=== PATIENT | male | born 1960 | race Caucasian/White ===

== ENCOUNTER 2024-12-24 17:03 | Inpatient (IN) | payer OTHER, SELFPAY ==
[2024-12-24] VITALS (9 sets, daily range): BP systolic 121–158; BP diastolic 76–84; BMI 26.3
--- NOTE | 2024-12-24 13:35 | ED.GENMED ---
ED Provider Triage
<Daron Sorto PA-C - Last Filed: 12/24/24 13:36>
-
Patient seen by provider in Triage?: Seen in Triage
Attestation: A medical screening examination has been initiated by a qualified medical provider. Based on the assessment performed at this time, it has been determined that an emergent medical condition may exist and the patient has been informed
that further medical evaluation and possible additional diagnostic testing may be needed.
HPI: Patient has been experiencing increased exertional dyspnea over the last few weeks, symptoms seem to be more pronounced in the afternoon, developed some pain underneath both arms and has been somewhat pleuritic in nature. Patient recently had
an echocardiogram within the last month and had some form of calcification/abnormality but is unable to further elaborate on this. Patient without any fevers or infectious symptoms. Labs including D-dimer ordered. EKG ordered and without evidence
for STEMI. Patient otherwise stable.
GENERAL: Alert , in no apparent distress
EYE: No visual abnormalities.
NECK: Trachea midline
ENT: No visible abnormalities.
LUNGS: No acute respiratory distress
NEUROLOGICAL: Alert and oriented
SKIN: Skin intact. No visible changes.
MUSCULOSKELETAL: Moving extremities normally
PSYCH: Normal and appropriate interaction.
This is a medical evaluation conducted in person to initiate diagnostic evaluation and provide initial therapeutics. Please see further documentation by the treating clinician.
History of Present Illness
<Daron Sorto PA-C - Last Filed: 12/24/24 13:36>
General
Chief Complaint: Breathing Problem
Time Seen by Provider: 12/24/24 14:55
<Td Jeronimo DO - Last Filed: 12/25/24 19:03>
General
Source: patient
Exam Limitations: none
History of Present Illness
History of Present Illness:
See MDM
Past History
<Daron Sorto PA-C - Last Filed: 12/24/24 13:36>
Past History
ED Past Medical History: CAD, HTN, NIDDM, Renal failure and Other (Kidney transplant)
<Td Jeronimo, DO - Last Filed: 12/25/24 19:03>
Past History
ED Past Surgical History: Other (Kidney transplant)
Social History
Tobacco: Non-smoker
Alcohol: None
Phy Exam
<Td Jeronimo, DO - Last Filed: 12/25/24 19:03>
Physical Exam
Physical Exam:
See MDM
Scores
<Td Jeronimo, DO - Last Filed: 12/25/24 19:03>
Heart Failure Risk
Heart Failure Risk Score: Not Applicable
Course
<Daron Sorto PA-C - Last Filed: 12/24/24 13:36>
Orders/Labs/Results
Orders:
Orders
12/24/24 13:16
Electrocardiogram (*1) Urgent
Reason for Study: Shortness of Breath
12/24/24 13:17
EKG- Treatment ONCE
12/24/24 13:40
COVID-19 Antigen Urgent
Source: Nasal Swab
Complete Blood Count/With Diff Urgent
Comprehensive Metabolic Panel Urgent
D-Dimer Urgent
Glycohemoglobin (HgbA1c) Urgent
NT-proBNP Urgent
Troponin I Urgent
Influenza A+B Rapid Molecular Urgent
TOSHA Source: Nasal Swab
Specimen Description:
12/24/24 15:06
Aspirin Chewable [Low Strength Aspirin] 243 mg PO NOW STA
CR Chest - 2 Views Urgent
Comment:
Reason For Exam: SOB with exertion
12/24/24 15:10
Consult Cardiology [CARDIOLOGY CONSULT] Urgent
Consulting Provider: Rob Parker
Was physician already notified: Yes
12/24/24 15:15
Electrocardiogram (*1) Urgent
Reason for Study: Shortness of Breath
EKG- Treatment ONCE
12/24/24 15:26
Heparin 4,000 units IV NOW STA
Nursing to Place Non Medication Order As Directed
Physician Order: PTT 6 hours after initial start of Heparin infusion
Above order entered?: Yes
12/24/24 15:30
Heparin 11455 Units/250 ml 25,000 units in 250 ml IV PER PROTOCOL
Weight to be used for heparin protocol in kilograms (kg):: 83.007
Protocol:: Cardiac Tx/Acute Coronary
PTT Goal Range to be used:: PTT 73 to 111 seconds
Order type:: Initial
INITIAL Infusion Dose (UNITS/KG/hr) & then follow protocol:: 15 units/kg/hr
Infusion Dose in UNITS/hr & then follow protocol (UNITS/hr):: 1,250
INFUSION RATE in mL/hr & then follow protocol (mL/hr):: 12.5
PTT less than or equal to 64 seconds:: Increase rate by 200 units/hr (+ 2 mL/hr)
PTT 64.1 to 72.9 seconds:: Increase rate by 100 units/hr (+ 1 mL/hr)
PTT 73 to 111 seconds:: Target Range. No change in rate.
PTT 111.1 to 130.9 seconds:: Decrease rate by 100 units/hr (- 1 mL/hr)
PTT 131 to 199.9 seconds:: HOLD for 1 hr. Then decrease rate by 200 units/hr (- 2 mL/hr)
PTT greater than or equal to 200 seconds:: HOLD for 2 hrs & Notify Provider. Then decrease by 200 units/hr (-
2 mL/hr)
Lab follow-up:: Each change, PTT q6h until 2 consecutive are therapeutic. Then PTT
daily.
12/24/24 15:33
PTT Urgent
Comment: Obtain baseline before beginning heparin infusion if not already collected
12/24/24 16:14
Admit/Transfer Patient As Directed
Co-Sign Provider:
Level of Care: Inpatient admission
Assign to:: IVU
Physician / Group: Ceasar Corral
Diagnosis: NSTEMI, chest pain
Reason for Hospitalization: NSTEMI, chest pain
Expected length of stay greater than two midnights?: Yes
ELOS- Estimated Length of Stay in days: 3
I certify the patient meets the requirements for IP care: Yes
12/24/24 16:15
PRN Pain Medication Management As Directed
May give lesser potent ordered pain med per pt: Yes
preference::
Protocol:: Medication orders for pain may be administered in a
manner that supports deferring to patient preference
when the pt is:
- Requesting an ordered lesser potent pain medication.
Least to most potent pain medications are defined
as: acetaminophen < NSAID < tramadol < opioids
(morphine, oxycodone, hydromorphone).
- Requesting a lesser dose of the same medication IF
ORDERED.
- Requesting a less intrusive route of administration
if both routes are prescribed by the provider (PO <
IV).
12/24/24 16:17
Code Status As Directed
Resuscitation Status: Full Code
12/24/24 16:20
Fentanyl Citrate/Pf [Sublimaze] 100 mcg .ROUTE .STK-MED ONE
Heparin 10,000 units .ROUTE .STK-MED ONE
Midazolam HCl [Versed] 2 mg .ROUTE .STK-MED ONE
12/24/24 17:07
Electrocardiogram (*1) Q6H
Reason for Study: Chest Pain
Comment: at admission and Q3H for total of 3, to be done with each troponin
12/24/24 17:07
Activity As Directed
Activity Level: Out of Bed-Early Mobility
Bedside Glucose Monitoring As Directed
Frequency: AC&HS
Additional Instructions:: Change to q6h if pt on TPN, tube feeding or not eating
INT (Intravenous Needle Therapy) As Directed
Comment: maintain peripheral IV access
Intake/ Output As Directed
Frequency: Per unit guidelines
Vital Signs As Directed
Frequency: q4h
Weight As Directed
Frequency: Once
12/24/24 17:20
Dextrose 50%-Water [Dextrose 50% Syringe] 12.5 grams IV [id number] PRN
Glucagon [GlucaGen] 1 mg IM PRN PRN
Insulin Aspart Corrective Low [Novolog Flexpen-Low Resistance] See Protocol SC AC
Nitroglycerin Sublingual [Nitrostat (Sublingual)] 0.4 mg SL [id number] PRN
12/24/24 18:00
Repaglinide [Prandin] 3 mg PO MEALS
Rosuvastatin Calcium [Crestor] 40 mg PO QPM
12/24/24 20:00
Carvedilol [Coreg] 6.25 mg PO BID
Magnesium l-Lactate [Mag-Tab Sr] 84 mg PO BID
Mycophenolate [Cellcept] 500 mg PO BID
12/25/24 04:04
Cardiovascular Evaluation IN AM
Comprehensive Metabolic Panel IN AM
12/25/24 05:07
Electrocardiogram (*1) Q6H
Reason for Study: Chest Pain
Comment: at admission and Q3H for total of 3, to be done with each troponin
12/25/24 06:00
Tacrolimus Xr [Envarsus Xr] 1 mg PO DAILY@0600
12/25/24 08:00
Aspirin Low Dose EC [Aspir Low (Enteric Coated)] 81 mg PO DAILY
Dapagliflozin [Farxiga] 10 mg PO DAILY
Losartan [Cozaar] 25 mg PO DAILY
Prednisone [Deltasone] 5 mg PO DAILY
Tacrolimus Xr [Envarsus Xr] 1.5 mg PO DAILY
12/25/24 12:00
Cholecalciferol (Vitamin D3) [VITAMIN D3 (cholecalciferol)] 25 mcg PO NOON
12/26/24 06:00
Complete Blood Count/No Diff IN AM
Comprehensive Metabolic Panel IN AM
Abnormal Lab Results
12/24/24
13:40
MCHC 32.9 L g/dL
(33.0-37.0)
Absolute Neuts (auto) 7.3 H 10^3/uL
(1.4-6.5)
Absolute Lymphs (auto) 0.6 L 10^3/uL
(1.2-3.4)
Neutrophils % 84.7 H %
(42.2-75.2)
Lymphocytes % 6.3 L %
(20.5-51.1)
BUN 23 H mg/dl
(9-20)
Glucose 241 H mg/dl
(70-99)
Hemoglobin A1c 7.3 H %
(4.0-5.6)
Troponin I 0.883 H* ng/ml
12/24/24 13:40
12/24/24 13:40
Vital Signs
Initial and Last Documented VS:
Initial Vital Signs
Temp Pulse Resp BP Pulse Ox
98.3 F 92 20 142/83 100
12/24/24 13:34 12/24/24 13:34 12/24/24 13:34 12/24/24 13:34 12/24/24 13:34
Last Documented Vital Signs
Temp Pulse Resp BP Pulse Ox
98.2 F 81 18 116/64 97
12/25/24 15:14 12/25/24 15:14 12/25/24 15:14 12/25/24 15:14 12/25/24 15:14
<Td Jeronimo, DO - Last Filed: 12/25/24 19:03>
Orders/Labs/Results
Orders:
Orders
12/24/24 13:16
Electrocardiogram (*1) Urgent
Reason for Study: Shortness of Breath
12/24/24 13:17
EKG- Treatment ONCE
12/24/24 13:40
COVID-19 Antigen Urgent
Source: Nasal Swab
Complete Blood Count/With Diff Urgent
Comprehensive Metabolic Panel Urgent
D-Dimer Urgent
Glycohemoglobin (HgbA1c) Urgent
NT-proBNP Urgent
Troponin I Urgent
Influenza A+B Rapid Molecular Urgent
TOSHA Source: Nasal Swab
Specimen Description:
12/24/24 15:06
Aspirin Chewable [Low Strength Aspirin] 243 mg PO NOW STA
CR Chest - 2 Views Urgent
Comment:
Reason For Exam: SOB with exertion
12/24/24 15:10
Consult Cardiology [CARDIOLOGY CONSULT] Urgent
Consulting Provider: Rob Parker
Was physician already notified: Yes
12/24/24 15:15
Electrocardiogram (*1) Urgent
Reason for Study: Shortness of Breath
EKG- Treatment ONCE
12/24/24 15:26
Heparin 4,000 units IV NOW STA
Nursing to Place Non Medication Order As Directed
Physician Order: PTT 6 hours after initial start of Heparin infusion
Above order entered?: Yes
12/24/24 15:30
Heparin [id number] Units/250 ml 25,000 units in 250 ml IV PER PROTOCOL
Weight to be used for heparin protocol in kilograms (kg):: 83.007
Protocol:: Cardiac Tx/Acute Coronary
PTT Goal Range to be used:: PTT 73 to 111 seconds
Order type:: Initial
INITIAL Infusion Dose (UNITS/KG/hr) & then follow protocol:: 15 units/kg/hr
Infusion Dose in UNITS/hr & then follow protocol (UNITS/hr):: 1,250
INFUSION RATE in mL/hr & then follow protocol (mL/hr):: 12.5
PTT less than or equal to 64 seconds:: Increase rate by 200 units/hr (+ 2 mL/hr)
PTT 64.1 to 72.9 seconds:: Increase rate by 100 units/hr (+ 1 mL/hr)
PTT 73 to 111 seconds:: Target Range. No change in rate.
PTT 111.1 to 130.9 seconds:: Decrease rate by 100 units/hr (- 1 mL/hr)
PTT 131 to 199.9 seconds:: HOLD for 1 hr. Then decrease rate by 200 units/hr (- 2 mL/hr)
PTT greater than or equal to 200 seconds:: HOLD for 2 hrs & Notify Provider. Then decrease by 200 units/hr (-
2 mL/hr)
Lab follow-up:: Each change, PTT q6h until 2 consecutive are therapeutic. Then PTT
daily.
12/24/24 15:33
PTT Urgent
Comment: Obtain baseline before beginning heparin infusion if not already collected
12/24/24 16:14
Admit/Transfer Patient As Directed
Co-Sign Provider:
Level of Care: Inpatient admission
Assign to:: IVU
Physician / Group: Ceasar Corral
Diagnosis: NSTEMI, chest pain
Reason for Hospitalization: NSTEMI, chest pain
Expected length of stay greater than two midnights?: Yes
ELOS- Estimated Length of Stay in days: 3
I certify the patient meets the requirements for IP care: Yes
12/24/24 16:15
PRN Pain Medication Management As Directed
May give lesser potent ordered pain med per pt: Yes
preference::
Protocol:: Medication orders for pain may be administered in a
manner that supports deferring to patient preference
when the pt is:
- Requesting an ordered lesser potent pain medication.
Least to most potent pain medications are defined
as: acetaminophen < NSAID < tramadol < opioids
(morphine, oxycodone, hydromorphone).
- Requesting a lesser dose of the same medication IF
ORDERED.
- Requesting a less intrusive route of administration
if both routes are prescribed by the provider (PO <
IV).
12/24/24 16:17
Code Status As Directed
Resuscitation Status: Full Code
12/24/24 16:20
Fentanyl Citrate/Pf [Sublimaze] 100 mcg .ROUTE .STK-MED ONE
Heparin 10,000 units .ROUTE .STK-MED ONE
Midazolam HCl [Versed] 2 mg .ROUTE .STK-MED ONE
12/24/24 17:07
Electrocardiogram (*1) Q6H
Reason for Study: Chest Pain
Comment: at admission and Q3H for total of 3, to be done with each troponin
12/24/24 17:07
Activity As Directed
Activity Level: Out of Bed-Early Mobility
Bedside Glucose Monitoring As Directed
Frequency: AC&HS
Additional Instructions:: Change to q6h if pt on TPN, tube feeding or not eating
INT (Intravenous Needle Therapy) As Directed
Comment: maintain peripheral IV access
Intake/ Output As Directed
Frequency: Per unit guidelines
Vital Signs As Directed
Frequency: q4h
Weight As Directed
Frequency: Once
12/24/24 17:20
Dextrose 50%-Water [Dextrose 50% Syringe] 12.5 grams IV [id number] PRN
Glucagon [GlucaGen] 1 mg IM PRN PRN
Insulin Aspart Corrective Low [Novolog Flexpen-Low Resistance] See Protocol SC AC
Nitroglycerin Sublingual [Nitrostat (Sublingual)] 0.4 mg SL [id number] PRN
12/24/24 18:00
Repaglinide [Prandin] 3 mg PO MEALS
Rosuvastatin Calcium [Crestor] 40 mg PO QPM
12/24/24 20:00
Carvedilol [Coreg] 6.25 mg PO BID
Magnesium l-Lactate [Mag-Tab Sr] 84 mg PO BID
Mycophenolate [Cellcept] 500 mg PO BID
12/25/24 04:04
Cardiovascular Evaluation IN AM
Comprehensive Metabolic Panel IN AM
12/25/24 05:07
Electrocardiogram (*1) Q6H
Reason for Study: Chest Pain
Comment: at admission and Q3H for total of 3, to be done with each troponin
12/25/24 06:00
Tacrolimus Xr [Envarsus Xr] 1 mg PO DAILY@0600
12/25/24 08:00
Aspirin Low Dose EC [Aspir Low (Enteric Coated)] 81 mg PO DAILY
Dapagliflozin [Farxiga] 10 mg PO DAILY
Losartan [Cozaar] 25 mg PO DAILY
Prednisone [Deltasone] 5 mg PO DAILY
Tacrolimus Xr [Envarsus Xr] 1.5 mg PO DAILY
12/25/24 12:00
Cholecalciferol (Vitamin D3) [VITAMIN D3 (cholecalciferol)] 25 mcg PO NOON
12/26/24 06:00
Complete Blood Count/No Diff IN AM
Comprehensive Metabolic Panel IN AM
Abnormal Lab Results
12/24/24
13:40
MCHC 32.9 L g/dL
(33.0-37.0)
Absolute Neuts (auto) 7.3 H 10^3/uL
(1.4-6.5)
Absolute Lymphs (auto) 0.6 L 10^3/uL
(1.2-3.4)
Neutrophils % 84.7 H %
(42.2-75.2)
Lymphocytes % 6.3 L %
(20.5-51.1)
BUN 23 H mg/dl
(9-20)
Glucose 241 H mg/dl
(70-99)
Hemoglobin A1c 7.3 H %
(4.0-5.6)
Troponin I 0.883 H* ng/ml
12/24/24 13:40
12/24/24 13:40
Vital Signs
Initial and Last Documented VS:
Initial Vital Signs
Temp Pulse Resp BP Pulse Ox
98.3 F 92 20 142/83 100
12/24/24 13:34 12/24/24 13:34 12/24/24 13:34 12/24/24 13:34 12/24/24 13:34
Last Documented Vital Signs
Temp Pulse Resp BP Pulse Ox
98.2 F 81 18 116/64 97
12/25/24 15:14 12/25/24 15:14 12/25/24 15:14 12/25/24 15:14 12/25/24 15:14
<Td Jeronimo, DO - Last Filed: 12/25/24 19:03>
MDM/Problems Addressed
Differential Diagnosis Includes:
HPI and MDM Narrative:
64-year-old male presenting for evaluation of shortness of breath with exertion. This has been ongoing for the past few days. He has noted that it appears to be worse in the afternoon. Symptoms resolved at rest. EKG and blood work done in
triage. He was brought back immediately when his troponin was found to be elevated. Patient currently symptom-free at rest. I discussed with patient my concern for NSTEMI. Looking at his EKG, he does have ST elevations anteriorly compared to his
prior EKG but he currently denies any shortness of breath or chest pain. He did take his baby aspirin today. Will load with 3 more. I question a prior history of coronary artery disease. Patient states he was given a stent 3 years ago at [facility]
during his workup for his kidney transplant. Patient is nervous about possibly getting contrast for a catheterization.
On my exam, he is well-appearing nontoxic. Lungs appear clear. No leg edema or unilateral tenderness. Will obtain chest x-ray and discussed case with cardiology for admission for further workup of presumed NSTEMI and ACS
Physical exam
General: Well appearing and non-toxic
HEENT: protecting airway
Neck: appears supple
CV: No evidence of cyanosis. Regular rate and rhythm
Resp: No accessory muscle use. Lungs clear
Abd: Non-distended
Extremities: No deformities. No leg edema
Neuro: alert
Psych: Normal affect
Skin: Intact
Problems Addressed including Acute and Chronic Conditions affecting care:
1. Exertional dyspnea
Acuity: acute
Prognosis: unstable
Details: Given the concern for NSTEMI and ACS, cardiology made aware immediately. Patient loaded with 3 aspirin since he already took his first aspirin today. In talks with cardiology, will start heparin
Updates
After patient was found to have an elevated troponin in triage, he was brought back immediately. Patient still symptom-free at rest
3:20 PM after discussing case with cardiology, cardiology at bedside immediately
Repeat EKG was performed which remained concerning for acute coronary syndrome. Cardiology suggesting starting heparin and will bring up to [facility]
Differential Diagnosis (but not limited to): NSTEMI, ACS
Testing considered: Second troponin
Drug therapy (if applicable): OTC meds, please see d/c instruction regarding Rx drugs
Amount and/or Complexity of Data Reviewed
Clinical info obtained from: Patient
External data reviewed: N/A
Labs I independently reviewed (but not limited to): Elevated troponin
Radiology: X-ray independently reviewed: Chest x-ray clear
Pulse Ox: not hypoxic
EKG independently reviewed: Sinus rhythm, ST elevation anteriorly but no significant reciprocal changes, normal
[employer]: Sinus rhythm
Critical Care: The high probability of a clinically significant, sudden or life threatening deterioration of the cardiovascular system(s) required my full and direct attention, intervention and personal management. The aggregate critical care time
was 35 minutes. This time is in addition to time spent performing reported procedures but includes the following:
[x] Data Review and interpretation
[x] Patient assessment and monitoring of vital signs
[x] Documentation
[x] Medication orders and management
Risk of Complication:
Social Determinants of health: Good social support
Discussed with other providers: Case Mgr, hospitalist
Escalation of Care includes Admit/Obs: Given the concern for ACS, patient started on heparin drip and admitted to the [facility]
Occasional wrong word or 'sound a like' substitutions may have occurred due to the inherent limitations of voice recognition software. Read the chart carefully and recognize, using context, where substitutions have occurred.
<Td Jeronimo DO - Last Filed: 12/25/24 19:03>
*Critical Care Note
Total Time (30-74mins, 75-104mins- exclusive of procedures): 35 min
ED Attending Note
<Daron Sorto PA-C - Last Filed: 12/24/24 13:36>
-
Portions of this chart may have been created with voice recognition software.� Occasional wrong word or��sound alike� substitutions may have occurred due to the inherent limitations of voice recognition software.
Discharge Plan
Departure
Patient Disposition: [facility]
Presentation/result/management discussed w/ accepting MD/DO: Hospitalist
Discharge Problem:
NSTEMI (non-ST elevated myocardial infarction)
Interventions
Interventions:
*Risk Screen - Suicide Last Done: 12/24/24 13:34
*General Assessment Last Done: 12/24/24 13:34
*Neglect/Abuse Screening Last Done: 12/24/24 13:34
ED- Fall Risk Assessment Last Done: 12/24/24 16:51
*Nursing Disposition Last Done: 12/24/24 16:51
ED- Cardiac Assessment Last Done: 12/24/24 15:45
ED- Pulmonary Assessment Last Done: 12/24/24 15:45
Discharge Date and Time
Discharge Date/Time: 12/24/24 16:51
[2024-12-24 14:15] LABS: % Basophils 0.3 % (0-2); % Eosinophils 1.2 % (0-6); % Immature Granulocytes 0.5 % (0-0.5); % Lymphocytes 6.3 % (20.5-51.1); % Neutrophils 84.7 % (42.2-75.2); Absolute Eosinophils 0.1 10^3/uL (0-0.7); Absolute Lymphocytes 0.6 10^3/uL (1.2-3.4); Absolute Monocytes 0.6 10^3/uL (0.1-0.6); Absolute Neutrophils 7.3 10^3/uL (1.4-6.5); Hematocrit 42.9 % (39.0-52.0); Hemoglobin 14.1 g/dL (13.0-18.0); Mean Corp Hgb Conc. 32.9 g/dL (33.0-37.0); Mean Corpuscular Hgb 27.8 pg (27.0-31.0); Mean Corpuscular Volume 84.4 fL (80.0-94.0); Mean Platelet Volume 10.4 fL (7.4-10.4); Nucleated Red Blood Cells % 0 % (-); Platelet Count 304 10^3/uL (130-400); Red Blood Cell Count 5.08 10^6/uL (4.70-6.10); Red Cell Dist. Width 13.9 % (11.5-14.5); White Blood Cell Count 8.7 10^3/uL (4.8-10.8)
[2024-12-24 14:23] LABS: D-Dimer 0.33 ug/mlFEU (0.00-0.50)
[2024-12-24 14:26] LABS: ALT (SGPT) 17 U/L (0-50); AST (SGOT) 21 U/L (17-59); Albumin 4.1 g/dl (3.5-5.0); Alkaline Phosphatase 68 U/L (38-126); Blood Urea Nitrogen 23 mg/dl (9-20); Calcium 9.2 mg/dl (8.4-10.2); Carbon Dioxide 27 mmol/L (22-30); Chloride 99 mmol/L (98-107); Glucose 241 mg/dl (70-99); Potassium 4.7 mmol/L (3.5-5.1); Sodium 135 mmol/L (135-145); Total Bilirubin 1.1 mg/dl (0.2-1.3); Total Protein 6.3 g/dl (6.3-8.2); eGFR > 60.00
[2024-12-24 14:34] LABS: COVID-19 Antigen Negative (Negative)
[2024-12-24 14:40] LABS: NT-proBNP 7400 pg/ml; Troponin I 0.883 ng/ml
[2024-12-24] MEDS: LOW STRENGTH ASPIRIN 243 MG PO (15:15)
--- NOTE | 2024-12-24 15:18 | HPS.HSE ---
Addendum entered and electronically signed by Ceasar Corral MD 12/24/24 18:28:
Seen and examined by me independently in collaboration with the nurse practitioner Jorge A.
Past medical history/social history/medication/allergies reviewed.
Lab data and imaging data reviewed. Patient with history of CAD, diabetes mellitus, end-stage renal disease s/p kidney transplant 3 years ago on immunosuppressive agents, hypertension presents with increasing exertional symptom of substernal chest
pain with radiating to the shoulders and upper back and also dyspnea. No symptoms at rest.
His symptom is concerning for unstable angina and with his troponin leak of 0.88 concerning for non-ST elevation [place].
EKG shows inferior infarct age undetermined and anterior septal infarct noted in March 2023.
Admit to telemetry. Patient initiated on IV heparin in the ER which I would continue.
Cardiology consulted who is taking him to [facility] today. Further recommendations from cath report.
Hold his metformin otherwise continue with his home medications. Continue with immunosuppressive agents. Start on sliding scale insulin.
His creatinine is 0.8.
Original Note:
Family Physician
-
Family Physician:
Chief Complaint
-
increased exertional dyspnea
History of Present Illness
Patient is a 64-year-old male with past medical history significant for hypertension, CAD, NIDDM, and hx ESRD s/p kidney transplant who presented to [facility] ED for evaluation of increased exertional dyspnea over the past few weeks with
now associated dull pain under both arms and upper mid back for the last two days. He reports that in the last few days he has noticed getting a headache with these symptoms. Patient reports that he gets short of breath and will stop what he is
doing to take a deep breath or two and be able to continue on. He states all symptoms resolve when he rests or takes a few deep breaths. Patient denies any dizziness, cough, palpitations or nausea.
Medical History
Past Medical History
Past Medical History: Reports Other
Additional Past Medical History:
hypertension
hyperlipidemia
CAD
NIDDM
hx ESRD s/p kidney transplant
Past Surgical History: Reports Other
Additional Past Surgical History:
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
MARI OM1 January 2021
Cystoscopy with stone extraction
Hemodialysis with right chest wall CVC x 8 months in 2020
Mohs, multiple
Cholecystectomy 2014
Social History
Tobacco: Non-smoker
Alcohol: None
Drug: None
Personal:
Living: With Family
Employment: Employed (equipment service architect )
Family History
Family History: Other (Mother: COPD; Father: CAD, DM)
Allergies / Home Medications
Allergies reflects when Allergies were last updated in [facility].
Home Medications with original date entered in [facility]
Allergy/Medication List:
Allergies
Allergy/AdvReac Type Severity Reaction Status Date / Time
No Known Allergies Allergy Verified 12/24/24 13:37
Home Medications
carvedilol 3.125 mg tablet 6.25 mg PO Q12H 03/13/23
metformin 500 mg tablet 1,000 mg PO BID 03/13/23
mycophenolate mofetil 250 mg capsule 500 mg PO BID 03/13/23
prednisone 5 mg tablet 5 mg PO DAILY 03/13/23
repaglinide 1 mg tablet 3 mg PO TID 03/13/23
rosuvastatin 5 mg tablet 5 mg PO QPM 03/13/23
tacrolimus 0.75 mg tablet,extended release 24 hr 1.5 mg PO DAILY 03/13/23
tacrolimus 1 mg capsule,extended release 24 hr 1 mg PO DAILY 03/13/23
aspirin 81 mg tablet,delayed release 81 mg PO DAILY 12/24/24
cholecalciferol (vitamin D3) 25 mcg (1,000 unit) tablet (Vitamin D3) 25 mcg PO NOON 12/24/24
empagliflozin 10 mg tablet (Jardiance) 10 mg PO DAILY 12/24/24
losartan 25 mg tablet 25 mg PO DAILY 12/24/24
magnesium oxide 400 mg PO BID 12/24/24
Review of Systems
-
History Source: Patient
Constitutional: Reports No Symptoms
EENT: Reports No Symptoms
Respiratory: Reports Trouble Breathing (exertional shortness of breath)
Cardiac: Reports Chest Pain (bilateral under arm and mid upper back )
Abdomen/GI: Reports No Symptoms
: Reports No Symptoms
Musculoskeletal: Reports No Symptoms
Skin: Reports No Symptoms
Neurological: Reports Headache
Endocrine: Reports No Symptoms
Hematologic/Lymphatic: Reports No Symptoms
Psych: Reports No Symptoms
Physical Exam
Vital Signs
Vital Signs
Temp Pulse Resp BP Pulse Ox
98.3 F 92 20 142/83 100
12/24/24 13:34 12/24/24 13:34 12/24/24 13:34 12/24/24 13:34 12/24/24 13:34
Physical Exam
General: Well Developed, Well Nourished, No Apparent Distress, Comfortable and Conversant
HEENT: NormoCephalic, Moist mucous membranes, Atraumatic, Idana Conjunctivae, Nose Appears Normal and Ears Appear Normal
Respiratory: Clear and Non Labored Respirations
Cardiac: S1/S2 and Regular Rhythm; No Murmur, Rub or Gallop
Breast: Deferred by me
GI: Soft, Non Tender, Non Distended and Normal Bowel Sounds; No Organomegaly
Rectal: Deferred by Provider
Genito-urinary: Deferred by me
Musculoskeletal: No Clubbing, No Cyanosis and No Edema
Skin: Warm and IV/Catheter Site; No Rash
Neuro: Awake, Alert, AO x 3 and Nonfocal/grossly intact
Psych: Calm and Intact Judgment/Insight
Laboratory Results
-
12/24/24 13:40
12/24/24 13:40
Laboratory Results
Total Bilirubin 1.1 mg/dl (0.2-1.3) 12/24/24 13:40
AST 21 U/L (17-59) 12/24/24 13:40
ALT 17 U/L (0-50) 12/24/24 13:40
Alkaline Phosphatase 68 U/L (38-126) 12/24/24 13:40
Troponin I 0.883 ng/ml H* 12/24/24 13:40
Data Reviewed
-
Medical Tests (Nuc Med, Echo, EKG etc): Report Reviewed by me (EKG: NORMAL SINUS RHYTHM POSSIBLE LEFT ATRIAL ENLARGEMENT LEFT AXIS DEVIATION LEFT VENTRICULAR HYPERTROPHY ( R in aVL , Kranthi product ) INFERIOR INFARCT , AGE UNDETERMINED ANTEROSEPTAL
INFARCT (CITED ON OR BEFORE 13-MAR-2023))
Lab Data: Labs Reviewed by me (trop 0.883, BNP 7400)
Impression/Plan
-
IMPRESSION/PLAN:
#chest pain, NSTEMI
EKG: NORMAL SINUS RHYTHM
POSSIBLE LEFT ATRIAL ENLARGEMENT
LEFT AXIS DEVIATION
LEFT VENTRICULAR HYPERTROPHY ( R in aVL , Kranthi product )
INFERIOR INFARCT , AGE UNDETERMINED
ANTEROSEPTAL INFARCT (CITED ON OR BEFORE 13-MAR-2023)
Troponin 0.883
BNP 7400
- admit to IVU
- consult cardiology
- heparin gtt
#hypertension
- continue carvedilol, and losartan
#hyperlipidemia
#CAD
- continue aspirin and rosuvastatin
#NIDDM
- continue Jardiance and repaglinide
- hold metformin
- AccuCheck AC & HS
- SSI
#hx ESRD
s/p kidney transplant
- continue mycophenolate, prednisone and tacrolimus
Code status: full code
DVT prophylaxis: heparin gtt
--- NOTE | 2024-12-24 15:38 | CON.CAR ---
Addendum entered and electronically signed by Rob Parker MD 12/24/24 16:40:
I saw and examined the patient.
The resident's note was reviewed and I agree with the note.
Comment: 64 year old male with PMH CAD s/p stent placement 3 years ago, HTN, ESRD s/p kidney transplant, presented today with substernal CP radiating to his shoulders and his upper back, as well as SOB. His story is most consistent with
accelerating angina with increased frequency of episodes with less exertion and occurring at rest.
- aspirin heparin
- coronary angiography
- echo tomorrow
- lipid profile
- hgba1c
Original Note:
Consultation
Consultation Request
Date/Time Consultation Requested: 12/24/24
Date/Time Consultation Performed: 12/24/24
Requesting Provider: Dr Rob Parker
Performing Provider: Dr Rob Parker
Reason for Consultation: SOB, CP
Medical History
-
Chief Complaint: CP, SOB
History of Present Illness:
64 year old male with PMH CAD s/p stent placement 3 years ago, HTN, ESRD s/p kidney transplant b/l, presented today with substernal CP radiating to his left shoulder and his upper back. He also reports of SOB on exertion, ongoing for a few weeks.
He reports of CP at rest and on exertion which is worsening for the past few weeks. He states that he had kidney transplant at [facility] 3 years ago. Patient recently had an echocardiogram within the last month and had some form of
calcification/abnormality but is unable to further elaborate on this.
Past Medical History
Past Medical History: CAD, HTN and Renal Failure
Social History
Tobacco: Non-Smoker
Alcohol: None
Drug: None
Personal:
Living: With Family
Allergies / Home Medications
Allergy/AdvReac Type Severity Reaction Status Date / Time
No Known Allergies Allergy Verified 12/24/24 13:37
�Medication �Instructions �Recorded �Confirmed �Type
carvedilol 3.125 mg tablet 6.25 mg PO Q12H 03/13/23 12/24/24 History
metformin 500 mg tablet 1,000 mg PO BID 03/13/23 12/24/24 History
mycophenolate mofetil 250 mg 500 mg PO BID 03/13/23 12/24/24 History
capsule
prednisone 5 mg tablet 5 mg PO DAILY 03/13/23 12/24/24 History
repaglinide 1 mg tablet 3 mg PO TID 03/13/23 12/24/24 History
rosuvastatin 5 mg tablet 5 mg PO QPM 03/13/23 12/24/24 History
tacrolimus 0.75 mg tablet,extended 1.5 mg PO DAILY 03/13/23 12/24/24 History
release 24 hr
tacrolimus 1 mg capsule,extended 1 mg PO DAILY 03/13/23 12/24/24 History
release 24 hr
aspirin 81 mg tablet,delayed 81 mg PO DAILY 12/24/24 12/24/24 History
release
cholecalciferol (vitamin D3) 25 25 mcg PO NOON 12/24/24 12/24/24 History
mcg (1,000 unit) tablet (Vitamin
D3)
empagliflozin 10 mg tablet 10 mg PO DAILY 12/24/24 12/24/24 History
(Jardiance)
losartan 25 mg tablet 25 mg PO DAILY 12/24/24 12/24/24 History
magnesium oxide 400 mg PO BID 12/24/24 12/24/24 History
Review of Systems
-
Respiratory: Trouble Breathing
Cardiac: Chest Pain
Physical Exam
Vital Signs
Temp Pulse Resp BP Pulse Ox
98.3 F 92 20 142/83 100
12/24/24 13:34 12/24/24 13:34 12/24/24 13:34 12/24/24 13:34 12/24/24 13:34
Lab Results
12/24/24 13:40
12/24/24 13:40
Troponin I 0.883 ng/ml H* 12/24/24 13:40
Pox-R-Jzzwlungbfq Pept 7400 pg/ml 12/24/24 13:40
Physical Exam
General: No Apparent Distress
HEENT: Normocephalic and Anicteric
Respiratory: Clear
Cardiac: S1/S2 and Regular Rhythm
Musculoskeletal: No Edema
Impression / Plan
-
Impressions
NSTEMI
ESRD s/p kidney transplant
PLAN
NSTEMI
Prior CAD with stent placement, not sure which artery the stent was placed.
Immunocompromised.
Suspect restenosis, plaque rupture.
Patient will need catheterization.
Contacted warehouse pricing and inventory clerk.
Continue ASA, likely DAPT after
Nitroglycerin as needed for pain.
Check HBA1C
High intensity statin
Continue Heparin
ESRD s/p kidney transplant
Consult nephrology, defer to primary
Patient is concerned about use of contrast damaging his kidneys.
Data Reviewed
-
EKG: Tracing Personally Visualized and interpreted, Report Reviewed by me and Discussed with Physician
Labs: Labs Reviewed by me and Discussed with Physician
[2024-12-24 15:50] LABS: APTT 27.4 Sec (23.4-35.0)
[2024-12-24] MEDS: HEPARIN 4000 UNITS IV (15:56)
[2024-12-24] MEDS: HEPARIN 25000 UNITS/250 ML IV ×2 (15:57→21:17)
--- NOTE | 2024-12-24 17:50 | ITS.CL.PN ---
International Trade Teacher - Procedure Note
Procedure
Procedure Note:
CARDIAC CATHETERIZATION REPORT
Date of Procedure: 12/24/2024
Referring: Dr. Rob Parker MD
Indication: NSTEMI
PROCEDURE(S)
1. left heart catheterization
2. coronary angiography
ACCESS: 6F right radial artery (closure: radial band)
CATHETERS
1. 6F JR4
2. 6F JL3.5
MODERATE SEDATION: 27 minutes of moderate sedation was utilized. An independent medical collector was present to assist with and help manage the patient's level of consciousness and physiologic status.
ULTRASOUND GUIDED VASCULAR ACCESS (right radial artery): Ultrasound was utilized for vascular access. The vessel was visualized under ultrasound and noted to be patent. An image of the vessel was stored permanently in the patient's medical record.
Under direct ultrasound guidance, vascular access was obtained using a modified Seldinger technique and a 6 Azerbaijani sheath was placed.
HEMODYNAMIC DATA
LV 127/9 (EDP 16) mmHg
AO 121/66 (mean 89) mmHg
CORONARY ANGIOGRAPHY
Dominance: Right
LM: large with mild distal tapering
LAD: Large vessel giving rise to 3 moderate caliber diagonal branches. There is a focal severe 95% stenosis in the mid LAD and otherwise mild nonobstructive disease.
LCx: Large vessel giving rise to a large branching OM1, moderate caliber OM 2, and moderate caliber LPL branch. There is an 80% stenosis in the ostial circumflex. There is a widely patent stent in the proximal OM1 branch extending proximally into
the proximal circumflex. There is otherwise mild nonobstructive disease.
RCA: Large vessel giving rise to a large RPDA and two RPL branches. There are serial high grade stenoses in the proximal to mid RCA, high grade ostial disease of the RPDA, moderate disease in the RPAV leading into the RPL branches. There is
competitive flow in the RPL branches from L-R collaterals.
RADIATION: dose 400 mGy; DAP 36.6 Gy*cm2; fluoroscopy time 3.9 min
CONCLUSIONS
1. triple vessel obstructive coronary artery disease as described in a young, diabetic, renal transplant patient
2. mildly elevated LV filling pressure and no aortic stenosis
RECOMMENDATIONS
1. expectant management after cardiac catheterization via right radial approach
2. referral for coronary artery bypass grafting with ZAPATA to LAD and additional grafts to the OM1 and RPDA
3. continue medical management of NSTEMI with heparin drip, nitro as needed for chest pain free, ASA, statin, no P2Y12 and no RASS blockade pending possible CT surgery
4. TTE in AM
5. aggressive secondary prevention of coronary artery disease
Signed: Beck Sool MD, PhD
--- NOTE | 2024-12-24 17:52 | CONSULT.CT ---
Addendum entered and electronically signed by NGHIA Rhoades 12/25/24 07:08:
No issues over night
Original Note:
Consultation
-
Date/Time Consultation Requested: 12/24/24
Date/Time Consultation Performed: 12/24/24
Requesting Provider: Gm Solo
Performing Provider: Natalie AGRAWAL for Ernesto Barrera MD
Reason for Consultation: CABG evaluation
Patient History
Physicians
Outpatient Central Station Operator: Stehp Jim ([facility])
Inpatient Central Station Operator: Gm Solo
History of Present Illness
Corby Ochoa is a 64-year-old male ([id number]) with past medical history significant for coronary disease with prior OM1 stent in 2020, type 2 diabetes, end-stage renal disease status post living donor renal transplant in
2021 (on tacrolimus and prednisone), hypertension and hyperlipidemia, who presented to [facility] emergency room on 12/24/2024 with an approximate 3-week history of intermittent exertional dyspnea associated with back and bilateral underarm pain.
Patient noted blood pressure was higher and took extra dose of blood pressure meds which he felt initially improved symptoms. However symptoms recurred with increased frequency prompting him to seek help. Admission troponin was 0.883 and BNP 7400.
Patient underwent left heart catheterization via right radial artery which reported triple-vessel coronary disease. Patient is currently resting in bed and pain-free.
Pertinent negatives: Denies history of CVA/TIA, asthma, dysphagia, GERD, prior radiation to chest, vein stripping
Past Medical History
Past Medical History: CAD (MARI OM1 01/2021 (OM lesion was an incidental finding during w/u for renal transplant), Cancer (Precancerous lesions removed from face), HTN, Hypercholesterolemia, NIDDM (oral therapy) and Renal Failure (hx dialysis and
living renal transplant (from cousin) in 2021-f/b Dr Laron Yao)
Past Surgical History
Past Surgical History: Cholecystectomy, PCI/Stent (OM1) and Other (Living donor renal transplant 2021)
Family History
Father: Cause of (CAD/CABG in his 50s)
Social History
Alcohol: None
Drug: None
Tobacco: Non-Smoker
Personal:
Living: With Spouse
Employment: Employed (equipment food service substitute)
Allergies
Allergy/AdvReac Type Severity Reaction Status Date / Time
No Known Allergies Allergy Verified 12/24/24 13:37
Home Medications
�Medication �Instructions �Recorded �Confirmed �Type
carvedilol 3.125 mg tablet 6.25 mg PO Q12H 03/13/23 12/24/24 History
metformin 500 mg tablet 1,000 mg PO BID 03/13/23 12/24/24 History
mycophenolate mofetil 250 mg 500 mg PO BID 03/13/23 12/24/24 History
capsule
prednisone 5 mg tablet 5 mg PO DAILY 03/13/23 12/24/24 History
repaglinide 1 mg tablet 3 mg PO TID 03/13/23 12/24/24 History
rosuvastatin 5 mg tablet 5 mg PO QPM 03/13/23 12/24/24 History
tacrolimus 0.75 mg tablet,extended 1.5 mg PO DAILY 03/13/23 12/24/24 History
release 24 hr
tacrolimus 1 mg capsule,extended 1 mg PO DAILY 03/13/23 12/24/24 History
release 24 hr
aspirin 81 mg tablet,delayed 81 mg PO DAILY 12/24/24 12/24/24 History
release
cholecalciferol (vitamin D3) 25 25 mcg PO NOON 12/24/24 12/24/24 History
mcg (1,000 unit) tablet (Vitamin
D3)
empagliflozin 10 mg tablet 10 mg PO DAILY 12/24/24 12/24/24 History
(Jardiance)
losartan 25 mg tablet 25 mg PO DAILY 12/24/24 12/24/24 History
magnesium oxide 400 mg PO BID 12/24/24 12/24/24 History
Review of Systems
-
History Source: Patient
General: Reports No Symptoms
HEENT: Reports No Symptoms
Respiratory: Reports No Symptoms
Cardiac: Reports Chest Pain (back and B/L under arm pain on admission-now resolved)
Abdomen/GI: Reports No Symptoms
: Reports No Symptoms
Musculoskeletal: Reports No Symptoms
Skin: Reports No Symptoms
Neurological: Reports No Symptoms
Vascular: Reports No Symptoms
Physical Exam
Vital Signs
Temp 98.3 F 12/24/24 13:34
Temp route: Oral 12/24/24 13:34
Pulse 87 12/24/24 16:15
Resp Rate 28 12/24/24 16:15
Blood pressure 151/84 12/24/24 16:02
Blood pressure extremity used: Left upper arm 12/24/24 13:34
Position: Sitting 12/24/24 13:34
MAP (cuff-Rusty Monitor) 104 12/24/24 16:02
SaO2 99 12/24/24 16:15
Oxygen Mode of Delivery Room air 12/24/24 13:34
Actual Weight 83.007 kg 12/24/24 15:20
Body Mass Index (BMI) 26.3 12/24/24 15:20
Labs
12/24/24 13:40
12/24/24 13:40
PT Cancelled 12/24/24 20:00
APTT Cancelled 12/24/24 20:00
Hemoglobin A1c Cancelled 12/24/24 17:07
Troponin I 0.883 ng/ml H* 12/24/24 13:40
Lnn-P-Nfltrkbiame Pept 7400 pg/ml 12/24/24 13:40
Diagnostic Studies
LHC 12/24/24:
LM: large with mild distal tapering
LAD: Focal severe 95% mid LAD
LCx: 80% ostial circumflex. Patent stent in the proximal OM1 branch extending proximally into the proximal circumflex
RCA: Serial high grade stenoses in the proximal to mid RCA, high grade ostial disease of the RPDA, moderate disease in the RPAV leading into the RPL branches. There is competitive flow in the RPL branches from L-R collaterals.
Exam
General: Well Developed, Well Nourished and No Apparent Distress
HEENT: Normocephalic and Anicteric
Neck: Trachea Midline
Respiratory: Clear
Cardiac: S1/S2 and Regular Rhythm
GI: Soft, Non Tender, Non Distended and Normal Bowel Sounds
Rectal: Deferred by Provider
Skin: Warm and Dry
Neuro: AO x 3, No Motor Deficits and Nonfocal/Grossly Intact
Extremities: Pulses (+2/4 DP pulses B/L)
Lymph: No Lymphadenopathy
Assessment / Plan
-
64-year-old male with history of type 2 diabetes, end-stage renal disease status post living donor renal transplant (11/11/2021) admitted with NSTEMI and found to have triple-vessel coronary disease
-Surgeon to review imaging and discuss risk/benefit with patient and family
- Preop diagnostics ordered
- patient takes tacrolimus, CellCept, Prednisone for immunosuppression s/p renal transplant
- TTE ordered
- To consider nephrology consult
- holding MFM x 48 hours s/p cardiac cath
- hold Jardiance, losartan
Data Reviewed
-
EKG: Report Reviewed by me and Discussed with Physician
Sand And Gravel Plant Operator: Report Reviewed by me and Discussed with Physician
Labs: Labs Reviewed by me and Discussed with Physician
--- NOTE | 2024-12-24 18:30 | PTCARENOTE ---
Pt received from car barn laborer. NSR on tele with HR 80s. R TR band in place, POX 97% on PA. Post cath IV fluids infusing. Pt oriented to room and admission assessment completed. Pt currently sitting at edge of bed eating dinner. Call may within
reach.
[2024-12-24] MEDS: NOVOLOG FLEXPEN-LOW RESISTANCE SC (18:53)
[2024-12-24 18:55] LABS: Glucose - Point of Care 115 mg/dl (70-99)
[2024-12-24] MEDS: CRESTOR 40 MG PO (19:35)
[2024-12-24] MEDS: PRANDIN PO (20:16)
[2024-12-24] MEDS: COREG 6.25 MG PO (20:17)
[2024-12-24] MEDS: MAG-TAB SR 84 MG PO (20:17)
[2024-12-24] MEDS: CELLCEPT 500 MG PO (20:18)
[2024-12-24] MEDS: PRANDIN 1 MG PO (20:18)
--- NOTE | 2024-12-24 21:33 | PTCARENOTE ---
Pt rec'd at change of shift awake,alert with spouse at bedside. right radial R band removed area cleansed with nss new 2x2 drsg placed. Pt aware of limb restrictions and to call immed for bleeding or swelling at radial site. heparin gtt restarted at
2115 per order.
[2024-12-24 21:59] LABS: Glucose - Point of Care 149 mg/dl (70-99)
[2024-12-25] VITALS (8 sets, daily range): BP systolic 112–136; BP diastolic 64–82; BMI 26.3
--- NOTE | 2024-12-25 02:41 | DOWNTIME ---
There was a flexReceipts Client Hospital Pharmacy Technician Downtime on 12/25/2024 from 0100 to 12/25/2023 at 0235 . Downtime documentation of patient's care, including medication administrations, has been reconciled in the electronic record per guidelines. Refer to the
patient's paper chart under the miscellaneous tab to see printed paper medication records and downtime forms.
[2024-12-25 05:07] LABS: % Basophils 0.4 % (0-2); % Eosinophils 2.8 % (0-6); % Immature Granulocytes 0.3 % (0-0.5); % Lymphocytes 9.7 % (20.5-51.1); % Monocytes 9.8 % (1.7-9.3); Absolute Eosinophils 0.2 10^3/uL (0-0.7); Absolute Lymphocytes 0.7 10^3/uL (1.2-3.4); Absolute Monocytes 0.7 10^3/uL (0.1-0.6); Absolute Neutrophils 5.6 10^3/uL (1.4-6.5); Hematocrit 38.8 % (39.0-52.0); Hemoglobin 12.5 g/dL (13.0-18.0); Mean Corp Hgb Conc. 32.2 g/dL (33.0-37.0); Mean Corpuscular Hgb 26.7 pg (27.0-31.0); Mean Corpuscular Volume 82.9 fL (80.0-94.0); Mean Platelet Volume 10.3 fL (7.4-10.4); Nucleated Red Blood Cells % 0 % (-); Platelet Count 241 10^3/uL (130-400); Red Blood Cell Count 4.68 10^6/uL (4.70-6.10); White Blood Cell Count 7.3 10^3/uL (4.8-10.8)
[2024-12-25 05:08] LABS: APTT 44.5 Sec (23.4-35.0)
[2024-12-25 05:11] LABS: ALT (SGPT) 15 U/L (0-50); AST (SGOT) 21 U/L (17-59); Albumin 3.9 g/dl (3.5-5.0); Alkaline Phosphatase 61 U/L (38-126); Blood Urea Nitrogen 18 mg/dl (9-20); Calcium 8.9 mg/dl (8.4-10.2); Carbon Dioxide 26 mmol/L (22-30); Chloride 101 mmol/L (98-107); Estimated Creatinine Clearance 98 ml/min; Glucose 127 mg/dl (70-99); HDL Cholesterol 26 mg/dl; LDL Cholesterol, Calculated 75 mg/dl; Sodium 137 mmol/L (135-145); Total Bilirubin 1.1 mg/dl (0.2-1.3); Total Cholesterol 122 mg/dl (50-199); Total Protein 5.9 g/dl (6.3-8.2); Triglyceride 105 mg/dl (10-149); Very Low Density Lipoprotein 21 mg/dl (0-30); eGFR > 60.00
[2024-12-25] MEDS: ENVARSUS XR 1 MG PO (06:27)
[2024-12-25] MEDS: ENVARSUS XR 1.5 MG PO (06:27)
[2024-12-25] MEDS: CELLCEPT 500 MG PO ×2 (06:27→18:35)
[2024-12-25 08:22] LABS: Glucose - Point of Care 163 mg/dl (70-99)
[2024-12-25] MEDS: PRANDIN PO ×2 (08:32→13:29)
[2024-12-25] MEDS: COREG 6.25 MG PO ×2 (08:33→19:44)
[2024-12-25] MEDS: DELTASONE 5 MG PO (08:33)
[2024-12-25] MEDS: ASPIR LOW (ENTERIC COATED) 81 MG PO (08:33)
[2024-12-25] MEDS: COZAAR 25 MG PO (08:33)
[2024-12-25] MEDS: MAG-TAB SR 84 MG PO ×2 (08:34→19:44)
[2024-12-25] MEDS: NOVOLOG FLEXPEN-LOW RESISTANCE 1 UNITS SC ×3 (08:34→18:35)
[2024-12-25 09:45] LABS: Glycohemoglobin (HgbA1c) 7.3 % (4.0-5.6)
--- NOTE | 2024-12-25 11:02 | W.PN.CD ---
Addendum entered and electronically signed by Corby Bear MD 12/25/24 17:04:
Primary office admin Dr. Steph Jim at [facility]
Addendum entered and electronically signed by Corby Bear MD 12/25/24 17:04:
I saw and examined the patient.
The CIVIL DEFENSE DIRECTOR's note was reviewed and I agree with the note.
64 year old male with PMH CAD , coronary stenting 3 years ago, renal transplan transplant who presented wt and is noted to to have multivessel coronary artery disease.
-Stable out angina overnight
-Continue current medical therapy
-CT surgery evaluation for CABG in process
-Nephrology has consulted for this patient with history of renal transplant
Original Note:
Today's Communication / Plan
-
-continue heparin drip
-echo today
-CTS consult
-continue ASA, statin, BB
Impression / Plan
-
64 year old male with PMH CAD s/p stent placement 3 years ago, HTN, hx kidney transplant who presented with CP and is now seen to have MVD with CT surgery consult.
NSTEMI/CAD:
-troponin as high as 1.8
-echo pending
-Cath 12/24/24: Dominance: Right. LAD: Large vessel giving rise to 3 moderate caliber diagonal branches. There is a focal severe 95% stenosis in the mid LAD and otherwise mild nonobstructive disease. LCx: 80% stenosis in the ostial circumflex.
There is a widely patent stent in the proximal OM1 branch extending proximally into the proximal circumflex. RCA: serial high grade stenoses in the proximal to mid RCA, high grade ostial disease of the RPDA, moderate disease in the RPAV leading into
the RPL branches. There is competitive flow in the RPL branches from L-R collaterals.
-CT surgery is consulted
-continue heparin drip
-no CP
-LDL 75, now on crestor
HTN:
-BP stable
-continue BB
Hx renal transplant:
-on anti rejection meds
-nephrology is consulted
DM:
-hgbA1C 7.3
-management per primary
Physical Exam
Vital Signs/Labs
Vital Signs
Temp Pulse Resp BP Pulse Ox
98.3 F 83 20 116/76 100
12/25/24 07:50 12/25/24 08:33 12/25/24 07:50 12/25/24 08:33 12/25/24 07:50
12/24/24 12/25/24 12/26/24
06:59 06:59 06:59
Actual Weight 83.1 kg
12/25/24 04:04
12/25/24 04:04
PT Cancelled 12/24/24 20:00
INR Cancelled 12/24/24 20:00
APTT 44.5 Sec (23.4-35.0) H 12/25/24 04:04
Triglycerides 105 mg/dl (10-149) 12/25/24 04:04
LDL Cholesterol, Calc 75 mg/dl 12/25/24 04:04
VLDL Cholesterol, Calc 21 mg/dl (0-30) 12/25/24 04:04
HDL Cholesterol 26 mg/dl 12/25/24 04:04
12/24/24
13:40
Teb-A-Pahjljswdky Pept 7400
LAB Results
12/24/24 12/24/24 12/25/24
13:40 18:39 00:00
Troponin I 0.883 H* 1.290 H* D Cancelled
12/25/24
04:04
Troponin I 1.820 H*
Physical Exam
Constitutional: No acute distress
EENT: Anicteric
Cardiovascular: Rhythm & rate is regular
Respiratory: Respiratory effort normal and Lungs clear to auscul.
Neuro/Psych: AO x 3
Other: Cath Site (right radial site stable no hematoma)
Data Reviewed
-
Date of Service: December 25, 2024
EKG: Tracing Personally Visualized and interpreted (SR, stable from previous)
Labs: Labs Reviewed by me
--- NOTE | 2024-12-25 11:05 | W.PN.HOSP.TC ---
Today's Communication/Plan
-
Continue with current medical treatments. Await CT surgery input.
Consult nephrology.
Assessment / Plan
Assessment / Plan
Non-ST elevation [place]
Patient with history of CAD presented with increasing exertional chest pain and shortness of breath concerning for unstable angina and ruled in for non-ST elation IA.
Hemodynamically stable.
No acute CHF decompensation evident
Cardiac catheterization shows multivessel disease.
Await cardiothoracic surgery input.
In meantime continue with IV heparin.
Continue with aspirin, statins and beta-gordon.
Await echocardiogram from today.
Status post renal transplant 3 years ago
On immune O suppressive agents.
According to the patient tacrolimus levels were 5.62 weeks ago
Consult nephrology for management of immunosuppressive agents adriano and post procedure.
His creatinine is 0.8.
Hypertension-continue with Coreg and losartan
Hyperlipidemia-continue with statins
Diabetes mellitus type 2-continue with Jardiance and repaglinide. Hold metformin.
Full code
Anticipated Discharge: > 48 hours
Subjective/Interval History
-
Date of Service: December 25, 2024
Patient without chest pain or shortness of breath.
Objective Data
-
Labs:
Laboratory Results
12/25/24 12/25/24
04:04 11:30
WBC 7.3
Hgb 12.5 L
Hct 38.8 L
Plt Count 241 D
APTT 44.5 H Pending
Sodium 137
Potassium 4.0
Chloride 101
Carbon Dioxide 26
BUN 18
Creatinine 0.8
Glucose 127 H
Calcium 8.9
Total Bilirubin 1.1
AST 21
ALT 15
Alkaline Phosphatase 61
Vital Signs:
Vital Signs
Temp Pulse Resp BP Pulse Ox
98.3 F 83 20 116/76 100
12/25/24 07:50 12/25/24 08:33 12/25/24 07:50 12/25/24 08:33 12/25/24 07:50
I&O
12/24/24 12/25/24 12/26/24
06:59 06:59 06:59
Intake Total 375 / 375 360 / 360
Balance 375 / 375 360 / 360
Review of Systems
-
Constitutional: Denies Fever
EENT: Denies Sore Throat
Respiratory: Denies Cough
Abdomen/GI: Denies Abdominal Pain, Nausea or Vomiting
Neuro: Denies Dizzy
Physical Exam
-
General: No Apparent Distress
HEENT: Moist Mucous Membranes
Respiratory: Clear to Auscultation and Non Labored Respirations; Negative Accessory Resp Muscle Use
Cardiac: Regular Rhythm and S1/S2
GI: Soft
Neuro: AO x 3
Data Reviewed
-
Labs: Labs Reviewed by me
--- NOTE | 2024-12-25 12:23 | CM ---
Chart reviewed. Met with patient's , patient is independent of ADLS, still works, lives with his in a 2 [address], 2 JOVITA, 0 DME[address] Patient waiting on CT evaluation for potential CABG. Plan is for the patient to return home. CM to follow
--- NOTE | 2024-12-25 12:40 | PTCARENOTE ---
Assumed care of pt at change of shift. NSR w/ occasional PVCs on tele, HR 70s-80s. R radial cath site c/d/i with no complications noted, education provided on activity restrictions and pt verbalizes understanding. Heparin gtt currently infusing
at 1450units/hr, no complaints of CP. Pt for pre-op testing today. Plan of care discussed. Call may within reach.
--- NOTE | 2024-12-25 13:01 | W.PN.UPDATE ---
Update Note
Progress Note Update
STS RISK SCORE
Procedure Type:�Isolated CABG
Perioperative Outcome Estimate %
Operative Mortality 0.623%
Morbidity & Mortality 3.7%
Stroke 0.657%
Renal Failure 0.527%
Reoperation 1.58%
Prolonged Ventilation 1.76%
Deep Sternal Wound Infection 0.16%
Long Hospital Stay (>14 days) 2.09%
Short Hospital Stay (<6 days)* 64.3%
Clinical Summary
Planned Surgery: Isolated CABG, Urgent, First cardiovascular surgery
Demographics: 64 year old, White, male, 83kg, 178cm, BMI: 26.2 kg/m�
Lab Values: Creatinine: 0.8 mg/dL, Hematocrit: 38.8%, WBC Count: 7.3 10�/�L, Platelet Count: 539568 cells/�L
PreOp Medications: Steroids <=24 hrs, Oral diabetes control
Substance Abuse: Never smoker
Risk Factors / Comorbidities: Diabetes Mellitus , Hypertension, Immunocompromised
Cardiac Status: NYHA Class III, Ejection Fraction = 50%
Coronary Artery Disease: 3 vessels diseased, Non-ST Elevation PR, PR: 1 to 7 Days
Valve Disease: Trivial/Trace MR, Trivial/Trace TR
Prev. Cardiac Interv: Previous PCI: Not during this episode of care
[2024-12-25 13:14] LABS: Glucose - Point of Care 190 mg/dl (70-99)
[2024-12-25 13:30] LABS: APTT 55.3 Sec (23.4-35.0); INR 1.03
[2024-12-25] MEDS: VITAMIN D3 (cholecalciferol) 25 MCG PO (13:30)
[2024-12-25 13:32] LABS: Urine Albumin Negative (Neg - Trace); Urine Bilirubin Negative (Negative); Urine Character Clear (Clear); Urine Color Yellow; Urine Glucose 4+ (Negative); Urine Ketone 1+ (Negative); Urine Leukocyte Negative (Negative); Urine Nitrite Negative (Negative); Urine Occult Blood Negative (Negative); Urine Urobilinogen Negative (Neg - 1+); Urine pH 6.5 (5.0-9.0)
--- NOTE | 2024-12-25 14:41 | W.CON.NEPH ---
Consultation
-
Date/Time Consultation Requested: December 25, 2024 at 11 AM
Date/Time Consultation Performed: December 25, 2024 at 2 PM
Requesting Provider: Dr. Corral
Performing Provider: Dr. Ruano
Reason for Consultation: Renal transplant management
Medical History
-
Chief Complaint: shortness of breath
History of Present Illness:
64-year-old male with past medical history significant for hypertension, CAD, NIDDM, and hx ESRD s/p kidney transplant who presented to [facility] ED for evaluation of increased exertional dyspnea over the past few weeks.
He had a cardiac catheterization subsequently showed triple-vessel disease of this with severe disease in the LAD. Cardio thoracic surgery evaluation for bypass pending.
Renal consult for management of his renal transplant and immunosuppressive therapy.
He is a renal transplant patient living related transplant as of 2021 at [facility]. He was on dialysis for about 8 months prior to that.
He is on 3 drug regimen with a stable creatinine.
Reviewed outpatient records was last seen July 2024 in our office. No changes were made at that office visit his renal function was stable.
Past Medical History
hypertension, CAD, NIDDM, and hx ESRD s/p kidney transplant
Social History
Tobacco: Non-Smoker
Alcohol: None
Family History
No renal disease
Allergies / Home Medications
Allergy/AdvReac Type Severity Reaction Status Date / Time
No Known Allergies Allergy Verified 12/24/24 13:37
�Medication �Instructions �Recorded �Confirmed �Type
carvedilol 3.125 mg tablet 6.25 mg PO Q12H 03/13/23 12/24/24 History
metformin 500 mg tablet 1,000 mg PO BID 03/13/23 12/24/24 History
mycophenolate mofetil 250 mg 500 mg PO BID 03/13/23 12/24/24 History
capsule
prednisone 5 mg tablet 5 mg PO DAILY 03/13/23 12/24/24 History
repaglinide 1 mg tablet 3 mg PO TID 03/13/23 12/24/24 History
rosuvastatin 5 mg tablet 5 mg PO QPM 03/13/23 12/24/24 History
tacrolimus 0.75 mg tablet,extended 1.5 mg PO DAILY 03/13/23 12/24/24 History
release 24 hr
tacrolimus 1 mg capsule,extended 1 mg PO DAILY 03/13/23 12/24/24 History
release 24 hr
aspirin 81 mg tablet,delayed 81 mg PO DAILY 12/24/24 12/24/24 History
release
cholecalciferol (vitamin D3) 25 25 mcg PO NOON 12/24/24 12/24/24 History
mcg (1,000 unit) tablet (Vitamin
D3)
empagliflozin 10 mg tablet 10 mg PO DAILY 12/24/24 12/24/24 History
(Jardiance)
losartan 25 mg tablet 25 mg PO DAILY 12/24/24 12/24/24 History
magnesium oxide 400 mg PO BID 12/24/24 12/24/24 History
Review of Systems
-
without chest pain or shortness of breath
All other systems: Negative unless noted
Physical Exam
Vital Signs
Vital Signs
Temp Pulse Resp BP Pulse Ox
97.3 F 71 18 115/69 100
12/25/24 11:07 12/25/24 11:09 12/25/24 11:07 12/25/24 11:09 12/25/24 11:07
Lab Results
WBC 7.3 10^3/uL (4.8-10.8) 12/25/24 04:04
RBC 4.68 10^6/uL (4.70-6.10) L 12/25/24 04:04
Hgb 12.5 g/dL (13.0-18.0) L 12/25/24 04:04
Hct 38.8 % (39.0-52.0) L 12/25/24 04:04
Plt Count 241 10^3/uL (130-400) D 12/25/24 04:04
Sodium 137 mmol/L (135-145) 12/25/24 04:04
Potassium 4.0 mmol/L (3.5-5.1) 12/25/24 04:04
Chloride 101 mmol/L (98-107) 12/25/24 04:04
Carbon Dioxide 26 mmol/L (22-30) 12/25/24 04:04
BUN 18 mg/dl (9-20) 12/25/24 04:04
Creatinine 0.8 mg/dL (0.7-1.3) 12/25/24 04:04
eGFR > 60.00 12/25/24 04:04
Glucose 127 mg/dl (70-99) H 12/25/24 04:04
Calcium 8.9 mg/dl (8.4-10.2) 12/25/24 04:04
Dqt-T-Mbadlxvapaq Pept 7400 pg/ml 12/24/24 13:40
Albumin 3.9 g/dl (3.5-5.0) 12/25/24 04:04
Physical Exam
General no acute distress
HEENT no cephalic atraumatic extraocular muscle intact no scleral icterus no JVD neck supple
lungs clear to auscultation bilateral
heart regular S1-S2 positive
abdomen soft nontender positive bowel sounds
extremities no edema pulses present bilateral
Neurologically nonfocal alert and oriented x 3
Skin no lesions no abrasions no petechiae
Psych normal affect no bizarre behavior
Data Reviewed
-
Labs: Labs Reviewed by me and Discussed with Family
Assessment/Plan
-
64-year-old male with past medical history significant for hypertension, CAD, NIDDM, and hx ESRD s/p kidney transplant who presented to [facility] ED for evaluation of increased exertional dyspnea over the past few weeks
Renal consult for transplant management and perioperative
Impression.
Renal transplant 2021 living related donor.
Coronary artery disease three-vessel requiring cardiothoracic surgery.
Hypertension.
Diabetes.
Plan.
From renal standpoint patient is stable. No changes indicated at this time
Continue immunosuppressive therapy.
I will check a tacrolimus level to assure that it is not too high and overly suppressed.
Discontinue SGLT2 inhibitor day prior to surgery to avoid potential euglycemic DKA postoperative.
[2024-12-25] MEDS: HEPARIN 25000 UNITS/250 ML IV (15:37)
[2024-12-25 17:15] LABS: Glucose - Point of Care 198 mg/dl (70-99)
[2024-12-25] MEDS: PRANDIN 3 MG PO (17:32)
[2024-12-25] MEDS: CRESTOR 40 MG PO (18:34)
--- NOTE | 2024-12-25 20:22 | PTCARENOTE ---
Patient received at change of shift out of bed to the chair. Heparin gtt infusing at 1650units/hr per protocol/order. Sinus rhythm on classroom monitor with occasional PVCs. Right radial site with gauze and tegaderm C/D/I, area soft to palpation,
bilateral radial pulse palpable. Patient's only complaint is shortness of breath/dyspnea on exertion, reports it is the same as when he was admitted. Oxygen saturation on room air 97-98%. Denies chest pain or pressure. Plan of care discussed. Call
may within reach. Care ongoing.
[2024-12-25 22:14] LABS: Glucose - Point of Care 176 mg/dl (70-99)
[2024-12-26] VITALS (7 sets, daily range): BP systolic 116–146; BP diastolic 71–90
[2024-12-26 03:38] LABS: Hematocrit 38.6 % (39.0-52.0); Hemoglobin 12.6 g/dL (13.0-18.0); Mean Corp Hgb Conc. 32.6 g/dL (33.0-37.0); Mean Corpuscular Hgb 26.6 pg (27.0-31.0); Mean Corpuscular Volume 81.4 fL (80.0-94.0); Mean Platelet Volume 10.1 fL (7.4-10.4); Platelet Count 235 10^3/uL (130-400); Red Blood Cell Count 4.74 10^6/uL (4.70-6.10); Red Cell Dist. Width 13.8 % (11.5-14.5); White Blood Cell Count 6.7 10^3/uL (4.8-10.8)
[2024-12-26 03:43] LABS: APTT 70.9 Sec (23.4-35.0)
[2024-12-26 03:48] LABS: ALT (SGPT) 13 U/L (0-50); AST (SGOT) 19 U/L (17-59); Albumin 3.5 g/dl (3.5-5.0); Alkaline Phosphatase 62 U/L (38-126); Blood Urea Nitrogen 19 mg/dl (9-20); Calcium 8.7 mg/dl (8.4-10.2); Carbon Dioxide 26 mmol/L (22-30); Chloride 103 mmol/L (98-107); Estimated Creatinine Clearance 112 ml/min; Glucose 136 mg/dl (70-99); Potassium 3.8 mmol/L (3.5-5.1); Sodium 136 mmol/L (135-145); Total Bilirubin 0.8 mg/dl (0.2-1.3); Total Protein 5.6 g/dl (6.3-8.2); eGFR > 60.00
[2024-12-26] MEDS: HEPARIN 25000 UNITS/250 ML IV ×2 (06:21→21:57)
[2024-12-26] MEDS: CELLCEPT 500 MG PO ×2 (06:23→18:12)
[2024-12-26] MEDS: ENVARSUS XR 1 MG PO (06:23)
[2024-12-26] MEDS: ENVARSUS XR 1.5 MG PO (06:23)
[2024-12-26 07:20] LABS: Glucose - Point of Care 180 mg/dl (70-99)
[2024-12-26] MEDS: PRANDIN 3 MG PO ×3 (08:32→18:06)
[2024-12-26] MEDS: NOVOLOG FLEXPEN-LOW RESISTANCE 1 UNITS SC (08:32)
[2024-12-26] MEDS: MAG-TAB SR 84 MG PO ×2 (08:33→21:11)
[2024-12-26] MEDS: COREG 6.25 MG PO ×2 (08:33→21:11)
[2024-12-26] MEDS: ASPIR LOW (ENTERIC COATED) 81 MG PO (08:33)
[2024-12-26] MEDS: DELTASONE 5 MG PO (08:33)
[2024-12-26] MEDS: COZAAR PO (09:02)
[2024-12-26 10:37] LABS: APTT 89.7 Sec (23.4-35.0)
--- NOTE | 2024-12-26 11:34 | W.PN.NEPH.PH ---
Today's Communication / Plan
-
No change. Pending tacrolimus level
Assessment/Plan
-
64-year-old male with past medical history significant for hypertension, CAD, NIDDM, and hx ESRD s/p kidney transplant who presented to [facility] ED for evaluation of increased exertional dyspnea over the past few weeks
Renal consult for transplant management and perioperative
Impression.
Renal transplant 2021 living related donor.
Coronary artery disease three-vessel requiring CABG
Hypertension.
Diabetes.
Plan.
From renal standpoint patient is stable. No changes to suppressive therapy indicated at this time
Continue tacrolimus/prednisone/mycophenolate
I will check a tacrolimus level to assure that it is not too high and overly suppressed.
Discontinue SGLT2 inhibitor to avoid potential euglycemic DKA postoperative.
CT surgery tomorrow
-
-
Date of Service: December 26, 2024
CC / HPI / ROS
-
Chief Complaint:
Weakness with shortness of breath
History of Present Illness:
Renal transplant patient presents with weakness and shortness of breath found to have three-vessel disease Pending bypass
Review of Systems:
No chest pain or shortness of
Labs
-
Labs:
WBC 6.7 10^3/uL (4.8-10.8) 12/26/24 02:12
RBC 4.74 10^6/uL (4.70-6.10) 12/26/24 02:12
Hgb 12.6 g/dL (13.0-18.0) L 12/26/24 02:12
Hct 38.6 % (39.0-52.0) L 12/26/24 02:12
Plt Count 235 10^3/uL (130-400) 12/26/24 02:12
Sodium 136 mmol/L (135-145) 12/26/24 02:12
Potassium 3.8 mmol/L (3.5-5.1) 12/26/24 02:12
Chloride 103 mmol/L (98-107) 12/26/24 02:12
Carbon Dioxide 26 mmol/L (22-30) 12/26/24 02:12
BUN 19 mg/dl (9-20) 12/26/24 02:12
Creatinine 0.7 mg/dL (0.7-1.3) 12/26/24 02:12
eGFR > 60.00 12/26/24 02:12
Glucose 136 mg/dl (70-99) H 12/26/24 02:12
Calcium 8.7 mg/dl (8.4-10.2) 12/26/24 02:12
Qgs-X-Gjeepacriiu Pept 7400 pg/ml 12/24/24 13:40
Albumin 3.5 g/dl (3.5-5.0) 12/26/24 02:12
Physical Exam
-
Vital Signs:
Vital Signs
Temp Pulse Resp BP Pulse Ox
97.6 F 79 20 139/90 100
12/26/24 07:56 12/26/24 08:00 12/26/24 07:56 12/26/24 07:56 12/26/24 08:41
Respiratory:: Bilateral: CTA
Lung Excursion:: Normal
Abdomen:: Soft
Bowel Sounds:: None
Extremity Edema:: None: Bilateral:
--- NOTE | 2024-12-26 12:11 | W.PN.HOSP.TC ---
Today's Communication/Plan
-
cw current tx
Ongoing CABG eval - OR in am
Assessment / Plan
Assessment / Plan
Non-ST elevation [place]
Patient with history of CAD presented with increasing exertional chest pain and shortness of breath concerning for unstable angina and ruled in for non-ST elation [place].
Hemodynamically stable.
No acute CHF decompensation evident
Cardiac catheterization shows multivessel disease.
In meantime continue with IV heparin.
Continue with aspirin, statins and beta-gordon.
ECHO with severely reduced LV function, EF 30%. LAD distribution mostly severely hypokinetic.
Cardiothoracic surgery reviewed the patient and CABG eval ongoing
Status post renal transplant 3 years ago
On immune O suppressive agents.
According to the patient tacrolimus levels were 5.62 weeks ago
Appt nephrology input management of immunosuppressive agents pre procedure.
His creatinine is 0.8.
Hypertension-continue with Coreg and losartan
Hyperlipidemia-continue with statins
Diabetes mellitus type 2-continue with repaglinide. Hold metformin.Hold Jardiance day before surgery
Full code
Anticipated Discharge: > 48 hours
Subjective/Interval History
-
Date of Service: December 26, 2024
Patient without chest pain or shortness of breath.
He is going to CABG tomorrow.
Objective Data
-
Labs:
Laboratory Results
12/26/24 12/26/24 12/26/24
02:12 10:07 16:15
WBC 6.7
Hgb 12.6 L
Hct 38.6 L
Plt Count 235
APTT 70.9 H 89.7 H Pending
Sodium 136
Potassium 3.8
Chloride 103
Carbon Dioxide 26
BUN 19
Creatinine 0.7
Glucose 136 H
Calcium 8.7
Total Bilirubin 0.8
AST 19
ALT 13
Alkaline Phosphatase 62
Vital Signs:
Vital Signs
Temp Pulse Resp BP Pulse Ox
97.6 F 79 20 139/90 100
12/26/24 07:56 12/26/24 08:00 12/26/24 07:56 12/26/24 07:56 12/26/24 08:41
I&O
12/25/24 12/26/24 12/27/24
06:59 06:59 06:59
Intake Total 375 / 375 360 / 360
Output Total 800 / 800
Balance 375 / 375 -440 / -440
Review of Systems
-
Constitutional: Denies Fever
EENT: Denies Sore Throat
Respiratory: Denies Cough
Abdomen/GI: Denies Abdominal Pain, Nausea or Vomiting
Neuro: Denies Dizzy
Physical Exam
-
General: No Apparent Distress
HEENT: Moist Mucous Membranes
Respiratory: Clear to Auscultation and Non Labored Respirations; Negative Accessory Resp Muscle Use
Cardiac: Regular Rhythm and S1/S2
Neuro: AO x 3
Data Reviewed
-
Labs: Labs Reviewed by me
[2024-12-26 12:16] LABS: Glucose - Point of Care 216 mg/dl (70-99)
[2024-12-26] MEDS: NOVOLOG FLEXPEN-LOW RESISTANCE 2 UNITS SC ×2 (13:19→18:05)
[2024-12-26] MEDS: VITAMIN D3 (cholecalciferol) 25 MCG PO (13:20)
[2024-12-26 16:43] LABS: APTT 101.3 Sec (23.4-35.0)
--- NOTE | 2024-12-26 16:44 | CM ---
spoke tp ot and in room, he is pre vindep, lives with his in a 1 story house with a basement and 2 steps to enter. he denies any dme's. we discussed preop CABG teaching including sternal and lifting restrictions, he has the CT Surgery educ
book. he is agreeable toa f/u visit from the ct transitional care nurse after dc. cm role explained and all questions answered. plan is for CABG tomorrow am .
[2024-12-26 17:07] LABS: Glucose - Point of Care 205 mg/dl (70-99)
[2024-12-26] MEDS: CRESTOR 40 MG PO (18:06)
--- NOTE | 2024-12-26 19:27 | PTCARENOTE ---
Pt denies any discomfort, up walking in halls and visiting with family. CT scan of chest done without contrast. Heparin infusion therapeutic. Telemetry shows sinus rhythm. Plan for CVOR prep tonight, report given and pt transferred to CVICU.
--- NOTE | 2024-12-26 20:00 | PTCARENOTE ---
Received patient from IVU RN. Patient in bed, AOx3, calm; at bedside. NSR on monitor w/ occasional PVCs, heart tones audible. Lungs CTA on RA. Normoactive BS, endorses LBM today, appetite good, plan for NPO at midnight for pending surgery.
Voiding spontaneously without difficulty. Skin intact. Patient had first CHG shower in preparation for procedure in the morning, tolerated well, hair clipped per protocol. PIV x1 infusing heparin. Call may within reach, assessment of needs ongoing.
See nursing worklist for intervention details.
--- NOTE | 2024-12-26 20:34 | W.PN.CD ---
Today's Communication / Plan
-
stable awaiting cabg
Impression / Plan
-
64 year old male with PMH CAD s/p stent placement 3 years ago, HTN, hx kidney transplant who presented with CP and is now seen to have MVD with CT surgery consult.
NSTEMI/CAD:
-troponin as high as 1.8
-echo pending
-Cath 12/24/24: Dominance: Right. LAD: Large vessel giving rise to 3 moderate caliber diagonal branches. There is a focal severe 95% stenosis in the mid LAD and otherwise mild nonobstructive disease. LCx: 80% stenosis in the ostial circumflex.
There is a widely patent stent in the proximal OM1 branch extending proximally into the proximal circumflex. RCA: serial high grade stenoses in the proximal to mid RCA, high grade ostial disease of the RPDA, moderate disease in the RPAV leading into
the RPL branches. There is competitive flow in the RPL branches from L-R collaterals.
-CT surgery consulted, planning CABG 12/27/24
-continue heparin drip
-no CP
-LDL 75, now on crestor
HTN:
-BP stable
-continue BB
Hx renal transplant:
-on anti rejection meds
-nephrology is consulted to assist in perioperative managment
DM:
-hgbA1C 7.3
-management per primary
TTE 12/26/2024
Left ventricle is mildly dilated. Severely reduced left ventricular systolic
function.
Left ventricular ejection fraction is 30% by volumetric assessment.
Lateral toney are best preserved, LAD distribution most severely hypokinetic.
Stage II diastolic dysfunction suggestive of abnormal relaxation and increased
filling pressures.
No significant valvular disease.
No prior study available for comparison.
Physical Exam
Vital Signs/Labs
Vital Signs
Temp Pulse Resp BP Pulse Ox
36.4 C 78 18 116/72 100
12/26/24 17:03 12/26/24 19:43 12/26/24 17:03 12/26/24 19:43 12/26/24 17:03
12/25/24 12/26/24 12/27/24
06:59 06:59 06:59
Actual Weight 83.1 kg
12/26/24 02:12
12/26/24 02:12
PT 14.0 Sec (11.4-14.6) 12/25/24 13:06
INR 1.03 12/25/24 13:06
APTT 101.3 Sec (23.4-35.0) H 12/26/24 16:23
Triglycerides 105 mg/dl (10-149) 12/25/24 04:04
LDL Cholesterol, Calc 75 mg/dl 12/25/24 04:04
VLDL Cholesterol, Calc 21 mg/dl (0-30) 12/25/24 04:04
HDL Cholesterol 26 mg/dl 12/25/24 04:04
12/24/24
13:40
Les-D-Gwajgfjqega Pept 7400
LAB Results
12/24/24 12/24/24 12/25/24
13:40 18:39 00:00
Troponin I 0.883 H* 1.290 H* D Cancelled
12/25/24 12/25/24
04:04 13:06
Troponin I 1.820 H* 1.680 H*
Physical Exam
Constitutional: No acute distress
Cardiovascular: Rhythm & rate is regular
Respiratory: Respiratory effort normal
Neuro/Psych: AO x 3
Data Reviewed
-
Date of Service: December 26, 2024
Medical Decision Making: Reviewed Test Results
Echo: Report Reviewed by me
Labs: Labs Reviewed by me
[2024-12-26 22:33] LABS: Glucose - Point of Care 193 mg/dl (70-99)
[2024-12-26] MEDS: NOVOLOG FLEXPEN 1 UNITS SC (23:38)
--- NOTE | 2024-12-27 | PTCARENOTE ---
Patient assessment unchanged, 1 u insulin for hypergylcemia, sleeping between care, no issues.
--- NOTE | 2024-12-27 04:00 | PTCARENOTE ---
No assessment changes, patient sleeping between care.
[2024-12-27 04:38] VITALS: BP 154/84
[2024-12-27 05:57] VITALS: BP 158/83
[2024-12-27] MEDS: BACTROBAN 2% OINTMENT 1 APPLIC NASAL ×2 (05:58→20:21)
[2024-12-27] MEDS: MAGNESIUM OXIDE 500 MG PO (05:58)
[2024-12-27] MEDS: PROTONIX 40 MG PO (05:58)
[2024-12-27] MEDS: LOPRESSOR 25 MG PO (05:58)
[2024-12-27 06:00] VITALS: BMI 26.0
[2024-12-27 06:01] VITALS: BP 154/82
--- NOTE | 2024-12-27 06:07 | W.CVOR.SURPR ---
CVOR Surgeon Immed Pre Op
-
I have examined this patient prior to performance of the scheduled procedure.
The patient's condition is unchanged from the time of the dictated/written History and
Physical and the patient is able to undergo the scheduled procedure.
It was my pleasure to meet with Mr. Corby Ochoa and his . He is a very pleasant 64-year-old gentleman with past medical history significant for prior KTxp. He also has a family history of significant early CAD. Recent cardiac
catheterization demonstrated multivessel CAD prompting evaluation for surgical revascularization. I reviewed his films and all available preoperative imaging. I believe he will benefit from CABG. I anticipate CHARANJIT to LAD, RA to OM, and greater
saphenous vein to PDA. I have previously had a very long conversation with Mr. Ochoa and his . We reviewed his coronary pathology, discussed the proposed operative interventions, reviewed the periprocedural risks (including, but not limited
to, , stroke, PR, arrhythmia, PNA, ALFREDO/F, bleeding, and infection), discussed expected hospital postprocedural course, and reviewed the expected outpatient recovery. All questions were answered to the best my abilities. The patient was
agreeable to proceed. Informed consent has been obtained and is on the chart. Will proceed to the OR today 12/27/2024.
Thank you for the opportunity to participate in the care of this patient.
Daron Elkins MD
[phone]
[2024-12-27] MEDS: ENVARSUS XR 1.5 MG PO (06:24)
[2024-12-27] MEDS: ENVARSUS XR 1 MG PO (06:24)
[2024-12-27] MEDS: CELLCEPT 500 MG PO ×2 (06:24→18:23)
[2024-12-27 06:50] LABS: APTT 79.1 Sec (23.4-35.0)
--- NOTE | 2024-12-27 06:55 | PTCARENOTE ---
Patient prepped for surgery per protocol. CHG shower complete, wiped with CHG, all equipment for OR sent with patient.
[2024-12-27 07:21] LABS: Urine Albumin 1+ (Neg - Trace); Urine Bilirubin Negative (Negative); Urine Character Clear (Clear); Urine Color Yellow; Urine Glucose 4+ (Negative); Urine Ketone 2+ (Negative); Urine Leukocyte Negative (Negative); Urine Nitrite Negative (Negative); Urine Occult Blood 1+ (Negative); Urine Specific Gravity 1.015 (<1.030); Urine Urobilinogen Negative (Neg - 1+); Urine pH 6.5 (5.0-9.0)
[2024-12-27 07:27] LABS: ACT+ - POC 101 Seconds (82-134)
[2024-12-27 08:24] LABS: Urine Amorphous Seen; Urine Mucus Few
[2024-12-27 08:26] LABS: Urine Red Blood Cell 0-2 /HPF (0-2); Urine White Cell 0-2 /HPF (0-5)
--- NOTE | 2024-12-27 08:41 | CM ---
Reviewed chart. Mr. Ochoa is in the operating room today. Prior to admission he resides with his spouse in a one story home with a basement with two steps to enter. Prior to admission he was independent with ambulation and adls. He does not
have a DME in the home. He has a prescription plan. Medical work-up in progress. The discharge plan is to return home with his spouse and a home visit by the Transitional Care Nurse when medically stable.
[2024-12-27 09:12] LABS: B.E. - POC 1.9 mmol/L; Glucose - POC 209 mg/dl (70-99); HCO3 - POC 26 mmol/L (21-28); Hematocrit - POC 35 % PCV (42-52); Hemodilution- POC No; Hemoglobin Calculated - POC 11.9; Lactate - POC 0.68 mmol/L (0.36-0.75); O2 Saturation %Calculated-POC 99.2 % (94-98); PCO2 - POC 38 mmHg (35-48); PO2 - POC 139 mmHg (83-108); POC Comment PRE; Potassium - POC 3.8 mmol/L (3.5-5.1); Sodium - POC 138 mmol/L (136-145); Specimen Type - POC Arterial; pH - POC 7.44 (7.35-7.45)
[2024-12-27 09:57] LABS: ACT+ - POC 451 Seconds (82-134)
[2024-12-27 10:10] LABS: ACT+ - POC 565 Seconds (82-134)
[2024-12-27 10:33] LABS: B.E. - POC -2.7 mmol/L; Glucose - POC 209 mg/dl (70-99); HCO3 - POC 22 mmol/L (21-28); Hematocrit - POC 31 % PCV (42-52); Hemodilution- POC No; Hemoglobin Calculated - POC 10.7; Lactate - POC 0.62 mmol/L (0.36-0.75); O2 Saturation %Calculated-POC 99.4 % (94-98); PCO2 - POC 37 mmHg (35-48); PO2 - POC 160 mmHg (83-108); Potassium - POC 3.6 mmol/L (3.5-5.1); Sodium - POC 139 mmol/L (136-145); Specimen Type - POC Arterial; pH - POC 7.39 (7.35-7.45)
[2024-12-27 10:41] LABS: ACT+ - POC 457 Seconds (82-134)
[2024-12-27 11:02] LABS: ACT+ - POC 492 Seconds (82-134)
[2024-12-27 11:10] LABS: ACT+ - POC 483 Seconds (82-134)
[2024-12-27 11:25] LABS: B.E. - POC 3.7 mmol/L; Glucose - POC 173 mg/dl (70-99); HCO3 - POC 28 mmol/L (21-28); Hematocrit - POC 29 % PCV (42-52); Hemodilution- POC Yes; Hemoglobin Calculated - POC 9.9; Ionized Calcium - POC 1.12 mmol/L (1.15-1.33); Lactate - POC 0.91 mmol/L (0.36-0.75); O2 Saturation %Calculated-POC 99.8 % (94-98); PCO2 - POC 41 mmHg (35-48); PO2 - POC 222 mmHg (83-108); Potassium - POC 3.7 mmol/L (3.5-5.1); Sodium - POC 140 mmol/L (136-145); Specimen Type - POC Arterial; pH - POC 7.45 (7.35-7.45)
[2024-12-27 11:37] LABS: ACT+ - POC 556 Seconds (82-134)
[2024-12-27 11:53] LABS: B.E. - POC 1.8 mmol/L; Glucose - POC 174 mg/dl (70-99); HCO3 - POC 26 mmol/L (21-28); Hematocrit - POC 36 % PCV (42-52); Hemodilution- POC Yes; Hemoglobin Calculated - POC 12.1; Ionized Calcium - POC 1.12 mmol/L (1.15-1.33); Lactate - POC 1.42 mmol/L (0.36-0.75); O2 Saturation %Calculated-POC 99.3 % (94-98); PCO2 - POC 36 mmHg (35-48); PO2 - POC 144 mmHg (83-108); Potassium - POC 4.1 mmol/L (3.5-5.1); Sodium - POC 140 mmol/L (136-145); Specimen Type - POC Arterial; pH - POC 7.46 (7.35-7.45)
[2024-12-27 12:01] LABS: ACT+ - POC 478 Seconds (82-134)
[2024-12-27 12:24] LABS: B.E. - POC 2.3 mmol/L; Glucose - POC 133 mg/dl (70-99); HCO3 - POC 27 mmol/L (21-28); Hematocrit - POC 34 % PCV (42-52); Hemodilution- POC Yes; Hemoglobin Calculated - POC 11.5; Ionized Calcium - POC 1.12 mmol/L (1.15-1.33); Lactate - POC 1.07 mmol/L (0.36-0.75); O2 Saturation %Calculated-POC 99.8 % (94-98); PCO2 - POC 42 mmHg (35-48); PO2 - POC 247 mmHg (83-108); Potassium - POC 3.9 mmol/L (3.5-5.1); Sodium - POC 142 mmol/L (136-145); Specimen Type - POC Arterial; pH - POC 7.42 (7.35-7.45)
[2024-12-27 12:26] LABS: ACT+ - POC 112 Seconds (82-134)
[2024-12-27 12:29] LABS: B.E. - POC 2.6 mmol/L; Glucose - POC 134 mg/dl (70-99); HCO3 - POC 27 mmol/L (21-28); Hematocrit - POC 30 % PCV (42-52); Hemodilution- POC No; Hemoglobin Calculated - POC 10.3; Lactate - POC 0.47 mmol/L (0.36-0.75); PCO2 - POC 37 mmHg (35-48); PO2 - POC 424 mmHg (83-108); Potassium - POC 3.8 mmol/L (3.5-5.1); Sodium - POC 141 mmol/L (136-145); Specimen Type - POC Arterial; pH - POC 7.46 (7.35-7.45)
--- NOTE | 2024-12-27 12:37 | PN.DE.MGMTRT ---
Insulin Management
- -
12/27/2024: Diabetes Management Consult
64 year old male who presented with CP and SOB, noted for NSTEMI and MVCAD.
PMH: HTN, CAD s/p stent placement 3 years ago, HTN, h/o ESRD, s/p kidney transplant and T2DM.
Pt is off the floor in the OR for surgery, unable to interview. Information obtained from chart review.
Was taking Metformin 1000 mg BID, Repaglinide 3mg TID and Jardiance 10mg daily, AUTHORIZATION REP. A1C 7.3%, Cr 0.6, eGFR >60
Pt will be managed on Glycemic protocol x48 hrs post-operatively.
Diabetes care plan discussed with CT LATASHA team, pt will be transitioned off insulin infusion to his oral regimen on Monday.
Will followup on Monday
Diabetes History
- -
Type of Diabetes: 2
Pre-Admission Diabetes Regimen
Lab Results
Hemoglobin A1c Cancelled 12/24/24 17:07
Insulin Pump Settings
IP Diabetes Regimen
12/26/24 12/26/24
17:06 22:32
POC Glucose 205 H 193 H
Meal type: Breakfast
Amount consumed: 100%
Patient Education
[2024-12-27] MEDS: DELTASONE PO (12:41)
[2024-12-27] MEDS: MAG-TAB SR PO ×2 (12:41→20:28)
[2024-12-27] MEDS: NEURONTIN PO ×2 (12:41→15:39)
[2024-12-27] MEDS: COREG PO (12:43)
[2024-12-27] MEDS: NOVOLOG FLEXPEN-LOW RESISTANCE SC ×2 (12:43)
[2024-12-27] MEDS: PRANDIN PO ×2 (12:43)
[2024-12-27] MEDS: ASPIR LOW (ENTERIC COATED) PO (12:43)
[2024-12-27] MEDS: VITAMIN D3 (cholecalciferol) PO (12:43)
--- NOTE | 2024-12-27 12:54 | W.IMMPOSTOP ---
Addendum entered and electronically signed by Daron Elkins MD 12/27/24 14:26:
[id number]
Original Note:
Surgical Immed Post Op Note
-
CARDIAC SURGERY OPERATIVE NOTE:
Preoperative Dx:
MVCAD
Postoperative Dx:
Same
Procedures:
1) Median sternotomy
2) Takedown of CHARANJIT (narrow pedicle)
3) Open evaluation of L RA (harvest abandoned)
4) Endoscopic harvest/prep of RLE GSV
5) CABG x 3 (CHARANJIT to LAD, GSV to OM, GSV to RPDA)
Surgeon:
Daron Elkins M.D.
Assistants:
Laure Rivera-Tracey; executive staff assistant throughout; endoscopic harvest/prep of RLE GSV
Laure Gallo-Tracey; open exposure/eval of RA; closure of RLE GSV incisions, epkvdv-[id number]-surm sternotomy closure
Anesthesia:
Tee Draper M.D. and Lorie Guy, C.R.N.A.
Perfusion:
Tracey AmorCAlvaroP.; XC: 69min, CPB: 109min
Findings:
CHARANJIT was very healthy conduit w/ extremely brisk blood flow (ELD 2.75-3.00mm)
GSV was healthy conduit w/ ELD 3.50mm
L RA was very calcified at open wrist exposure site; endoscopic evaluation revealed additional sig calcifications scattered through visualized vessel - harvest abandoned
LAD was visible on the epicardial surface at its apical segment; it's midpoint was identified under approximately 0.25mm of adipose tissue and 2mm of myocardium; vessel was healthy appearing with ELD 2.75mm
OM was visible on the epicardial surface, healthy toney at midpoint anastomosis w/ ELD 2.65mm
RPDA was visible on the epicardial surface, healthy toney at proximal third anastomosis w/ ELD 1.75mm
Excellent flow in all grafts on postoperative transit-time U/S flow probe assessment
Post-ANGEL: LVEF 35-40% postop (preop 25-30%); most improved in mid and basal wall segments. Trace MR. Trace TR. Mild calcified atheroma in distal arch and descending aorta.
Implants:
CT x 4 (B/L pleural, inferior mediastinal, superior mediastinal)
Sternal wires x 7
Sternal 'Extended-square' plate w/ 8 - 14mm screws
Sternal 'Square' plate w/ 4 - 12mm screws
Complications:
None
Transfusions:
None
Condition:
80 sinus (0.2/-0.5); 123/59; 33/21; CVP: 15; CO/CI: 4.5/2.2
GTTS: dobutamine 5, levophed 2, insulin 1, precedex 0.5
Stable/guarded to CVICU
[2024-12-27] MEDS: NOVOLOG FLEXPEN SC ×2 (13:04→15:39)
[2024-12-27] MEDS: TYLENOL PO (13:04)
[2024-12-27 13:37] LABS: Glucose - Point of Care 146 mg/dl (70-99)
[2024-12-27] MEDS: NSS 500 IV (13:39)
[2024-12-27] MEDS: LR 250 ML IV (13:39)
[2024-12-27] MEDS: ANCEF 10 IV ×2 (13:40)
--- NOTE | 2024-12-27 13:44 | W.PN.UPDATE ---
Update Note
Progress Note Update
Corby Ochoa is a 64-year-old male ([id number]) with past medical history significant for coronary disease with prior OM1 stent in 2020, type 2 diabetes, end-stage renal disease status post living donor renal transplant in
2021 (on tacrolimus, CellCept, and prednisone), hypertension and hyperlipidemia, who presented to [place] emergency room on 12/24/2024 with an approximate 3-week history of intermittent exertional dyspnea associated with back and bilateral
underarm pain. R/I for NSTEMI. Heart catheterization reported 3VCAD. Nephrology ywas consulted pre-op and no changes made to immunosupression therapy as Tacrolimus level was therapeutic @ 7.4
IV fluids: 1900
U.O.:� 400
Blood:� none
Wires:�
Infusions: Dobutamine @ 5, Precedex @ 0.5, Insulin
�
NEURO: sedated, pupils +2mm B/L
RESP: #8OT @XXcm> 500/60%/14. Lungs clear B/L. 2 mediastinal (35cc on arrival) and R/L pleural (10cc on arrival) chest tubes to -20cm suction. Sanguineous drainage. No air leak, no crepitus
CV: RRR +S1, S2, no S3, no�rub, no murmur. Aquacell to median sternotomy. RIJ w/[place] locked @ 50cm. PA 21/12; CVP 7; C.O XX/CI XX
ABD: round, soft, no BS
EXT: no edema, +2/4 DP pulses B/L, no femoral bruit, RLE KELLY wrap intact; right radial A-line intact
: Briggs with clear yellow urine
�
A/P: POD #0 s/p ) CABG x 3 (CHARANJIT to LAD, GSV to OM, GSV to RPDA), open evaluation of L RA (harvest abandoned)
ANGEL: EF�25-30% (pre), improved to 35-40% (post) on Dobutamine
- wean and extubate
- slow wean of Dobutamine
- keep SBP >100 and <130
# CAD/NSTEMI
- will initiate ASA/Plavix, statin, beta-gordon (Coreg)
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
- ASA, statin
# Acute systolic heart failure (HFrEF)
- improved s/p CABG
- resume Jardiance, losartan when taking solids and BP stable
�
# acute surgical blood loss anemia-expected
- trend CBC
�
# T2DM (A1C 7.3)
- insulin infusion x 48h
- lantus 10u 2 hours prior to discontinuing insulin infusion, then resume home regime MFM, Prandin per DMNP
- resume Losartan for renoprotective effect as BP permits
�
# Diabetic nephropathy s/p renal transplant
- continue Tacrolimus, Cellcept, prednisone
- nephrology following
- tac level with creat bump
[2024-12-27] MEDS: CARDENE 200 IV (13:46)
[2024-12-27 13:47] LABS: Hematocrit 33.2 % (39.0-52.0); Platelet Count 191 10^3/uL (130-400)
--- NOTE | 2024-12-27 13:47 | W.PN.CD ---
Today's Communication / Plan
-
Routine postop care
wean levophed and dobutamine as able
Impression / Plan
-
64 year old male with PMH CAD s/p stent placement 3 years ago, HTN, hx kidney transplant who presented with CP and is now seen to have MVD now s/p CABG.
NSTEMI/CAD:
-troponin as high as 1.8
-echo below
-Cath 12/24/24: Dominance: Right. LAD: Large vessel giving rise to 3 moderate caliber diagonal branches. There is a focal severe 95% stenosis in the mid LAD and otherwise mild nonobstructive disease. LCx: 80% stenosis in the ostial circumflex.
There is a widely patent stent in the proximal OM1 branch extending proximally into the proximal circumflex. RCA: serial high grade stenoses in the proximal to mid RCA, high grade ostial disease of the RPDA, moderate disease in the RPAV leading into
the RPL branches. There is competitive flow in the RPL branches from L-R collaterals.
-CT surgery s/p CABG with CHARANJIT to LAD, GSV to OM, and GSV to RPDA
-LDL 75, now on crestor
- currently on levophed and dobutamine wean as able
HTN:
-BP stable
-continue BB
Hx renal transplant:
-on anti rejection meds
-nephrology is consulted to assist in perioperative managment
DM:
-hgbA1C 7.3
-management per primary
Subjective: Intubated and sedated
TTE 12/26/2024
Left ventricle is mildly dilated. Severely reduced left ventricular systolic
function.
Left ventricular ejection fraction is 30% by volumetric assessment.
Lateral toney are best preserved, LAD distribution most severely hypokinetic.
Stage II diastolic dysfunction suggestive of abnormal relaxation and increased
filling pressures.
No significant valvular disease.
No prior study available for comparison.
Physical Exam
Vital Signs/Labs
Vital Signs
Temp Pulse Resp BP Pulse Ox
97.2 F 83 14 154/82 98
12/27/24 13:38 12/27/24 13:34 12/27/24 13:34 12/27/24 06:01 12/27/24 13:37
12/26/24 12/27/24 12/28/24
06:59 06:59 06:59
Actual Weight 180 lb 15.992 oz
PT 14.0 Sec (11.4-14.6) 12/25/24 13:06
INR 1.03 12/25/24 13:06
APTT 79.1 Sec (23.4-35.0) H 12/27/24 06:26
Triglycerides 105 mg/dl (10-149) 12/25/24 04:04
LDL Cholesterol, Calc 75 mg/dl 12/25/24 04:04
VLDL Cholesterol, Calc 21 mg/dl (0-30) 12/25/24 04:04
HDL Cholesterol 26 mg/dl 12/25/24 04:04
12/24/24
13:40
Amm-K-Lrsqyxozhxt Pept 7400
LAB Results
12/24/24 12/24/24 12/25/24
13:40 18:39 00:00
Troponin I 0.883 H* 1.290 H* D Cancelled
12/25/24 12/25/24
04:04 13:06
Troponin I 1.820 H* 1.680 H*
Physical Exam
Constitutional: No acute distress
EENT: Other (ET tube in place)
Cardiovascular: Rhythm & rate is regular, Pedal edema is absent and Rub present
Respiratory: Other (intubated )
GI: Soft
Neuro/Psych: Other (intubated and sedatead )
Data Reviewed
-
Date of Service: December 27, 2024
Medical Decision Making: Reviewed Test Results
EKG: Tracing Personally Visualized and interpreted (sr)
Echo: Report Reviewed by me
Labs: Labs Reviewed by me
[2024-12-27 13:52] LABS: B.E. 1.2 mmol/L; Ionized Calcium 1.23 mMOL/L (1.15-1.33); O2 Saturation % 99.8 % (94-98); PCO2 41 mmHg (35-48); PO2 102 mmHg (83-108); Potassium 3.8 mMOL/L (3.5-5.1); Sodium 138 mMOL/L (136-145); pH 7.41 (7.35-7.45)
--- NOTE | 2024-12-27 13:54 | CON.INTV ---
Consultation
Consultation Request
Date/Time Consultation Requested: 12/27/24
Date/Time Consultation Performed: 12/27/24
Performing Provider: William
Reason for Consultation: CVICU
Medical History
-
History of Present Illness:
Patient is a 64-year-old male with past history of CAD, diabetes, end-stage renal disease status post kidney transplant on chronic immunosuppression, originally presented to ER with shortness of breath, dull pain under both arms and mid back for
the past 2 days. He was ruled in for NSTEMI with peak troponin of 1.8. Underwent cardiac catheterization on 12/24/2024 demonstrating multivessel CAD. CTS evaluation for CABG obtained on this admission. Underwent CABG x 3 on 12/27/2024,
postoperatively transferred to CVICU for further management.
Past Medical History
Past Medical History: Other
Social History
Tobacco: Non-smoker
Alcohol: None
Drug: None
Family History
Family History: Reviewed & Not Pertinent
Allergies / Home Medications
Allergies
Allergy/AdvReac Type Severity Reaction Status Date / Time
No Known Allergies Allergy Verified 12/24/24 13:37
Home Medications
�Medication �Instructions �Recorded �Confirmed �Last Taken �Type
carvedilol 3.125 mg tablet 6.25 mg PO Q12H 03/13/23 12/24/24 12/24/24 History
metformin 500 mg tablet 1,000 mg PO BID 03/13/23 12/24/24 12/24/24 History
mycophenolate mofetil 250 mg 500 mg PO BID 03/13/23 12/24/24 12/24/24 History
capsule
prednisone 5 mg tablet 5 mg PO DAILY 03/13/23 12/24/24 12/24/24 History
repaglinide 1 mg tablet 3 mg PO TID 03/13/23 12/24/24 12/24/24 History
rosuvastatin 5 mg tablet 5 mg PO QPM 03/13/23 12/24/24 12/23/24 History
tacrolimus 0.75 mg tablet,extended 1.5 mg PO DAILY 03/13/23 12/24/24 12/24/24 History
release 24 hr
tacrolimus 1 mg capsule,extended 1 mg PO DAILY 03/13/23 12/24/24 12/24/24 History
release 24 hr
aspirin 81 mg tablet,delayed 81 mg PO DAILY 12/24/24 12/24/24 12/24/24 History
release
cholecalciferol (vitamin D3) 25 25 mcg PO NOON 12/24/24 12/24/24 12/24/24 History
mcg (1,000 unit) tablet (Vitamin
D3)
empagliflozin 10 mg tablet 10 mg PO DAILY 12/24/24 12/24/24 12/24/24 History
(Jardiance)
losartan 25 mg tablet 25 mg PO DAILY 12/24/24 12/24/24 12/24/24 History
magnesium oxide 400 mg PO BID 12/24/24 12/24/24 12/24/24 History
Review of Systems
-
Unable to Obtain full review of systems at this time due to: Patient Intubation
Vitals / Labs / Diagnostic Testing
Vital Signs
Temp Pulse Resp BP Pulse Ox
97.2 F 83 14 154/82 98
12/27/24 13:38 12/27/24 13:34 12/27/24 13:34 12/27/24 06:01 12/27/24 13:37
Lab Data
12/27/24 13:33
Laboratory Results
12/26/24 12/27/24
16:23 06:26
APTT 101.3 H 79.1 H
Microbiology
12/24/24 13:40 Nasal Swab Influenza Types A & B (SARAH) - Final
Negative for Influenza A & B, NAAT
Negative results must be combined with clinical observations
and patient history.
Nucleic Acid Amplification test (NAAT)performed on the
[facility] platform.
Diagnostic Testing:
Physical Exam
-
HEENT: Normocephalic, Anicteric and Moist Mucous Membranes
Cardiovascular: S1/S2 and Regular Rhythm
Respiratory: Clear, Non-Labored Respirations and Other (ETT/chest tubes)
GI: Soft, Non Distended and Non Tender
Neurology: Other (sedated/intubated)
Skin: Warm, Dry and Good Color
General: Comfortable and Other (NAD)
Assessment
-
Patient is a 64-year-old male with past history of CAD, diabetes, end-stage renal disease status post kidney transplant on chronic immunosuppression, originally presented to ER with shortness of breath, dull pain under both arms and mid back for
the past 2 days. He was ruled in for NSTEMI with peak troponin of 1.8. Underwent cardiac catheterization on 12/24/2024 demonstrating multivessel CAD. CTS evaluation for CABG obtained on this admission. Underwent CABG x 3 on 12/27/2024,
postoperatively transferred to CVICU for further management.
MVCAD s/p CAB x 3 12/27/24
Perioperative mechanical ventilation
ICM EF 25-30%
NSTEMI
Acute HFrEF exacerbation, proBNP 7400
Conditions present prior to admission
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
ESRD presumably DM/hypertension
CAD with MARI to OM1 January 2021
Nephrolithiasis
Hypertension, multidrug
Hyperlipidemia
Cystoscopy with stone extraction
Hemodialysis with right chest wall CVC x 8 months in 2020
Mohs, multiple
Cholecystectomy 2014
Plan
S/p CAB x 3 POD #0
Titrate off pressors per protocol
ECHO reviewed with low function--new presumed ICM
PA catheter readings reviewed
Management of chest tubes per primary service
Intubated/sedated, initiate SAT when able
Pain control
RASS goal of 0 to -1
Intubated for procedure, SBT trial when patient able to spontaneously breath
Current vent settings reviewed
ABG(s) reviewed/adequate
CXR with no obvious opacities/infiltrates, low lung volumes, ETT in good position, lines/tubes in place
CT Chest with effusions noted -- IV diuresis
Extubate per protocol
Maintain supplement oxygen as needed
No prior history of pulmonary disease, nonsmoker
No Prior PFTs for review
Can add nebulizers if needed
Aspiration precautions
Encouraged incentive spirometry, OOB/ambulation/early mobility
Advance diet as tolerated following extubation
GI prophylaxis if indicated for mechanical ventilation >48 hours
ESRD s/p transplant, resumed on home meds
Monitor critical I/O's
Briggs/chest tube output
Hb/platelets postoperatively stable
Trend CBC for now
Can transfuse if indicated for Hb <7, plt <50 in surgical patients
DVT prophylaxis including SCDs
Insulin protocol initiated and ongoing
Transition to SQ/off as indicated per team
We will follow
Diagnostic Data
Chest X-Ray: 12/27/24- No acute disease of the chest.
CT Scan: CHEST 12/26/24- Small to moderate pleural effusion with minor adjacent compressive atelectasis. Incidental mild splenomegaly, left adrenal myelolipoma, and renal cortical atrophy.
Echo: 12/27/24- Overall LVEF is approximately 25-30%. Severe apical anterior and septal hypokinesis. Moderate global hypokinesis in the mid/basal wall segments as well. Left ventricle is moderately dilated. Mild concentric left ventricular
hypertrophy. Stage I Diastolic dysfunction. Moderately dilated left atrium. Trace mitral regurgitation. Moderate MV annular calcification. Mild AV annular calcification noted. Mild calcified sessile atheroma seen in the descending aorta and
distal arch.
PFT's:
Reports and relevant images were personally reviewed.
Critical Care time 51 mins -- The patient is admitted for acute critical illness for the treatment of vital organ failure and/or prevention of further life-threatening conditions. Total care includes time spent in review of history, physical exam,
medications, hemodynamic/ventilator parameters, laboratory data, imaging and discussion with house staff, pharmacy, respiratory therapy, printed circuit layout taper, and nursing.
[2024-12-27] MEDS: DILAUDID 0.25 MG IV ×2 (13:55→20:29)
[2024-12-27 13:58] LABS: Blood Urea Nitrogen 15 mg/dl (9-20); Estimated Creatinine Clearance 112 ml/min; Glucose 137 mg/dl (70-99); Magnesium 2.7 mg/dl (1.6-2.3)
[2024-12-27 13:59] LABS: APTT 29.7 Sec (23.4-35.0); INR 1.42; PT 17.6 Sec (11.4-14.6)
[2024-12-27 14:06] LABS: Glucose - Point of Care 127 mg/dl (70-99)
[2024-12-27] MEDS: KCL 50 IV ×2 (14:12→15:18)
[2024-12-27 14:41] VITALS: BP 105/67
[2024-12-27 15:01] LABS: Glucose - Point of Care 112 mg/dl (70-99)
--- NOTE | 2024-12-27 15:15 | W.PN.NEPH.PH ---
Today's Communication / Plan
-
follow BMP
Assessment/Plan
-
64-year-old male with past medical history significant for hypertension, CAD, NIDDM, and hx ESRD s/p kidney transplant who presented to [facility] ED for evaluation of increased exertional dyspnea over the past few weeks
Renal consult for transplant management and perioperative
Impression.
Renal transplant 2021 living related donor.
Coronary artery disease three-vessel requiring CABG
Hypertension.
Diabetes.
Plan.
follow BMP
hopefully extubate soon
continue IS regimen for transplant, if cannot get po meds will need to use HC IV
-
-
Date of Service: December 27, 2024
CC / HPI / ROS
-
Chief Complaint:
Weakness with shortness of breath
History of Present Illness:
s/p CABGx3 12/27
BP stable, off pressors
on vent in CVICU
dunn in, nonoliguric
Review of Systems:
intubated/sedated
Labs
-
Labs:
WBC 6.7 10^3/uL (4.8-10.8) 12/26/24 02:12
RBC 4.74 10^6/uL (4.70-6.10) 12/26/24 02:12
Sodium 136 mmol/L (135-145) 12/26/24 02:12
Potassium 3.8 mmol/L (3.5-5.1) 12/26/24 02:12
Chloride 103 mmol/L (98-107) 12/26/24 02:12
Carbon Dioxide 26 mmol/L (22-30) 12/26/24 02:12
BUN 15 mg/dl (9-20) 12/27/24 13:33
Creatinine 0.7 mg/dL (0.7-1.3) 12/27/24 13:33
eGFR > 60.00 12/26/24 02:12
Glucose 137 mg/dl (70-99) H 12/27/24 13:33
Calcium 8.7 mg/dl (8.4-10.2) 12/26/24 02:12
Apk-M-Uxasmjmdyys Pept 7400 pg/ml 12/24/24 13:40
Albumin 3.5 g/dl (3.5-5.0) 12/26/24 02:12
Physical Exam
-
Vital Signs:
Vital Signs
Temp Pulse Resp BP Pulse Ox
98.5 F 92 14 105/67 98
12/27/24 15:00 12/27/24 15:02 12/27/24 15:02 12/27/24 14:41 12/27/24 15:05
Cardiovascular:: Regular rate and rhythm
Respiratory:: Bilateral: Coarse
Lung Excursion:: Normal
Abdomen:: Nontender and Soft
Bowel Sounds:: None
Extremity Edema:: None: Bilateral:
--- NOTE | 2024-12-27 15:22 | PTCARENOTE ---
Patient received from CVOR s/p CABG x 3. LIJ Cordis/[place] catheter, R radial arterial lines present - leveled, flushed, and calibrated w/good waveforms returned. Mediastinal chest tubes x 2 Y-connected to one pleurevac, L and R pleural chest
tubes to separate pleurevac - both placed to -20cm suction w/no air leaks noted. Briggs catheter to gravity. All procedural sites stable. Labs drawn, EKG performed, pcxr obtained. to bedside, updated. See work list for full assessment,
interventions performed, and intravenous infusions and titrations.
[2024-12-27] MEDS: NOVOLIN R INSULIN INFUSION 100 IV (15:30)
[2024-12-27] MEDS: PACERONE PO (15:39)
[2024-12-27 15:41] LABS: B.E. -0.7 mmol/L; HCO3 24.9 mmol/L (21-28); O2 Saturation % 99.9 % (94-98); PCO2 44 mmHg (35-48); PO2 153 mmHg (83-108); pH 7.36 (7.35-7.45)
--- NOTE | 2024-12-27 16:00 | PTCARENOTE ---
Patient displayed overbreathing ventilator settings, CPAP wean initiated. No apnea noted, good TV obtained. ABG results conveyed to LATASHA Carmella - patient extubated to 6lnc w/out incident, SaO2 @ 100%.
[2024-12-27 16:02] LABS: Glucose - Point of Care 122 mg/dl (70-99)
[2024-12-27] MEDS: OFIRMEV 100 IV (16:32)
[2024-12-27] MEDS: LOW STRENGTH ASPIRIN 81 MG PO (16:58)
[2024-12-27 17:02] LABS: Glucose - Point of Care 104 mg/dl (70-99)
[2024-12-27 17:41] LABS: Hematocrit 34.1 % (39.0-52.0); Hemoglobin 11.2 g/dL (13.0-18.0); Platelet Count 207 10^3/uL (130-400)
[2024-12-27] MEDS: CRESTOR PO (17:48)
[2024-12-27 18:03] LABS: Glucose - Point of Care 99 mg/dl (70-99)
[2024-12-27] MEDS: ANCEF 5 IV (18:23)
[2024-12-27 18:35] VITALS: BP 97/62
[2024-12-27 20:05] VITALS: BP 101/55
[2024-12-27 20:15] LABS: Glucose - Point of Care 113 mg/dl (70-99)
[2024-12-27] MEDS: SENOKOT-S 1 TABLET PO (20:21)
--- NOTE | 2024-12-27 21:00 | PTCARENOTE ---
Assumed care of pt from dayshift RN. Walking rounds completed. Pt AAOx3. POLANCO and following commands appropriately. Pt is SR w/ occasional PVC's on the tele monitor. HR 70-80s. +Rub. BPs 110s-120s/40s. PAPs 12-20/5-10. CVP reading negative despite
flushing and re-leveling. CI>2. Weak DP pulses. B/L radial pulses palpable. Pt 100% on 2 L NC. Lung sounds diminished B/L. Mediastinal CTx2 and R/L pleural to -20 suction, no air-leak/tidaling noted at this time, and output WNL. Deep breathing and
IS encouraged. Abdomen soft/nontender. Hypoactive BS. Briggs catheter C/D/I and draining yellow urine >30ml/hr. Left IJ cordis w/ SWAN intact. Right radial arterial line intact. All lines leveled, zeroed, and flushed. PIVx1 intact. All surgical sites
stable. Dobutamine and levo infusing as ordered. Glycemic protocol followed. Pain medication administered as needed - see MAR. See worklist for full nursing assessment and interventions. Call may within reach.
[2024-12-27] MEDS: TYLENOL 1000 MG PO (22:06)
[2024-12-27] MEDS: PACERONE 200 MG PO (22:06)
[2024-12-27] MEDS: NEURONTIN 100 MG PO (22:06)
[2024-12-27 22:11] LABS: Glucose - Point of Care 119 mg/dl (70-99)
[2024-12-28] VITALS (11 sets, daily range): BP systolic 98–117; BP diastolic 41–62; PULSE 75; O2SAT 97–98; BMI 27.0
[2024-12-28] MEDS: LR 250 ML IV (00:04)
[2024-12-28] MEDS: DILAUDID 0.25 MG IV (00:09)
[2024-12-28 00:13] LABS: Glucose - Point of Care 121 mg/dl (70-99)
--- NOTE | 2024-12-28 00:28 | PTCARENOTE ---
Pt reassessed. Pt is SR on the tele monitor w/ occasional PVC's. HR low 80s. BP 120s/40s. Levo infusing per protocol. PAP currently 20/7. CVP 3.
CI 2.96. Pt remains on 2 L NC. POX 100%. CTx4 assessment unchanged. Briggs catheter C/D/I. UO slightly decreased. 250 LR per CTPA. Left swan and right wrist arterial line maintained. All lines leveled, zeroed, and flushed. All surgical sites stable.
Glycemic protocol followed. Dobutamine weaned per CTPA. See MAR for pain medication administration. Call may within reach.
[2024-12-28 02:11] LABS: Glucose - Point of Care 120 mg/dl (70-99)
[2024-12-28] MEDS: FLEXERIL 5 MG PO ×2 (02:12→15:45)
[2024-12-28] MEDS: ALBUMIN 5% 250 IV ×2 (03:08→22:02)
[2024-12-28] MEDS: ANCEF 5 IV ×2 (03:09→12:00)
[2024-12-28] MEDS: DOBUTREX 500 MG 250 IV (04:05)
[2024-12-28 04:14] LABS: Glucose - Point of Care 115 mg/dl (70-99)
--- NOTE | 2024-12-28 04:21 | PTCARENOTE ---
Pt reassessed. No acute change in assessment. Pt SR w/ occasional PVC's on the tele monitor. HR 70-80s. BP 110s-130s/50s. CVP ~ 6. PAPs 20s/10s. CI~3. Pt 100% on 2 L NC. CTx4 assessment unchanged. Output appropriate. Briggs catheter intact and
draining yellow urine ~25ml/hr. CTPA aware. 250 Albumin - see MAR. All surgical site stable. Left swan and right radial a-line leveled, zeroed, and flushed. EKG completed. Labs drawn and sent. Glycemic protocol followed. Dobutamine infusing. On/off
Levo per protocol. Pt repositioned in bed. Call may within reach.
[2024-12-28 04:22] LABS: Hematocrit 30.7 % (39.0-52.0); Hemoglobin 9.9 g/dL (13.0-18.0); Mean Corp Hgb Conc. 32.2 g/dL (33.0-37.0); Mean Corpuscular Hgb 26.5 pg (27.0-31.0); Mean Corpuscular Volume 82.3 fL (80.0-94.0); Mean Platelet Volume 10.1 fL (7.4-10.4); Platelet Count 214 10^3/uL (130-400); Red Blood Cell Count 3.73 10^6/uL (4.70-6.10); White Blood Cell Count 10.9 10^3/uL (4.8-10.8)
--- NOTE | 2024-12-28 04:35 | W.PN.CT ---
Addendum entered and electronically signed by Daron Elkins MD 12/28/24 09:26:
I saw and examined the patient.
The PA's note was reviewed and I agree with the note.
Comment:
POD#1 s/p CABG x 3
Doing well.
Wean dobutamine for CI < 2.0
Maintain CTs today
Creat 0.8, UO: 25-30/hr overnight, dunn removed this AM - continue to follow UO; immunosuppresion for KTxp
OOB/IS/ambulate later
Original Note:
Today's Communication / Plan
-
-pod #1
-no issues overnght
-CI 3.13, CO 6.29. Drips: Dobut 3.5, Levo off, Insulin
-CT output: 2 meds 125/265, 2 pleur 50/160 in 12/24 hrs
-wean off Dobut and Levo as tolerated
-follow Cr and UO closely (s/p renal transplant)
-on immunosuppressants (Tacrolimus, Cellcept, and Prednisone)
-continue iv Insulin
-d/c insulin
-current meds (ASA, Plavix, Crestor, Lopressor, Amio, Protonix, IS meds)
-encourage IS, OOB
Assessment / Plan
-
- mv-CAD - s/p CABG x 3 (CHARANJIT to LAD, GSV to OM, GSV to RPDA) by Dr. Elkins on 12/27/24, pod #1
- Post-ANGEL: LVEF 35-40% postop (preop 25-30%); most improved in mid and basal wall segments. Trace MR. Trace TR. Mild calcified atheroma in distal arch and descending aorta.
- NSTEMI/CAD, hx of MARI to OM1 01/2021
- ICM, LVEF 30% preop
- HTN/ HLD
- DM II, HgA1c 7.3
- ESRD, s/p renal transplant 11/11/21 (living related donor) - on Tacrolimus, Cellcept, and Prednisone
- Non-smoker
- 50-60% LICA
- Multiple Mohs
- Cholecystectomy 2015
- Acute postop blood loss anemia- stable without transfusion
- Acute postop atelectasis
- Acute postop hypovolemia with postop hypervolemia
- Suspected acute postop pericarditis/+rub
Discussed patient care with: Nursing and Care Team
Subjective
-
Date of Service: December 28, 2024
Objective Data
-
PT 17.6 Sec (11.4-14.6) H 12/27/24 13:33
INR 1.42 12/27/24 13:33
APTT 29.7 Sec (23.4-35.0) 12/27/24 13:33
Vital Signs
Vital Signs
Temp Pulse Resp BP Pulse Ox
98.8 F 83 20 114/57 100
12/28/24 02:00 12/28/24 02:00 12/28/24 02:00 12/28/24 00:00 12/28/24 02:00
CT Intake/Output/Weight
12/27/24 12/27/24 12/28/24
06:59 18:59 06:59
Intake Total 800 / 800 532.5 / 961.9 429.4 / 961.9
Output Total 775 / 1220 445 / 1220
Balance 800 / 800 -242.5 / -258.1 -15.6 / -258.1
SaO2: 100
Physical Exam
-
General: Awake
Cardiovascular: Regular rate & rhythm, No Murmurs and Rub (loud)
Respiratory: Decreased Breath Sounds
Sternum: Stable
Incision: Clean, Dry and Dressing Intact
Extremities: No Edema
Abdomen: soft, nontender, decreased + bowel sounds, nondistended
Data Reviewed
-
Lab Results: Results Reviewed
Medications: Active Meds Reviewed
Chest X-Ray: Report Reviewed and Image Reviewed
ECG: Report Reviewed and Image Reviewed
[2024-12-28 05:06] LABS: Blood Urea Nitrogen 17 mg/dl (9-20); Calcium 7.9 mg/dl (8.4-10.2); Carbon Dioxide 25 mmol/L (22-30); Chloride 107 mmol/L (98-107); Estimated Creatinine Clearance 98 ml/min; Glucose 108 mg/dl (70-99); Magnesium 2.1 mg/dl (1.6-2.3); Potassium 4.4 mmol/L (3.5-5.1); Sodium 137 mmol/L (135-145); eGFR > 60.00
[2024-12-28 05:07] LABS: Glucose - Point of Care 94 mg/dl (70-99)
[2024-12-28 06:21] LABS: Glucose - Point of Care 92 mg/dl (70-99)
[2024-12-28] MEDS: TYLENOL 1000 MG PO ×3 (06:23→21:09)
[2024-12-28] MEDS: ENVARSUS XR 1.5 MG PO (06:23)
[2024-12-28] MEDS: CELLCEPT 500 MG PO ×2 (06:24→18:31)
[2024-12-28] MEDS: ENVARSUS XR 1 MG PO (06:24)
[2024-12-28 07:15] LABS: Glucose - Point of Care 91 mg/dl (70-99)
--- NOTE | 2024-12-28 08:00 | PTCARENOTE ---
Assumed care of pt from previous RN. Walking rounds completed. Resting in bed at time of assessment. AAOx3. SR on monitor. HR 70s. +Rub. CI>2. with 3.5 mcg dobut infusing. B/L radial pulses palpable. Pt 100% on 2 L NC. weaned to RA. Lung sounds
diminished B/L. Mediastinal CTx2 and R/L pleural to -20 suction. IS 750. Briggs catheter C/D/I and draining yellow urine orders to d/c this am. All lines leveled, zeroed, and flushed. PIVx1 intact. All surgical sites stable. insuling per Glycemic
protocol followed. will continue to monitor.
--- NOTE | 2024-12-28 08:20 | W.PN.INTV ---
Today's Communication / Plan
Recommendations
Up OOB as tolerated
Encourage incentive spirometer use
Pain control
Removal of PAC as per primary team
Management of chest tubes per CT surgery team
Continue insulin drip and dobutamine gtt --> wean off per protocol
Heat Treat Inspector services will continue to follow along while patient remains in the CVICU
Assessment
-
Patient is a 64-year-old male with past history of CAD, diabetes, end-stage renal disease status post kidney transplant on chronic immunosuppression, originally presented to ER with shortness of breath, dull pain under both arms and mid back for
the past 2 days. He was ruled in for NSTEMI with peak troponin of 1.8. Underwent cardiac catheterization on 12/24/2024 demonstrating multivessel CAD. CTS evaluation for CABG obtained on this admission. Underwent CABG x 3 on 12/27/2024,
postoperatively transferred to CVICU for further management.
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
Perioperative mechanical ventilation
ICM EF 25-30%
NSTEMI
Acute HFrEF exacerbation, proBNP 7400
Conditions present prior to admission
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
ESRD presumably DM/hypertension
CAD with MARI to OM1 January 2021
Nephrolithiasis
Hypertension, multidrug
Hyperlipidemia
Cystoscopy with stone extraction
Hemodialysis with right chest wall CVC x 8 months in 2020
Mohs, multiple
Cholecystectomy 2014
Plan
S/p CAB x 3 POD #1
Titrate off pressors per protocol
ECHO reviewed with low function--new presumed ICM
PA catheter readings reviewed
Management of chest tubes per primary service
Continue DAPT with ASA and plavix
Patient successfully extubated on 12/27/2024 and is now on 2 L/min nasal cannula
Maintain SpO2 >90%
Pain control
CT Chest from 12/26/2024 with r-sided pleural effusion noted -- IV diuresis
No prior history of pulmonary disease, nonsmoker
No Prior PFTs for review
Can add nebulizers if needed
Aspiration precautions
Encouraged incentive spirometry, OOB/ambulation/early mobility
Continue ADA
GI prophylaxis: PPI
ESRD s/p transplant, resumed on home meds
Monitor critical I/O
Follow output from [facility]/chest tube
Hb/platelets postoperatively stable
Trend CBC
Can transfuse if indicated for Hb <7, plt <50 in surgical patients
DVT prophylaxis including SCDs
Insulin protocol initiated and ongoing
Transition to SQ/off as indicated per team
We will follow
Diagnostic Data
Chest X-Ray: 12/27/24- No acute disease of the chest.
CT Scan: CHEST 12/26/24- Small to moderate pleural effusion with minor adjacent compressive atelectasis. Incidental mild splenomegaly, left adrenal myelolipoma, and renal cortical atrophy.
Echo: 12/27/24- Overall LVEF is approximately 25-30%. Severe apical anterior and septal hypokinesis. Moderate global hypokinesis in the mid/basal wall segments as well. Left ventricle is moderately dilated. Mild concentric left ventricular
hypertrophy. Stage I Diastolic dysfunction. Moderately dilated left atrium. Trace mitral regurgitation. Moderate MV annular calcification. Mild AV annular calcification noted. Mild calcified sessile atheroma seen in the descending aorta and
distal arch.
Reports and relevant images were personally reviewed.
Critical care statement: A total of 44 minutes of critical care time was provided for this patient today. This includes management of unstable vital signs, evaluation of the patient at bedside, reviewing the patient's pertinent medical records
including radiographs, microbiology, laboratory evaluations, and discussion with primary team, consultants, pharmacy, nutrition, physical therapy, case management, charge nurse, critical care nursing, and respiratory therapy.
Subjective Dataa
Subjective Data
Date of Service:
Date of Service: December 28, 2024
Chief Complaint: Heat Treat Inspector Follow Up
Subjective:
Patient seen and evaluated today at bedside. He feels well, just tired. No shortness of breath, cough or chest pain. Currently on insulin drip at 0.3units/hr and dobutamine at 1.5mcg/kg/min. Chest tubes x [address] He is on 2 L/min saturating
98%. Heart rate 73, BP 113/44 via A-line, BP 98/56 via NIBP, PAP: 38/15 and CO/CI: 6.28/3.13.
Review of Systems
General: Other (Negative unless mentioned above)
Objective Data
Data Reviewed
Vital Signs / I&O / Oxygen:
Vital Signs
Temp Pulse Resp BP Pulse Ox
98.9 F 81 18 136/50 100
12/28/24 08:00 12/28/24 09:13 12/28/24 09:10 12/28/24 09:13 12/28/24 08:00
Intake and Output
12/27/24 12/28/24 12/29/24
06:59 06:59 06:59
Intake Total 800 / 800 1163.9 / 1193.2 115.4 / 115.4
Output Total 1380 / 1410 115 / 115
Balance 800 / 800 -216.1 / -216.8 0.4 / 0.4
SaO2 [CPAP] 98
SaO2 [SIMV] 98
SaO2 100
Nasal Cannula flow liters per 2
minute
Physical Exam
General: Respiratory Distress (negative), Comfortable, Chills (negative) and Sweats (negative)
HEENT: Normocephalic, Anicteric and Other (PAC inright IJ)
Cardiovascular: S1-S2, Murmur ([place] best at RUSB) and Peripheral Edema (negative)
Respiratory: Wheeze (negative), Crackles (negative), Rhonchi (negative) and Accessory Resp Muscle Use (negative)
GI: Soft, Non Distended, Non Tender and Normal Bowel Sounds
Neurology: AO x 3 and Tremors (negative)
Skin: Warm, Dry, Cyanosis (negative) and Jaundice (negative)
Labs/Micro/Reports
Lab Data
12/28/24 04:14
12/28/24 04:14
Laboratory Results
12/27/24 12/27/24
13:33 15:34
PT 17.6 H
INR 1.42
APTT 29.7
pH 7.41 7.36
pCO2 41 44
pO2 102 153 H
HCO3 26.0 24.9
O2 Delivery Level Fio2 40%
[2024-12-28] MEDS: NOVOLOG FLEXPEN SC ×2 (08:58→12:31)
[2024-12-28] MEDS: LOPRESSOR 12.5 MG PO (09:13)
[2024-12-28] MEDS: MAGNESIUM OXIDE 500 MG PO ×2 (09:13→20:19)
[2024-12-28] MEDS: PROTONIX 40 MG PO (09:13)
[2024-12-28] MEDS: LOW STRENGTH ASPIRIN 81 MG PO (09:14)
[2024-12-28] MEDS: SENOKOT-S 1 TABLET PO ×2 (09:14→20:19)
[2024-12-28] MEDS: NEURONTIN 100 MG PO ×3 (09:14→21:10)
[2024-12-28] MEDS: PLAVIX 75 MG PO (09:15)
[2024-12-28] MEDS: DELTASONE 5 MG PO (09:16)
[2024-12-28] MEDS: PACERONE 200 MG PO ×3 (09:16→21:09)
[2024-12-28] MEDS: BACTROBAN 2% OINTMENT 1 APPLIC NASAL ×2 (09:18→20:19)
[2024-12-28] MEDS: NSS IV (09:18)
[2024-12-28] MEDS: LIDOCAINE 4% PATCH TOPICAL (09:21)
[2024-12-28 09:26] LABS: Glucose - Point of Care 106 mg/dl (70-99)
--- NOTE | 2024-12-28 10:09 | W.PN.ANS.POP ---
Anesthesia Post Operative
- Anesthesia Post Op Note
Vital Signs Stable-See Nursing Note: Yes
Airway Patent: Yes
Adequate Pain Control: Yes
Change in Mental Status: No
Current Postoperative Nausea & Vomiting: No
Anesthesia Complications: No
General Anesthetic Recall: No
Unplanned Admission: No
Post Op Hydration Adequate: Yes
[2024-12-28 12:07] LABS: Glucose - Point of Care 81 mg/dl (70-99)
--- NOTE | 2024-12-28 12:31 | W.PN.CD ---
Today's Communication / Plan
-
Wean inotropes as able cont supportive care
Impression / Plan
-
64 year old male with PMH CAD s/p stent placement 3 years ago, HTN, hx kidney transplant who presented with CP and is now seen to have MVD now s/p CABG.
NSTEMI/CAD:
-troponin as high as 1.8
-echo below
-Cath 12/24/24: Dominance: Right. LAD: Large vessel giving rise to 3 moderate caliber diagonal branches. There is a focal severe 95% stenosis in the mid LAD and otherwise mild nonobstructive disease. LCx: 80% stenosis in the ostial circumflex.
There is a widely patent stent in the proximal OM1 branch extending proximally into the proximal circumflex. RCA: serial high grade stenoses in the proximal to mid RCA, high grade ostial disease of the RPDA, moderate disease in the RPAV leading into
the RPL branches. There is competitive flow in the RPL branches from L-R collaterals.
-CT surgery s/p CABG with CHARANJIT to LAD, GSV to OM, and GSV to RPDA
-LDL 75, now on crestor
- currently on levophed and dobutamine wean as able
HTN:
-weaning inotropes
Hx renal transplant:
-on anti rejection meds
-nephrology is consulted
DM:
-hgbA1C 7.3
-management per primary
Subjective: Feeling improved
TTE 12/26/2024
Left ventricle is mildly dilated. Severely reduced left ventricular systolic
function.
Left ventricular ejection fraction is 30% by volumetric assessment.
Lateral toney are best preserved, LAD distribution most severely hypokinetic.
Stage II diastolic dysfunction suggestive of abnormal relaxation and increased
filling pressures.
No significant valvular disease.
No prior study available for comparison.
Physical Exam
Vital Signs/Labs
Vital Signs
Temp Pulse Resp BP Pulse Ox
98.9 F 74 17 98/56 99
12/28/24 08:00 12/28/24 12:00 12/28/24 12:00 12/28/24 12:00 12/28/24 12:00
12/27/24 12/28/24 12/29/24
06:59 06:59 06:59
Actual Weight 180 lb 15.992 oz 188 lb 7.924 oz
12/28/24 04:14
12/28/24 04:14
PT 17.6 Sec (11.4-14.6) H 12/27/24 13:33
INR 1.42 12/27/24 13:33
APTT 29.7 Sec (23.4-35.0) 12/27/24 13:33
Magnesium 2.1 mg/dl (1.6-2.3) 12/28/24 04:14
Triglycerides 105 mg/dl (10-149) 12/25/24 04:04
LDL Cholesterol, Calc 75 mg/dl 12/25/24 04:04
VLDL Cholesterol, Calc 21 mg/dl (0-30) 12/25/24 04:04
HDL Cholesterol 26 mg/dl 12/25/24 04:04
12/24/24
13:40
Gzj-C-Tabokwfjppl Pept 7400
LAB Results
12/25/24
13:06
Troponin I 1.680 H*
Physical Exam
Constitutional: No acute distress and Comfortable
EENT: Anicteric
Cardiovascular: Rhythm & rate is regular and Pedal edema is absent
Respiratory: Other (decreased inspiratory effort )
GI: Soft
Neuro/Psych: AO x 3
Data Reviewed
-
Date of Service: December 28, 2024
Medical Decision Making: Reviewed Test Results
EKG: Tracing Personally Visualized and interpreted (sr)
Echo: Report Reviewed by me
Labs: Labs Reviewed by me
Critical Care Time (in minutes): 31
--- NOTE | 2024-12-28 13:46 | W.PN.NEPH.PH ---
Today's Communication / Plan
-
decrease FK
Assessment/Plan
-
64-year-old male with past medical history significant for hypertension, CAD, NIDDM, and hx ESRD s/p kidney transplant who presented to [facility] ED for evaluation of increased exertional dyspnea over the past few weeks
Renal consult for transplant management and perioperative
Impression.
Renal transplant 2021 living related donor.
Coronary artery disease three-vessel requiring CABG
Hypertension.
Diabetes.
Plan.
follow BMP
FK 7.4, but 2am draw.
repeat level in AM. may need dose adjustement with amiodarone on board
-
-
Date of Service: December 28, 2024
CC / HPI / ROS
-
Chief Complaint:
Weakness with shortness of breath
History of Present Illness:
s/p CABGx3 12/27
BP stable, off pressors
nonoliguric
Cr stable
Review of Systems:
no CP/SOB
Labs
-
Labs:
WBC 10.9 10^3/uL (4.8-10.8) H 12/28/24 04:14
RBC 3.73 10^6/uL (4.70-6.10) L 12/28/24 04:14
Hgb 9.9 g/dL (13.0-18.0) L 12/28/24 04:14
Hct 30.7 % (39.0-52.0) L 12/28/24 04:14
Plt Count 214 10^3/uL (130-400) 12/28/24 04:14
Sodium 137 mmol/L (135-145) 12/28/24 04:14
Potassium 4.4 mmol/L (3.5-5.1) 12/28/24 04:14
Chloride 107 mmol/L (98-107) 12/28/24 04:14
Carbon Dioxide 25 mmol/L (22-30) 12/28/24 04:14
BUN 17 mg/dl (9-20) 12/28/24 04:14
Creatinine 0.8 mg/dL (0.7-1.3) 12/28/24 04:14
eGFR > 60.00 12/28/24 04:14
Glucose 108 mg/dl (70-99) H 12/28/24 04:14
Calcium 7.9 mg/dl (8.4-10.2) L 12/28/24 04:14
Ink-P-Wmjbbskjugv Pept 7400 pg/ml 12/24/24 13:40
Albumin 3.5 g/dl (3.5-5.0) 12/26/24 02:12
Physical Exam
-
Vital Signs:
Vital Signs
Temp Pulse Resp BP Pulse Ox
98.9 F 74 17 98/56 99
12/28/24 08:00 12/28/24 12:00 12/28/24 12:00 12/28/24 12:00 12/28/24 12:00
Cardiovascular:: Regular rate and rhythm
Respiratory:: Bilateral: Coarse
Lung Excursion:: Normal
Abdomen:: Nontender and Soft
Bowel Sounds:: Normal
Extremity Edema:: None: Bilateral:
[2024-12-28 13:53] LABS: Glucose - Point of Care 138 mg/dl (70-99)
[2024-12-28 15:54] LABS: Glucose - Point of Care 160 mg/dl (70-99)
[2024-12-28] MEDS: NOVOLOG FLEXPEN 4 UNITS SC (17:50)
[2024-12-28 17:55] LABS: Glucose - Point of Care 170 mg/dl (70-99)
--- NOTE | 2024-12-28 18:23 | PTCARENOTE ---
dobut weaned off. swan d/c'd. A line remains.
[2024-12-28] MEDS: CRESTOR 40 MG PO (18:31)
[2024-12-28 20:17] LABS: Glucose - Point of Care 158 mg/dl (70-99)
[2024-12-28] MEDS: LOPRESSOR PO (20:19)
[2024-12-28] MEDS: NOVOLIN R INSULIN INFUSION 100 IV (21:10)
--- NOTE | 2024-12-28 21:54 | PTCARENOTE ---
Assumed care of pt from tara RN. Pt AAOx3. Drowsy. Easily arousable. Pt assisted out of the chair and into bed. SR w/ occasional PVC's on the tele monitor. HR 70s. Palpable pulses throughout. Generalized anasarca. BP's 120's/40s. Levo infusing
per protocol. Pt 98% on RA. Lung sounds diminished B/L. Occasional cough. Deep breathing and IS encouraged. Mediastinal CTx2 and R/L pleural CT to -20 suction, no airleak noted at this time, and output WNL. Abdomen soft/nontender. +BS. Pt has not
voided since 1600. Bladder scanned for 65ml. CTNP aware. Albumin ordered. All surgical sites stable. Right radial arterial leveled, zeroed, and flushed. Left IJ cordis intact. Glycemic protocol followed. See worklist for full nursing assessment and
interventions. Call may within reach.
[2024-12-28] MEDS: LEVOPHED 250 IV (22:02)
[2024-12-28 22:13] LABS: Glucose - Point of Care 139 mg/dl (70-99)
[2024-12-28 23:04] LABS: Glucose - Point of Care 91 mg/dl (70-99)
[2024-12-29] VITALS (30 sets, daily range): BP systolic 89–127; BP diastolic 48–98; BMI 27.2
[2024-12-29 00:07] LABS: Glucose - Point of Care 87 mg/dl (70-99)
--- NOTE | 2024-12-29 00:35 | PTCARENOTE ---
Previous assessment unchanged. Pt SR w/ occasional PVC's on the tele monitor. HR 70s. BP stable. 110s-120s/40-60s. Levo infusing per protocol. Pt 98% on RA. CT x4 assessment unchanged. Pt states no urge to void or discomfort. All surgical sites
stable. Glycemic protocol followed. Call may within reach.
[2024-12-29 01:08] LABS: Glucose - Point of Care 116 mg/dl (70-99)
[2024-12-29 02:08] LABS: Glucose - Point of Care 108 mg/dl (70-99)
[2024-12-29 03:15] LABS: Glucose - Point of Care 99 mg/dl (70-99)
--- NOTE | 2024-12-29 03:22 | PTCARENOTE ---
No acute change in assessment. Pt remains SR w/ occasional PVC's on the tele monitor. HR 70s. BP 120s/40s. Levo off ~0200. Pt 98% on RA. CT x4 assessment unchanged. Pt bladder scanned for 233 ml. No urge at this time, and per pt - will attempt to
void when OOB. All surgical sites stable. CBC and BMP drawn and sent - will draw tacrolimus level later in AM. Glycemic protocol followed. Call may within reach.
[2024-12-29 03:28] LABS: Hematocrit 28.2 % (39.0-52.0); Hemoglobin 9.1 g/dL (13.0-18.0); Mean Corp Hgb Conc. 32.3 g/dL (33.0-37.0); Mean Corpuscular Hgb 26.6 pg (27.0-31.0); Mean Corpuscular Volume 82.5 fL (80.0-94.0); Mean Platelet Volume 9.7 fL (7.4-10.4); Platelet Count 174 10^3/uL (130-400); Red Blood Cell Count 3.42 10^6/uL (4.70-6.10); Red Cell Dist. Width 14.5 % (11.5-14.5); White Blood Cell Count 10.3 10^3/uL (4.8-10.8)
[2024-12-29 03:55] LABS: Blood Urea Nitrogen 25 mg/dl (9-20); Calcium 8.3 mg/dl (8.4-10.2); Carbon Dioxide 26 mmol/L (22-30); Chloride 105 mmol/L (98-107); Estimated Creatinine Clearance 87 ml/min; Glucose 94 mg/dl (70-99); Magnesium 2.3 mg/dl (1.6-2.3); Potassium 4.1 mmol/L (3.5-5.1); Sodium 135 mmol/L (135-145); eGFR > 60.00
[2024-12-29 05:08] LABS: Glucose - Point of Care 106 mg/dl (70-99)
--- NOTE | 2024-12-29 06:27 | W.PN.CT ---
Addendum entered and electronically signed by Daron Elkins MD 12/29/24 09:33:
I saw and examined the patient.
The PA's note was reviewed and I agree with the note.
Comment:
POD#2 s/p CABG x 3
No major overnight events. OFF levo & dobutamine. De-lined.
Maintain CTs one more day
OOB/IS/ambulate
Original Note:
Today's Communication / Plan
-
-pod #2
-no issues overnght
-dobutamine off, levophed off ~0200 today
-CT output: 2 meds 10/115, 2 pleur 40/260 in 12/24 hrs
-follow Cr and UO closely (s/p renal transplant), s/p additional albumin last night, still due to void ~230 cc on bladder scan
-on immunosuppressants (Tacrolimus, Cellcept, and Prednisone)-appreciate ongoing renal input
-current meds (ASA, Plavix, Crestor, Lopressor held, Amio, Protonix, IS meds)
-encourage IS, OOB
Assessment / Plan
-
- mv-CAD - s/p CABG x 3 (CHARANJIT to LAD, GSV to OM, GSV to RPDA) by Dr. Elkins on 12/27/24, pod #2
- Post-ANGEL: LVEF 35-40% postop (preop 25-30%); most improved in mid and basal wall segments. Trace MR. Trace TR. Mild calcified atheroma in distal arch and descending aorta.
- NSTEMI/CAD, hx of MARI to OM1 01/2021
- ICM, LVEF 30% preop
- HTN/ HLD
- DM II, HgA1c 7.3
- ESRD, s/p renal transplant 11/11/21 (living related donor) - on Tacrolimus, Cellcept, and Prednisone
- Non-smoker
- 50-60% LICA
- Multiple Mohs
- Cholecystectomy 2015
- Acute postop blood loss anemia- stable without transfusion
- Acute postop atelectasis
- Acute postop hypovolemia with postop hypervolemia
- Suspected acute postop pericarditis/+rub
Subjective
-
Date of Service: December 29, 2024
Objective Data
-
Lab Results
12/29/24 03:15
12/29/24 03:15
PT 17.6 Sec (11.4-14.6) H 12/27/24 13:33
INR 1.42 12/27/24 13:33
APTT 29.7 Sec (23.4-35.0) 12/27/24 13:33
Vital Signs
Vital Signs
Temp Pulse Resp BP Pulse Ox
98.3 F 81 20 119/62 97
12/29/24 04:00 12/29/24 06:00 12/29/24 06:00 12/29/24 06:00 12/29/24 06:00
CT Intake/Output/Weight
12/28/24 12/28/24 12/29/24
06:59 18:59 06:59
Intake Total 631.4 / 1193.2 429.9 / 882.4 452.5 / 882.4
Output Total 605 / 1410 515 / 565 50 / 565
Balance 26.4 / -216.8 -85.1 / 317.4 402.5 / 317.4
SaO2: 97
Physical Exam
-
General: Awake, Oriented and AOx3
Cardiovascular: Regular rate & rhythm, No Murmurs and No Rub
Respiratory: Clear, Equal and Decreased Breath Sounds
Sternum: Stable
Incision: Clean, Dry and Intact
Extremities: No Edema
Data Reviewed
-
Lab Results: Results Reviewed
Medications: Active Meds Reviewed
Chest X-Ray: Report Reviewed
ECG: Report Reviewed
[2024-12-29] MEDS: ENVARSUS XR 1 MG PO (06:35)
[2024-12-29] MEDS: ENVARSUS XR 1.5 MG PO (06:35)
[2024-12-29] MEDS: TYLENOL 1000 MG PO ×3 (06:35→21:10)
[2024-12-29] MEDS: CELLCEPT 500 MG PO ×2 (06:37→18:28)
[2024-12-29 07:12] LABS: Glucose - Point of Care 73 mg/dl (70-99)
--- NOTE | 2024-12-29 07:59 | W.PN.INTV ---
Today's Communication / Plan
Recommendations
Up OOB as tolerated
Encourage incentive spirometer use q1hr while awake
Pain control
Removal of L-IJ cordis and chest tubes per CT surgery team
Continue insulin drip --> wean off per protocol; would start basal-bolus insulin once off insulin gtt
Cavalry Scout services will continue to follow along while he remains in the CVICU. Once transferred to CVICU�telemetry status then we will sign off at that time.
Assessment
-
Patient is a 64-year-old male with past history of CAD, diabetes, end-stage renal disease status post kidney transplant on chronic immunosuppression, originally presented to ER with shortness of breath, dull pain under both arms and mid back for
the past 2 days. He was ruled in for NSTEMI with peak troponin of 1.8. Underwent cardiac catheterization on 12/24/2024 demonstrating multivessel CAD. CTS evaluation for CABG obtained on this admission. Underwent CABG x 3 on 12/27/2024,
postoperatively transferred to CVICU for further management.
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
Perioperative mechanical ventilation
ICM EF 25-30%
NSTEMI
Acute HFrEF exacerbation, proBNP 7400
Conditions present prior to admission
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
ESRD presumably DM/hypertension
CAD with MARI to OM1 January 2021
Nephrolithiasis
Hypertension, multidrug
Hyperlipidemia
Cystoscopy with stone extraction
Hemodialysis with right chest wall CVC x 8 months in 2020
Mohs, multiple
Cholecystectomy 2014
Plan
S/p CAB x 3 POD #2
Titrate off pressors per protocol
TTE from 12/25/2024 reviewed with low EF (30%) --> presumed new ICM with stage II diastolic dysfunction and no significant valvular disease
PA catheter now removed
Removal of left�IJ cordis per cardiothoracic surgery team
Management of chest tubes per primary service
Continue DAPT with ASA and plavix; continue high intensity statin
Continue amiodarone
Patient successfully extubated on 12/27/2024 and is now on room air breathing comfortably
Maintain SpO2 >90-94lasix
%
Pain control
CT Chest from 12/26/2024 with r-sided pleural effusion noted -- s/p IV diuresis on 12/29
No prior history of pulmonary disease, nonsmoker
No Prior PFTs for review
Can add nebulizers if needed � not currently bronchospastic
Aspiration precautions
Encouraged incentive spirometry, OOB/ambulation/early mobility
Continue ADA
GI prophylaxis: PPI
ESRD s/p transplant, resumed on home meds
Monitor critical I/O
Follow output from [facility]/chest tube
Hb/platelets postoperatively stable
Trend CBC
Can transfuse if indicated for Hb <7, plt <50k in surgical patients
DVT prophylaxis including SCDs
Insulin protocol initiated and ongoing - currently at 18 units/hr
Transition to SQ/off as indicated per team
C[employer] services will continue to follow along while he remains in the CVICU. Once transferred to CVICU�telemetry status then we will sign off at that time.
Diagnostic Data
Chest X-Ray: 12/27/24- No acute disease of the chest.
CT Scan: CHEST 12/26/24- Small to moderate pleural effusion with minor adjacent compressive atelectasis. Incidental mild splenomegaly, left adrenal myelolipoma, and renal cortical atrophy.
Echo: 12/27/24- Overall LVEF is approximately 25-30%. Severe apical anterior and septal hypokinesis. Moderate global hypokinesis in the mid/basal wall segments as well. Left ventricle is moderately dilated. Mild concentric left ventricular
hypertrophy. Stage I Diastolic dysfunction. Moderately dilated left atrium. Trace mitral regurgitation. Moderate MV annular calcification. Mild AV annular calcification noted. Mild calcified sessile atheroma seen in the descending aorta and
distal arch.
Reports and relevant images were personally reviewed.
Critical care statement: A total of 37 minutes of critical care time was provided for this patient today. This includes management of unstable vital signs, evaluation of the patient at bedside, reviewing the patient's pertinent medical records
including radiographs, microbiology, laboratory evaluations, and discussion with primary team, consultants, pharmacy, nutrition, physical therapy, case management, charge nurse, critical care nursing, and respiratory therapy.
Subjective Dataa
Subjective Data
Date of Service:
Date of Service: December 29, 2024
Chief Complaint: Cavalry Scout Follow Up
Subjective:
Patient was seen and evaluated today at bedside. Patient's , Anne, at bedside and all questions were answered. Patient currently on insulin drip at 18 units/hr. He says he feels well, denying chest pain or shortness of breath. Currently on
room air breathing comfortably and saturating 99%. Chest tubes x [address] Heart rate 89 BP 125/66.
Review of Systems
General: Other (Negative unless mentioned above)
Objective Data
Data Reviewed
Vital Signs / I&O / Oxygen:
Vital Signs
Temp Pulse Resp BP Pulse Ox
97.6 F 80 20 111/61 99
12/29/24 08:32 12/29/24 10:00 12/29/24 10:00 12/29/24 10:00 12/29/24 10:00
Intake and Output
12/28/24 12/29/24 12/30/24
06:59 06:59 06:59
Intake Total 1163.9 / 1193.2 882.4 / 882.4 311.6 / 311.6
Output Total 1380 / 1410 565 / 565 520 / 520
Balance -216.1 / -216.8 317.4 / 317.4 -208.4 / -208.4
SaO2 [CPAP] 98
SaO2 [SIMV] 98
SaO2 99
Nasal Cannula flow liters per 2
minute
Physical Exam
General: Respiratory Distress (negative), Comfortable, Chills (negative) and Sweats (negative)
HEENT: Normocephalic, Anicteric and Other (Cordis in left IJ)
Cardiovascular: S1-S2, Murmur ([place] best at RUSB) and Peripheral Edema (negative)
Respiratory: Wheeze (negative), Crackles (Bibasilar), Rhonchi (negative), Accessory Resp Muscle Use (negative) and Chest Tube (Bilateral pleural + mediastinal x 2)
GI: Soft, Non Distended, Non Tender and Normal Bowel Sounds
Neurology: AO x 3 and Tremors (negative)
Skin: Warm, Dry, Cyanosis (negative) and Jaundice (negative)
Labs/Micro/Reports
Lab Data
12/29/24 03:15
12/29/24 03:15
[2024-12-29] MEDS: NOVOLOG FLEXPEN SC (08:16)
[2024-12-29] MEDS: MAGNESIUM OXIDE 500 MG PO (08:17)
[2024-12-29] MEDS: DELTASONE 5 MG PO (08:17)
[2024-12-29] MEDS: PROTONIX 40 MG PO (08:17)
[2024-12-29] MEDS: PACERONE 200 MG PO ×3 (08:17→21:10)
[2024-12-29] MEDS: SENOKOT-S 1 TABLET PO (08:17)
[2024-12-29] MEDS: LOW STRENGTH ASPIRIN 81 MG PO (08:18)
[2024-12-29] MEDS: LIDOCAINE 4% PATCH TOPICAL (08:18)
[2024-12-29] MEDS: BACTROBAN 2% OINTMENT 1 APPLIC NASAL ×2 (08:18→19:42)
[2024-12-29] MEDS: PLAVIX 75 MG PO (08:18)
[2024-12-29] MEDS: NEURONTIN PO ×3 (08:18→15:16)
[2024-12-29 08:26] LABS: Glucose - Point of Care 141 mg/dl (70-99)
[2024-12-29 08:57] LABS: Glucose - Point of Care 196 mg/dl (70-99)
[2024-12-29] MEDS: LASIX 20 MG IV (08:57)
--- NOTE | 2024-12-29 09:44 | PTCARENOTE ---
Patient received from construction sales manager RN; AAOx3, drowsy but responds spontaneously to RN and follows commands; VSS; SR with PVC's on monitor; Friction rub present; Trace B/L LE edema; +2 DP and radial pulses; SpO2 97-98% on RA; Shallow respirations; IS
750 ml; CT x4 connected to -20 cm wall suction - no crepitus, tidaling, or crepitus noted; Oliguric but patient voided clear, batsheva urine in urinal at bedside; Surgical incision sites intact; LIJ Cordis with KVO infusing; Right radial arterial line
zeroed and level - removed by RN at bedside at 0840; PIVx1 #20 right forearm with insulin gtt infusing - see nursing flowsheets for further details; IV Lasix 20 mg ordered and given; See nursing documentation for further information.
[2024-12-29 10:03] LABS: Glucose - Point of Care 242 mg/dl (70-99)
--- NOTE | 2024-12-29 10:10 | W.PN.NEPH.PH ---
Today's Communication / Plan
-
await FK
Assessment/Plan
-
64-year-old male with past medical history significant for hypertension, CAD, NIDDM, and hx ESRD s/p kidney transplant who presented to [facility] ED for evaluation of increased exertional dyspnea over the past few weeks
Renal consult for transplant management and perioperative
Impression.
Renal transplant 2021 living related donor.
Coronary artery disease three-vessel requiring CABG
Hypertension.
Diabetes.
Plan.
follow BMP
FK 7.4, but 2am draw.
await new FK level
still on amiodarone
-
-
Date of Service: December 29, 2024
CC / HPI / ROS
-
Chief Complaint:
Weakness with shortness of breath
History of Present Illness:
s/p CABGx3 12/27
BP stable, off pressors
nonoliguric
Cr stable
Review of Systems:
no CP/SOB
Labs
-
Labs:
WBC 10.3 10^3/uL (4.8-10.8) 12/29/24 03:15
RBC 3.42 10^6/uL (4.70-6.10) L 12/29/24 03:15
Hgb 9.1 g/dL (13.0-18.0) L 12/29/24 03:15
Hct 28.2 % (39.0-52.0) L 12/29/24 03:15
Plt Count 174 10^3/uL (130-400) 12/29/24 03:15
Sodium 135 mmol/L (135-145) 12/29/24 03:15
Potassium 4.1 mmol/L (3.5-5.1) 12/29/24 03:15
Chloride 105 mmol/L (98-107) 12/29/24 03:15
Carbon Dioxide 26 mmol/L (22-30) 12/29/24 03:15
BUN 25 mg/dl (9-20) H 12/29/24 03:15
Creatinine 0.9 mg/dL (0.7-1.3) 12/29/24 03:15
eGFR > 60.00 12/29/24 03:15
Glucose 94 mg/dl (70-99) 12/29/24 03:15
Calcium 8.3 mg/dl (8.4-10.2) L 12/29/24 03:15
Yeh-S-Ofolwrfhzcr Pept 7400 pg/ml 12/24/24 13:40
Albumin 3.5 g/dl (3.5-5.0) 12/26/24 02:12
Physical Exam
-
Vital Signs:
Vital Signs
Temp Pulse Resp BP Pulse Ox
97.6 F 80 20 111/61 99
12/29/24 08:32 12/29/24 10:00 12/29/24 10:00 12/29/24 10:00 12/29/24 10:00
Cardiovascular:: Regular rate and rhythm
Respiratory:: Bilateral: Coarse
Lung Excursion:: Normal
Abdomen:: Nontender and Soft
Bowel Sounds:: Normal
Extremity Edema:: +2: Bilateral:
--- NOTE | 2024-12-29 10:20 | W.PN.CD ---
Today's Communication / Plan
-
OOB in chair
ISB
cont post-op care
Impression / Plan
-
64 year old male with PMH CAD s/p stent placement 3 years ago, HTN, hx kidney transplant who presented with CP and is now seen to have MVD now s/p CABG.
NSTEMI/CAD:
-troponin as high as 1.8
-echo below
-Cath 12/24/24: Dominance: Right. LAD: Large vessel giving rise to 3 moderate caliber diagonal branches. There is a focal severe 95% stenosis in the mid LAD and otherwise mild nonobstructive disease. LCx: 80% stenosis in the ostial circumflex.
There is a widely patent stent in the proximal OM1 branch extending proximally into the proximal circumflex. RCA: serial high grade stenoses in the proximal to mid RCA, high grade ostial disease of the RPDA, moderate disease in the RPAV leading into
the RPL branches. There is competitive flow in the RPL branches from L-R collaterals.
-CT surgery s/p CABG with CHARANJIT to LAD, GSV to OM, and GSV to RPDA
-LDL 75, now on crestor
- currently on levophed and dobutamine wean as able
- off pressor support
HTN:
-initiate BB when able
Hx renal transplant:
-on anti rejection meds
-nephrology is consulted
DM:
-hgbA1C 7.3
-management per primary
Subjective: Feeling improved
TTE 12/26/2024
Left ventricle is mildly dilated. Severely reduced left ventricular systolic
function.
Left ventricular ejection fraction is 30% by volumetric assessment.
Lateral toney are best preserved, LAD distribution most severely hypokinetic.
Stage II diastolic dysfunction suggestive of abnormal relaxation and increased
filling pressures.
No significant valvular disease.
No prior study available for comparison.
Physical Exam
Vital Signs/Labs
Vital Signs
Temp Pulse Resp BP Pulse Ox
97.6 F 80 20 111/61 99
12/29/24 08:32 12/29/24 10:00 12/29/24 10:00 12/29/24 10:00 12/29/24 10:00
12/28/24 12/29/24 12/30/24
06:59 06:59 06:59
Actual Weight 188 lb 7.924 oz 189 lb 13.088 oz
12/29/24 03:15
12/29/24 03:15
PT 17.6 Sec (11.4-14.6) H 12/27/24 13:33
INR 1.42 12/27/24 13:33
APTT 29.7 Sec (23.4-35.0) 12/27/24 13:33
Magnesium 2.3 mg/dl (1.6-2.3) 12/29/24 03:15
Triglycerides 105 mg/dl (10-149) 12/25/24 04:04
LDL Cholesterol, Calc 75 mg/dl 12/25/24 04:04
VLDL Cholesterol, Calc 21 mg/dl (0-30) 12/25/24 04:04
HDL Cholesterol 26 mg/dl 12/25/24 04:04
12/24/24
13:40
Nuq-Z-Udnxgvktnyl Pept 7400
Physical Exam
Constitutional: No acute distress and Comfortable
EENT: Anicteric
Cardiovascular: Rhythm & rate is regular and Pedal edema is absent
Respiratory: Respiratory effort normal and Lungs clear to auscul.
GI: Soft
Neuro/Psych: AO x 3
Data Reviewed
-
Date of Service: December 29, 2024
EKG: Tracing Personally Visualized and interpreted (sr)
Labs: Labs Reviewed by me
[2024-12-29 11:01] LABS: Glucose - Point of Care 270 mg/dl (70-99)
[2024-12-29] MEDS: NSS 500 IV (12:03)
[2024-12-29 12:06] LABS: Glucose - Point of Care 257 mg/dl (70-99)
[2024-12-29] MEDS: NOVOLIN R INSULIN INFUSION 100 IV (12:07)
[2024-12-29] MEDS: NOVOLOG FLEXPEN 8 UNITS SC ×2 (12:12→17:28)
--- NOTE | 2024-12-29 12:30 | PTCARENOTE ---
Patient ambulating in hallway with RN; Patient remains on insulin drip
[2024-12-29 13:10] LABS: Glucose - Point of Care 180 mg/dl (70-99)
[2024-12-29 14:09] LABS: Glucose - Point of Care 122 mg/dl (70-99)
[2024-12-29 15:02] LABS: Glucose - Point of Care 88 mg/dl (70-99)
[2024-12-29 16:05] LABS: Glucose - Point of Care 98 mg/dl (70-99)
[2024-12-29 17:10] LABS: Glucose - Point of Care 109 mg/dl (70-99)
[2024-12-29] MEDS: CRESTOR 40 MG PO (17:28)
[2024-12-29] MEDS: CORDARONE 103 MG IV (18:01)
[2024-12-29 18:19] LABS: Glucose - Point of Care 94 mg/dl (70-99)
[2024-12-29] MEDS: CORDARONE 518 MG IV (18:27)
--- NOTE | 2024-12-29 18:33 | PTCARENOTE ---
Patient converted to afib with RVR at 1735; HR 120's-160's, other VSS; Patient denies SOB, chest pain, dizziness, or lightheadedness at this time; #22 LAC inserted by RN for amiodarone bolus and infusion - see nursing flowsheets for further details
[2024-12-29] MEDS: LOPRESSOR 5 MG IV ×2 (18:47→19:41)
[2024-12-29] MEDS: MAGNESIUM SULFATE 50 IV (19:42)
[2024-12-29] MEDS: MAGNESIUM OXIDE PO (19:43)
--- NOTE | 2024-12-29 20:00 | PTCARENOTE ---
Received pt from [facility]. pt resting comfortably in be with at bedside. pt is AAOx4. Afib on monitor, VSS. heart sounds audible, rub present, radial and DP pulses palpable, trace MARIA ESTHER. lungs diminished at b/l bases, spo2 100% on RA, x2 MS and
x2 Pleural CT to -20 wall suction, no air leaks, no tidaling, no crepitus. +BS x 4 quadrants, abdomen, soft non tender. pt voiding clear yellow urine without difficulty. surgical sites maintained. left IJ cordis and PIVs maintained. insulin and
amio gtt infusing. call may within reach. will continue to monitor.
--- NOTE | 2024-12-29 21:00 | PTCARENOTE ---
IVBP of mag and IV Lopressor ordered. pt converted from Afib to NSR at 2100. will continue to monitor.
[2024-12-29] MEDS: SENOKOT-S PO (21:01)
[2024-12-29] MEDS: LANTUS 0.1 UNITS SC (21:07)
[2024-12-29] MEDS: NEURONTIN 100 MG PO (21:10)
[2024-12-29 21:55] LABS: Glucose - Point of Care 152 mg/dl (70-99)
[2024-12-29 21:55] LABS: Glucose - Point of Care 148 mg/dl (70-99)
[2024-12-29 21:57] LABS: Glucose - Point of Care 102 mg/dl (70-99)
[2024-12-29 22:23] LABS: Glucose - Point of Care 82 mg/dl (70-99)
--- NOTE | 2024-12-29 23:00 | PTCARENOTE ---
pt given Lantus at 2100. insulin gtt stopped two hrs later at 2300 per ordered. BG checked before administration of Lantus and again at 2200, and 2300.
[2024-12-29 23:08] LABS: Glucose - Point of Care 98 mg/dl (70-99)
[2024-12-30] VITALS (15 sets, daily range): BP systolic 95–132; BP diastolic 51–67; PULSE 65; O2SAT 96–99; BMI 27.3
--- NOTE | 2024-12-30 | PTCARENOTE ---
Pt assessment unchanged. NSR on monitor. VSS. resting comfortably. will continue to monitor.
--- NOTE | 2024-12-30 04:00 | PTCARENOTE ---
pt assessment unchanged. NSR on monitor. VSS. AM labs drawn and sent. pt cleaned with CHG wipes, new leads and gown provided. CT dressing changed. pt assisted to bedside to void 175ml of yellow urine. pt was bladder scanned after, PVR wsa 0. call
may within reach. will continue to monitor.
[2024-12-30 04:28] LABS: Hematocrit 28.6 % (39.0-52.0); Hemoglobin 8.9 g/dL (13.0-18.0); Mean Corp Hgb Conc. 31.1 g/dL (33.0-37.0); Mean Corpuscular Hgb 26.2 pg (27.0-31.0); Mean Corpuscular Volume 84.1 fL (80.0-94.0); Mean Platelet Volume 10.1 fL (7.4-10.4); Platelet Count 191 10^3/uL (130-400); Red Cell Dist. Width 14.3 % (11.5-14.5); White Blood Cell Count 10.9 10^3/uL (4.8-10.8)
[2024-12-30 05:12] LABS: Blood Urea Nitrogen 33 mg/dl (9-20); Calcium 8.8 mg/dl (8.4-10.2); Carbon Dioxide 21 mmol/L (22-30); Chloride 104 mmol/L (98-107); Estimated Creatinine Clearance 87 ml/min; Glucose 136 mg/dl (70-99); Magnesium 2.8 mg/dl (1.6-2.3); Potassium 4.5 mmol/L (3.5-5.1); Sodium 132 mmol/L (135-145); eGFR > 60.00
--- NOTE | 2024-12-30 05:46 | W.PN.CT ---
Today's Communication / Plan
-
-pod #3
-Afib with RVR yesterday ~1730 hrs, s/p amio bolus/gtt, IV lopressor x10 mg total, IV mag now converted to NSR ~2100 hrs. remains on amio gtt
-CT output: 2 meds 55/225, 2 pleur 60/195 in 12/24 hrs
-follow Cr and UO closely (s/p renal transplant), s/p IV lasix, UOP 175 (DTV this AM)/1075
-on immunosuppressants (Tacrolimus, Cellcept, and Prednisone)-appreciate ongoing renal input for tacro adjustments
-current meds (ASA, Plavix, Crestor, Lopressor restarted, Amio, Protonix, IS meds)
-encourage IS, OOB
Assessment / Plan
-
- mv-CAD - s/p CABG x 3 (CHARANJIT to LAD, GSV to OM, GSV to RPDA) by Dr. Elkins on 12/27/24, pod #3
- Post-ANGEL: LVEF 35-40% postop (preop 25-30%); most improved in mid and basal wall segments. Trace MR. Trace TR. Mild calcified atheroma in distal arch and descending aorta.
- NSTEMI/CAD, hx of MARI to OM1 01/2021
- ICM, LVEF 30% preop
- HTN/ HLD
- DM II, HgA1c 7.3
- ESRD, s/p renal transplant 11/11/21 (living related donor) - on Tacrolimus, Cellcept, and Prednisone
- Non-smoker
- 50-60% LICA
- Multiple Mohs
- Cholecystectomy 2014
- Acute postop blood loss anemia- stable without transfusion
- Acute postop atelectasis
- Acute postop hypovolemia with postop hypervolemia
- Suspected acute postop pericarditis/+rub
Subjective
-
Date of Service: December 30, 2024
Objective Data
-
Lab Results
12/30/24 04:05
12/30/24 04:05
PT 17.6 Sec (11.4-14.6) H 12/27/24 13:33
INR 1.42 12/27/24 13:33
APTT 29.7 Sec (23.4-35.0) 12/27/24 13:33
Vital Signs
Vital Signs
Temp Pulse Resp BP Pulse Ox
99.1 F 65 16 121/65 99
12/30/24 04:00 12/30/24 05:20 12/30/24 05:00 12/30/24 04:00 12/30/24 04:[address]
CT Intake/Output/Weight
12/29/24 12/29/24 12/30/24
06:59 18:59 06:59
Intake Total 452.5 / 882.4 1208.5 / 1608.6 400.1 / 1608.6
Output Total 50 / 565 1205 / 1535 330 / 1535
Balance 402.5 / 317.4 3.5 / 73.6 70.1 / 73.6
SaO2: 99
Physical Exam
-
General: Awake, Oriented and AOx3
Cardiovascular: Regular rate & rhythm, No Murmurs and No Rub
Respiratory: Clear and Equal
Sternum: Stable
Incision: Clean, Dry and Intact
Extremities: No Edema and No Erythema
Data Reviewed
-
Lab Results: Results Reviewed
Medications: Active Meds Reviewed
Chest X-Ray: Report Reviewed
ECG: Report Reviewed
[2024-12-30] MEDS: ENVARSUS XR 1.5 MG PO (06:30)
[2024-12-30] MEDS: ENVARSUS XR 1 MG PO (06:30)
[2024-12-30] MEDS: TYLENOL 1000 MG PO ×3 (06:32→21:49)
[2024-12-30] MEDS: CELLCEPT 500 MG PO ×2 (06:32→18:18)
[2024-12-30] MEDS: NOVOLOG FLEXPEN-MODERATE RESISTANCE 1 UNITS SC (07:22)
[2024-12-30 07:24] LABS: Glucose - Point of Care 182 mg/dl (70-99)
--- NOTE | 2024-12-30 08:00 | PTCARENOTE ---
Assumed care of patient at 0700. Pt is awake, alert, and oriented. No complaints of pain at this time. Pt remains SR with HR 69. BP 117/62 MAP 77. Pulse oximetry 99% on room air. Mediastinal chest tubes x2 and left/right pleural chest tubes in
place, drainage serosanguineous in color. Pt achieving 750 with IS, continued use encouraged. Pt tolerating PO diet. Voiding without issue. Midsternal incision post-op dressing in place. Right leg incision and right groin puncture approximated and
REGINE. Left IJ cordis in place. Pt remains on Amio gtt at 0.5mg/min.
--- NOTE | 2024-12-30 08:02 | W.PN.INTV ---
Addendum entered and electronically signed by Mario Juarez MD 12/31/24 14:15:
Insulin gtt off since yesterday. We will now sign off. Please call back with any questions/concerns.
Original Note:
Today's Communication / Plan
Recommendations
Up OOB as tolerated
Encourage incentive spirometer use q1hr while awake
Pain control
Removal of L-IJ cordis and chest tubes per CT surgery team
Now off insulin drip --> maintain goal BG 140-180; continue basal-bolus insulin and adjust as needed
[facility] Consultant services will continue to follow along while he remains in the CVICU. Once transferred to CVICU�telemetry status then we will sign off at that time.
Assessment
-
Patient is a 64-year-old male with past history of CAD, diabetes, end-stage renal disease status post kidney transplant on chronic immunosuppression, originally presented to ER with shortness of breath, dull pain under both arms and mid back for
the past 2 days. He was ruled in for NSTEMI with peak troponin of 1.8. Underwent cardiac catheterization on 12/24/2024 demonstrating multivessel CAD. CTS evaluation for CABG obtained on this admission. Underwent CABG x 3 on 12/27/2024,
postoperatively transferred to CVICU for further management.
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
Perioperative mechanical ventilation
ICM EF 25-30%
NSTEMI
Acute HFrEF exacerbation, proBNP 7400
Conditions present prior to admission
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
ESRD presumably DM/hypertension
CAD with MARI to OM1 January 2021
Nephrolithiasis
Hypertension, multidrug
Hyperlipidemia
Cystoscopy with stone extraction
Hemodialysis with right chest wall CVC x 8 months in 2020
Mohs, multiple
Cholecystectomy 2014
Plan
S/p CAB x 3 POD #3
TTE from 12/25/2024 reviewed with low EF (30%) --> presumed new ICM with stage II diastolic dysfunction and no significant valvular disease
PA catheter now removed
Removal of left�IJ cordis per cardiothoracic surgery team
Management of chest tubes per primary service
Continue DAPT with ASA and plavix; continue high intensity statin
Continue amiodarone (on both PO + IV gtt)
Patient successfully extubated on 12/27/2024 and remains on room air breathing comfortably
Maintain SpO2 >90-94%, using O2 if needed
Pain control
CT Chest from 12/26/2024 with r-sided pleural effusion noted -- s/p IV diuresis on 12/29 and again today with 40mg IVP x1
No prior history of pulmonary disease, nonsmoker
No Prior PFTs for review
Can add nebulizers if needed � not currently bronchospastic
Aspiration precautions
Encouraged incentive spirometry, OOB/ambulation/early mobility
Continue ADA
GI prophylaxis: PPI
ESRD s/p transplant, resumed on home meds
Monitor critical I/O
Follow output from [facility]/chest tube
Hb/platelets postoperatively stable
Trend CBC
Can transfuse if indicated for Hb <7, plt <50k in surgical patients
DVT prophylaxis including SCDs
Insulin protocol initiated and ongoing - on 12/29/2024 insulin gtt was at 18 units/hr
Now off insulin gtt
Transition to SQ/off as indicated per team
[facility] Consultant services will continue to follow along while he remains in the CVICU. Once transferred to CVICU�telemetry status then we will sign off at that time.
Diagnostic Data
Chest X-Ray: 12/27/24- No acute disease of the chest.
CT Scan: CHEST 12/26/24- Small to moderate pleural effusion with minor adjacent compressive atelectasis. Incidental mild splenomegaly, left adrenal myelolipoma, and renal cortical atrophy.
Echo: 12/27/24- Overall LVEF is approximately 25-30%. Severe apical anterior and septal hypokinesis. Moderate global hypokinesis in the mid/basal wall segments as well. Left ventricle is moderately dilated. Mild concentric left ventricular
hypertrophy. Stage I Diastolic dysfunction. Moderately dilated left atrium. Trace mitral regurgitation. Moderate MV annular calcification. Mild AV annular calcification noted. Mild calcified sessile atheroma seen in the descending aorta and
distal arch.
Reports and relevant images were personally reviewed.
Critical care statement: A total of 41 minutes of critical care time was provided for this patient today. This includes management of unstable vital signs, evaluation of the patient at bedside, reviewing the patient's pertinent medical records
including radiographs, microbiology, laboratory evaluations, and discussion with primary team, consultants, pharmacy, nutrition, physical therapy, case management, charge nurse, critical care nursing, and respiratory therapy.
Subjective Dataa
Subjective Data
Date of Service:
Date of Service: December 30, 2024
Chief Complaint: Ux Consultant Follow Up
Subjective:
Patient seen and evaluated today at bedside. Currently on amiodarone at 0.5 mg/min, and he is feeling well with HR 65. Denies shortness of breath or chest pain. Left�IJ cordis in place. Patient's at bedside and all questions were answered.
Review of Systems
General: Other (Negative unless mentioned above)
Objective Data
Data Reviewed
Vital Signs / I&O / Oxygen:
Vital Signs
Temp Pulse Resp BP Pulse Ox
97.9 F 64 18 117/62 100
12/30/24 12:20 12/30/24 12:20 12/30/24 12:20 12/30/24 07:00 12/30/24 12:20
Intake and Output
12/29/24 12/30/24 12/31/24
06:59 06:59 06:59
Intake Total 882.4 / 882.4 1635.3 / 1662.0 160.2 / 160.2
Output Total 565 / 565 1545 / 1545 750 / 750
Balance 317.4 / 317.4 90.3 / 117.0 -589.8 / -589.8
SaO2 [CPAP] 98
SaO2 [SIMV] 98
SaO2 100
Nasal Cannula flow liters per 2
minute
Physical Exam
General: Respiratory Distress (negative), Comfortable, Chills (negative) and Sweats (negative)
HEENT: Normocephalic, Anicteric and Other (Cordis in left IJ)
Cardiovascular: S1-S2, Murmur ([place] best at RUSB) and Peripheral Edema (negative)
Respiratory: Wheeze (negative), Crackles (Bibasilar), Rhonchi (negative), Accessory Resp Muscle Use (negative) and Chest Tube (Bilateral pleural chest tubes + mediastinal x 2)
GI: Soft, Non Distended, Non Tender and Normal Bowel Sounds
Neurology: AO x 3 and Tremors (negative)
Skin: Warm, Dry, Cyanosis (negative) and Jaundice (negative)
Labs/Micro/Reports
Lab Data
12/30/24 04:05
12/30/24 04:05
--- NOTE | 2024-12-30 08:10 | PN.DE.MGMTRT ---
Addendum entered and electronically signed by NGHIA Call 12/30/24 16:58:
Notified by CV LATASHA about and elevated blood sugar of 313 before lunch time and that insulin AC NovoLog therapy via SQ injections was initiated.
Of note, pt remains on Amiodarone drip in dextrose that was initiated yesterday @1800 and is due to be d/c'd today at 1800. The Dextrose mixture may be contributing to hyperglycemia. Will Give 1 time dose of Lantus 10 units @ HS. Cont AC NovoLog 5
units and low corrective insulin with meals.
Will followup in AM after Dextrose infusion and reassess if basal/bolus insulin is warranted.
Original Note:
Insulin Management
- -
12/30/2024: Diabetes Management Follow up
64 year old male who presented with CP and SOB, noted for NSTEMI and MVCAD.
PMH: HTN, CAD s/p stent placement 3 years ago, HTN, h/o ESRD, s/p kidney transplant and T2DM. Was taking Metformin 1000 mg BID, Repaglinide 3mg TID and Jardiance 10mg daily, [employer]. A1C 7.3%, Cr 0.6, eGFR >60
Pt awake, alert, oriented, sitting up in chair, offer no complaints, able to discuss diabetes care plan, at bedside.
Pt was transitioned off insulin infusion to Metformin last night, received Lantus 10 units prior to turning off drip.
Glucose stable and in range since transitioning off drip. FBG 132(V), 182 POC this AM
Will start his OP regimen: Farxiga 10mg daily (Jardiance at home) and Repaglinide 3mg TID, will start both meds this AM.
Cont Metformin 100 mg BID and corrective insulin with meals.
Pt has a glucose meter at home with enough testing supplies. Will cont to follow. Discussed with Nurse.
Diabetes History
- -
Type of Diabetes: 2 requiring insulin
Pre-Admission Diabetes Regimen
12/30/24
04:05
Creatinine 0.9
Lab Results
Hemoglobin A1c Cancelled 12/24/24 17:07
Insulin Pump Settings
IP Diabetes Regimen
12/29/24 12/29/24 12/29/24
08:11 08:55 10:01
Glucose
POC Glucose 141 H 196 H 242 H
12/29/24 12/29/24 12/29/24
10:57 12:00 13:07
Glucose
POC Glucose 270 H 257 H 180 H
12/29/24 12/29/24 12/29/24
14:07 15:00 16:04
Glucose
POC Glucose 122 H 88 98
12/29/24 12/29/24 12/29/24
17:09 18:17 19:58
Glucose
POC Glucose 109 H 94 152 H
12/29/24 12/29/24 12/29/24
20:54 21:56 22:21
Glucose
POC Glucose 148 H 102 H 82
12/29/24 12/30/24 12/30/24
23:07 04:05 07:21
Glucose 136 H
POC Glucose 98 182 H
Meal type: Lunch
Meal type: Breakfast
Amount consumed: 75%
Amount consumed: 100%
Patient Education
[2024-12-30] MEDS: MAGNESIUM OXIDE 500 MG PO ×2 (08:22→19:43)
[2024-12-30] MEDS: PLAVIX 75 MG PO (08:22)
[2024-12-30] MEDS: NEURONTIN 100 MG PO ×3 (08:22→21:49)
[2024-12-30] MEDS: GLUCOPHAGE 1000 MG PO ×2 (08:22→16:54)
[2024-12-30] MEDS: PACERONE 200 MG PO ×3 (08:22→21:49)
[2024-12-30] MEDS: LOW STRENGTH ASPIRIN 81 MG PO (08:22)
[2024-12-30] MEDS: LOPRESSOR 12.5 MG PO ×2 (08:22→19:43)
[2024-12-30] MEDS: DELTASONE 5 MG PO (08:22)
[2024-12-30] MEDS: LASIX 40 MG IV (08:22)
[2024-12-30] MEDS: BACTROBAN 2% OINTMENT 1 APPLIC NASAL ×2 (08:23→19:43)
[2024-12-30] MEDS: LIDOCAINE 4% PATCH 1 PATCH TOPICAL (08:23)
[2024-12-30] MEDS: SENOKOT-S 1 TABLET PO ×2 (08:23→19:44)
[2024-12-30] MEDS: PROTONIX 40 MG PO (08:23)
--- NOTE | 2024-12-30 08:26 | W.PN.CD ---
Today's Communication / Plan
-
-Post op afib about 3 hours 12/29/24. Back in NSR
- remains on Amio
- Note that amio can increase Tacrolimus levels. Reviewed with nephrology who is following
- chest tubes likely comingout today as per Ct surgery
Impression / Plan
-
64 year old male with PMH CAD s/p stent placement 3 years ago, HTN, hx kidney transplant who presented with CP and is now seen to have MVD now s/p CABG.
NSTEMI/CAD:
-troponin as high as 1.8
- cath with multivessel CAD
-CT surgery s/p CABG with CHARANJIT to LAD, GSV to OM, and GSV to RPDA
-Post op afib about 3 hours 12/29/24. Back in NSR
- remains on Amio
- Note that amio can increase Tacrolimus levels. Reviewed with nephrology who is following
HTN:
-initiate BB when able
Hx renal transplant:
-on anti rejection meds
-nephrology is consulted
DM:
-hgbA1C 7.3
-management per primary
ath 12/24/24: Dominance: Right. LAD: Large vessel giving rise to 3 moderate caliber diagonal branches. There is a focal severe 95% stenosis in the mid LAD and otherwise mild nonobstructive disease. LCx: 80% stenosis in the ostial circumflex. There
is a widely patent stent in the proximal OM1 branch extending proximally into the proximal circumflex. RCA: serial high grade stenoses in the proximal to mid RCA, high grade ostial disease of the RPDA, moderate disease in the RPAV leading into the
RPL branches. There is competitive flow in the RPL branches from L-R collaterals.
TTE 12/26/2024
Left ventricle is mildly dilated. Severely reduced left ventricular systolic
function.
Left ventricular ejection fraction is 30% by volumetric assessment.
Lateral toney are best preserved, LAD distribution most severely hypokinetic.
Stage II diastolic dysfunction suggestive of abnormal relaxation and increased
filling pressures.
No significant valvular disease.
No prior study available for comparison.
Physical Exam
Vital Signs/Labs
Vital Signs
Temp Pulse Resp BP Pulse Ox
99.1 F 68 16 121/65 99
12/30/24 04:00 12/30/24 06:10 12/30/24 06:00 12/30/24 04:00 12/30/24 05:47
12/29/24 12/30/24 12/31/24
06:59 06:59 06:59
Actual Weight 86.2 kg
12/30/24 04:05
12/30/24 04:05
PT 17.6 Sec (11.4-14.6) H 12/27/24 13:33
INR 1.42 12/27/24 13:33
APTT 29.7 Sec (23.4-35.0) 12/27/24 13:33
Magnesium 2.8 mg/dl (1.6-2.3) H 12/30/24 04:05
Triglycerides 105 mg/dl (10-149) 12/25/24 04:04
LDL Cholesterol, Calc 75 mg/dl 12/25/24 04:04
VLDL Cholesterol, Calc 21 mg/dl (0-30) 12/25/24 04:04
HDL Cholesterol 26 mg/dl 12/25/24 04:04
12/24/24
13:40
Pfl-P-Naonzedvwwn Pept 7400
Physical Exam
Constitutional: No acute distress
Cardiovascular: Rhythm & rate is regular
Respiratory: Lungs clear to auscul.
GI: Soft
Neuro/Psych: Alert
Data Reviewed
-
Date of Service: December 30, 2024
Medical Decision Making: Reviewed Test Results
Echo: Report Reviewed by me
Medical Tests (PFT, Pathology etc): Report Reviewed by me and Discussed with Patient (reviewed issues with nephrolgy and CT PA)
Labs: Labs Reviewed by me
--- NOTE | 2024-12-30 08:27 | W.PN.NEPH.PH ---
Today's Communication / Plan
-
Follow tacrolimus trough daily
Assessment/Plan
-
64-year-old male with past medical history significant for hypertension, CAD, NIDDM, and hx ESRD s/p kidney transplant who presented to [facility] ED for evaluation of increased exertional dyspnea over the past few weeks
Renal consult for transplant management and perioperative
Impression.
Renal transplant 2021 living related donor.
Coronary artery disease three-vessel requiring CABG
Hypertension.
Diabetes.
Plan.
follow BMP
FK pending
await new FK level
still on amiodarone and increased
follow FK trough again tomorrow
creatinine stable at 0.9
-
-
Date of Service: December 30, 2024
CC / HPI / ROS
-
Chief Complaint:
Weakness with shortness of breath
History of Present Illness:
s/p CABGx3 12/27
BP stable, off pressors
nonoliguric
Cr stable
Review of Systems:
no CP/SOB
Chest tubes
Labs
-
Labs:
WBC 10.9 10^3/uL (4.8-10.8) H 12/30/24 04:05
RBC 3.40 10^6/uL (4.70-6.10) L 12/30/24 04:05
Hgb 8.9 g/dL (13.0-18.0) L 12/30/24 04:05
Hct 28.6 % (39.0-52.0) L 12/30/24 04:05
Plt Count 191 10^3/uL (130-400) 12/30/24 04:05
Sodium 132 mmol/L (135-145) L 12/30/24 04:05
Potassium 4.5 mmol/L (3.5-5.1) 12/30/24 04:05
Chloride 104 mmol/L (98-107) 12/30/24 04:05
Carbon Dioxide 21 mmol/L (22-30) L 12/30/24 04:05
BUN 33 mg/dl (9-20) H 12/30/24 04:05
Creatinine 0.9 mg/dL (0.7-1.3) 12/30/24 04:05
eGFR > 60.00 12/30/24 04:05
Glucose 136 mg/dl (70-99) H 12/30/24 04:05
Calcium 8.8 mg/dl (8.4-10.2) 12/30/24 04:05
Wwu-I-Swvtdqrplrr Pept 7400 pg/ml 12/24/24 13:40
Albumin 3.5 g/dl (3.5-5.0) 12/26/24 02:12
Physical Exam
-
Vital Signs:
Vital Signs
Temp Pulse Resp BP Pulse Ox
99.1 F 68 16 121/65 99
12/30/24 04:00 12/30/24 06:10 12/30/24 06:00 12/30/24 04:00 12/30/24 05:47
Cardiovascular:: Regular rate and rhythm
Respiratory:: Bilateral: Coarse
Lung Excursion:: Normal
Abdomen:: Nontender and Soft
Bowel Sounds:: Normal
Extremity Edema:: +2: Bilateral:
Other Findings::
Chest tubes
[2024-12-30] MEDS: PRANDIN 3 MG PO ×3 (09:10→16:54)
[2024-12-30] MEDS: FARXIGA 10 MG PO (09:10)
--- NOTE | 2024-12-30 10:30 | PTCARENOTE ---
Pt ambulated in the hallway with RN assistance. Chest tubes d/c'd per order without issue.
[2024-12-30] MEDS: NSS IV (11:10)
--- NOTE | 2024-12-30 11:28 | CM ---
Reviewed chart. Met with and Mrs. Ochoa to review discharge plans. He states prior to admission he resides with his spouse in a two story home with two steps to enter. He states he has a bedroom with full bathroom on each level. He states
he is planning on staying on the first floor for the first two weeks. He states prior to admission he was independent with ambulation and adls. He states he ambulated in the hallway today and did the stairs. He states he does not have any DME in
the home. He states he has a prescription plan. We reviewed a home visit by the Transitional Care Nurse. He is agreeable to home visit. His spouse states she will be home to assist in his care if needed. Medical work-up in progress. The discharge
plan is to return home with his spouse and a home visit by the Transitional Care Nurse when medically stable.
[2024-12-30] MEDS: NOVOLOG FLEXPEN-MODERATE RESISTANCE 7 UNITS SC (12:27)
[2024-12-30 12:30] LABS: Glucose - Point of Care 313 mg/dl (70-99)
[2024-12-30 13:39] LABS: Glucose - Point of Care 294 mg/dl (70-99)
[2024-12-30] MEDS: NOVOLOG FLEXPEN 5 UNITS SC ×2 (14:20→17:03)
--- NOTE | 2024-12-30 14:30 | PTCARENOTE ---
Pre-lunch Accucheck 313. CT LATASHA, Faith aware. Scheduled Novolog and Prandin administered. Repeat Accucheck 294. 5 units Novolog administered per order.
[2024-12-30] MEDS: CRESTOR 40 MG PO (16:54)
--- NOTE | 2024-12-30 16:55 | PTCARENOTE ---
Pt ambulated multiple times in thomas with without issue. Pt remains SR with HR 60's. BP 109/54 MAP 72. Pulse oximetry 100% on room air. Pt remains on Amio gtt at 0.5mg/min.
[2024-12-30 17:03] LABS: Glucose - Point of Care 252 mg/dl (70-99)
[2024-12-30] MEDS: NOVOLOG FLEXPEN-HIGH RESISTANCE 7 UNITS SC (17:03)
--- NOTE | 2024-12-30 19:57 | PTCARENOTE ---
received pt from previous rn. Pt AAOx4, VSS, NSR per tele monitor HR 60s, +pulses, pox 100% on RA, lungs diminished, occasional non productive cough, deep breathing and IS encouraged, +bs, voids spontaneously in urinal, all surgical incisions
intact, CT dressing c/d/i, PIV x2 intact, LIJ cordis infusing KVO, plan of care discussed and questions encouraged.
[2024-12-30] MEDS: LANTUS 0.1 UNITS SC (21:48)
[2024-12-30 21:49] LABS: Glucose - Point of Care 172 mg/dl (70-99)
[2024-12-30] MEDS: KCL 20 MEQ PO (22:17)
--- NOTE | 2024-12-30 22:23 | PTCARENOTE ---
pt had 10 beat run of SVT while in bathroom, pt asymptomatic, AAOx4, VSS, CTPA made aware, KCl 20 meq given.
--- NOTE | 2024-12-30 23:38 | PTCARENOTE ---
VSS, NSR per tele monitor, HR 60s, assessment remains unchanged
[2024-12-31 02:31] VITALS: BP 116/54
[2024-12-31 02:38] LABS: Glucose - Point of Care 126 mg/dl (70-99)
[2024-12-31 02:41] VITALS: BMI 27.1
--- NOTE | 2024-12-31 04:00 | PTCARENOTE ---
VSS. NSR per tele monitor HR 60s, assessment remains unchanged
[2024-12-31 04:51] LABS: Ionized Calcium 1.21 mMOL/L (1.15-1.33)
[2024-12-31 04:58] LABS: Hematocrit 29.7 % (39.0-52.0); Hemoglobin 9.3 g/dL (13.0-18.0); Mean Corp Hgb Conc. 31.3 g/dL (33.0-37.0); Mean Corpuscular Hgb 26.2 pg (27.0-31.0); Mean Corpuscular Volume 83.7 fL (80.0-94.0); Mean Platelet Volume 10.4 fL (7.4-10.4); Platelet Count 224 10^3/uL (130-400); Red Blood Cell Count 3.55 10^6/uL (4.70-6.10); Red Cell Dist. Width 14.2 % (11.5-14.5); White Blood Cell Count 9.5 10^3/uL (4.8-10.8)
[2024-12-31 05:16] LABS: Blood Urea Nitrogen 43 mg/dl (9-20); Calcium 8.8 mg/dl (8.4-10.2); Carbon Dioxide 27 mmol/L (22-30); Chloride 102 mmol/L (98-107); Estimated Creatinine Clearance 65 ml/min; Glucose 97 mg/dl (70-99); Magnesium 2.5 mg/dl (1.6-2.3); Potassium 4.3 mmol/L (3.5-5.1); Sodium 136 mmol/L (135-145); eGFR > 60.00
[2024-12-31] MEDS: ENVARSUS XR 1.5 MG PO (06:24)
[2024-12-31] MEDS: ENVARSUS XR 1 MG PO (06:24)
[2024-12-31] MEDS: TYLENOL PO (06:26)
[2024-12-31] MEDS: CELLCEPT 500 MG PO (06:26)
[2024-12-31 07:47] VITALS: BP 108/60
[2024-12-31 07:54] LABS: Glucose - Point of Care 103 mg/dl (70-99)
[2024-12-31] MEDS: PROTONIX 40 MG PO (07:58)
[2024-12-31] MEDS: LASIX 40 MG IV (07:58)
[2024-12-31] MEDS: NEURONTIN 100 MG PO ×2 (07:59→15:34)
[2024-12-31] MEDS: LOW STRENGTH ASPIRIN 81 MG PO (07:59)
[2024-12-31] MEDS: PLAVIX 75 MG PO (07:59)
[2024-12-31] MEDS: PRANDIN 3 MG PO ×2 (07:59→12:31)
[2024-12-31] MEDS: FARXIGA 10 MG PO (07:59)
[2024-12-31] MEDS: GLUCOPHAGE 1000 MG PO (07:59)
[2024-12-31] MEDS: DELTASONE 5 MG PO (08:00)
[2024-12-31] MEDS: BACTROBAN 2% OINTMENT 1 APPLIC NASAL (08:00)
[2024-12-31] MEDS: PACERONE 200 MG PO ×2 (08:00→15:33)
[2024-12-31] MEDS: COREG 3.125 MG PO (08:00)
[2024-12-31] MEDS: NOVOLOG FLEXPEN 5 UNITS SC ×2 (08:01→12:31)
[2024-12-31] MEDS: NOVOLOG FLEXPEN-HIGH RESISTANCE SC (08:01)
[2024-12-31] MEDS: SENOKOT-S PO (08:09)
[2024-12-31] MEDS: LIDOCAINE 4% PATCH TOPICAL (08:09)
--- NOTE | 2024-12-31 08:48 | PTCARENOTE ---
Patient received from night order selector resting oob in chair, AAO x 3, states pain controlled at this time. ZAC Hernández present, d/c's as ordered. All procedural sites stable. Patient and , at bedside, updated to plan of care for the day including
possible d/c home, in agreement. See work list for full assessment and interventions performed.
--- NOTE | 2024-12-31 08:59 | PN.DE.MGMTRT ---
Insulin Management
- -
12/31/2024: Diabetes Management Follow up
Patient admitted 12/21 with CP and SOB, noted for NSTEMI and MVCAD. PMH: HTN, CAD s/p stent placement 3 years ago, HTN, h/o ESRD, s/p kidney transplant and T2DM. Was taking Metformin 1000 mg BID, Repaglinide 3mg TID and Jardiance 10mg daily, INVENTORY CONTROL COORDINATOR. A1C
7.3%, Cr 0.6, eGFR >60
Pt awake, alert, oriented, sitting up in chair, offer no complaints, able to discuss diabetes care plan, at bedside.
Pt was transitioned off insulin infusion to Metformin last night, received Lantus 10 units prior to turning off drip.
Glucose stable and in range since transitioning off drip. FBG 126(V), 97 POC this AM
OP regimen: Farxiga 10mg daily (Jardiance at home) and Repaglinide 3mg TID, and metformin 1000 mg started 12/30. Glucose up to 313 pre lunch requiring 5 units novolog standing and 7 units corrective insulin.
Pre lunch glucose today 286, will increase AC novolog to 8 units and continue 10 units lantus @ hs.with corrective insulin and repaglinide 3 mg AC, Farxiga 10 mg daily and metformin 1000 bid.
Discussed with patient and possibility of needing insulin at discharge, they agree.
Pt has a glucose meter at home with enough testing supplies.
Will cont to follow. Discussed with Nurse.
Diabetes History
- -
Type of Diabetes: 2 requiring insulin
Pre-Admission Diabetes Regimen
12/31/24
04:44
Creatinine 1.2
Lab Results
Hemoglobin A1c Cancelled 12/24/24 17:07
Insulin Pump Settings
IP Diabetes Regimen
12/30/24 12/30/24 12/30/24
12:26 13:38 16:57
Glucose
POC Glucose 313 H 294 H 252 H
02/12/31/24 12/31/24
21:47 02:36 04:44
Glucose 97
POC Glucose 172 H 126 H
12/31/24
07:52
Glucose
POC Glucose 103 H
Meal type: Breakfast
Amount consumed: 100%
Patient Education
--- NOTE | 2024-12-31 09:30 | W.PN.NEPH.PH ---
Today's Communication / Plan
-
Stable for discharge
Recheck tacrolimus trough and BMP this and fax to Dr. Pate nephrology
Assessment/Plan
-
64-year-old male with past medical history significant for hypertension, CAD, NIDDM, and hx ESRD s/p kidney transplant who presented to [facility] ED for evaluation of increased exertional dyspnea over the past few weeks
Renal consult for transplant management and perioperative
Impression.
Renal transplant 2021 living related donor.
Coronary artery disease three-vessel requiring CABG
Hypertension.
Diabetes.
Plan.
follow BMP
FK pending, ~4.2 yesterday
await new FK level from this am
still on amiodarone and increased
follow FK trough later this week
Stable for discharge
creatinine up to 1.2, nonoliguric likely due to low MAP over past 24hr
-
-
Date of Service: December 31, 2024
CC / HPI / ROS
-
Chief Complaint:
Weakness with shortness of breath
History of Present Illness:
s/p CABGx3 12/27
BP stable, off pressors
nonoliguric
Cr at 1.
Review of Systems:
no CP/SOB
Chest tubes
Labs
-
Labs:
WBC 9.5 10^3/uL (4.8-10.8) 12/31/24 04:44
RBC 3.55 10^6/uL (4.70-6.10) L 12/31/24 04:44
Hgb 9.3 g/dL (13.0-18.0) L 12/31/24 04:44
Hct 29.7 % (39.0-52.0) L 12/31/24 04:44
Plt Count 224 10^3/uL (130-400) 12/31/24 04:44
Sodium 136 mmol/L (135-145) 12/31/24 04:44
Potassium 4.3 mmol/L (3.5-5.1) 12/31/24 04:44
Chloride 102 mmol/L (98-107) 12/31/24 04:44
Carbon Dioxide 27 mmol/L (22-30) 12/31/24 04:44
BUN 43 mg/dl (9-20) H 12/31/24 04:44
Creatinine 1.2 mg/dL (0.7-1.3) 12/31/24 04:44
eGFR > 60.00 12/31/24 04:44
Glucose 97 mg/dl (70-99) 12/31/24 04:44
Calcium 8.8 mg/dl (8.4-10.2) 12/31/24 04:44
Ocr-A-Bazqakfanwz Pept 7400 pg/ml 12/24/24 13:40
Albumin 3.5 g/dl (3.5-5.0) 12/26/24 02:12
Physical Exam
-
Vital Signs:
Vital Signs
Temp Pulse Resp BP Pulse Ox
97.6 F 76 17 108/60 100
12/31/24 08:00 12/31/24 08:10 12/31/24 08:00 12/31/24 08:00 12/31/24 08:20
Cardiovascular:: Regular rate and rhythm
Respiratory:: Bilateral: Coarse
Lung Excursion:: Normal
Abdomen:: Nontender and Soft
Bowel Sounds:: Normal
Extremity Edema:: None: Bilateral:
Other Findings::
Chest tubes
--- NOTE | 2024-12-31 10:44 | CM ---
Reviewed chart. Met with and Mrs. Ochoa to review discharge plans. He states he is feeling well and maybe able to go home soon. He states he ambulated in the hallway today. We reviewed a home visit by the Transitional Care Nurse. He is
agreeable to a home visit. Prior to admission he resides with his spouse in two story home with two steps to enter. He has a bedroom/full bathroom on each level. He is planning on staying on the first floor for the first two week. Prior to
admission he was independent with ambulation and adls. He does not have any DME in the home. He has a prescription plan and uses [facility]. His spouse will be home to assist in his care if needed. Medical work-up in progress. The discharge
plan is to return home with his spouse and a home visit by the Transitional Care Nurse when medically stable.
[2024-12-31 11:27] LABS: B.E. - POC 2.3 mmol/L; Glucose - POC 181 mg/dl (70-99); HCO3 - POC 28 mmol/L (21-28); Hematocrit - POC 25 % PCV (42-52); Hemodilution- POC Yes; Hemoglobin Calculated - POC 8.4; Ionized Calcium - POC 1.07 mmol/L (1.15-1.33); Lactate - POC < 0.30 mmol/L (0.36-0.75); O2 Saturation %Calculated-POC 99.9 % (94-98); PCO2 - POC 45 mmHg (35-48); PO2 - POC 315 mmHg (83-108); Potassium - POC 3.9 mmol/L (3.5-5.1); Sodium - POC 139 mmol/L (136-145); Specimen Type - POC Arterial
[2024-12-31 11:51] VITALS: BP 108/54
[2024-12-31] MEDS: NSS IV (11:52)
--- NOTE | 2024-12-31 11:52 | PTCARENOTE ---
VS obtained, assessment stable. Patient remains oob in chair, ordering lunch. Visitors at bedside. Awaiting echo.
[2024-12-31 12:30] LABS: Glucose - Point of Care 286 mg/dl (70-99)
[2024-12-31] MEDS: NOVOLOG FLEXPEN-HIGH RESISTANCE 7 UNITS SC (12:31)
--- NOTE | 2024-12-31 13:02 | W.PN.CD ---
Today's Communication / Plan
-
TTE today
consider low dose valsartan
labs next week
follow up with me in 1 month
Impression / Plan
-
64 year old male with PMH CAD s/p stent placement 3 years ago, HTN, hx kidney transplant who presented with CP and is now seen to have MVD now s/p CABG.
NSTEMI/CAD:
-troponin as high as 1.8
-cath with multivessel CAD
-CT surgery consulted, now s/p CABG with CHARANJIT to LAD, GSV to OM, and GSV to RPDA
-Post op afib
-about 3 hours 12/29/24. Back in NSR
-remains on Amio
-Note that amio can increase Tacrolimus levels. Reviewed with nephrology who is following
-reasonable to avoid anticoagulation given DAPT indication, brief post-op episode <6 hours
-as outpatient will wean amio and then do cardiac monitor technician to ensure no ongoing afib
HFrEF
ICM
-GDMT with dapa, coreg 3.125, no RASS blockade currently
-start low dose valsartan today, BMP next week
-will need further GDMT titration as outpatient
-follow up TTE today and again in 3 months to determine need for PP ICD
-detailed discussion with patient about wearable defibrillator given low EF, NSVT, and recent revasc - ultimately, given good revascularization result, minimal NSVT/PVC burden (single 11 beat run that was monomorphic and relatively slow and
asymptomatic), faovr not sending with a WCD, as risk of SCD is assessed to be very low, patient agrees with plan
Hx renal transplant:
-on anti rejection meds
-nephrology is consulted
DM:
-hgbA1C 7.3
-management per primary
Cath 12/24/24: Dominance: Right. LAD: Large vessel giving rise to 3 moderate caliber diagonal branches. There is a focal severe 95% stenosis in the mid LAD and otherwise mild nonobstructive disease. LCx: 80% stenosis in the ostial circumflex. There
is a widely patent stent in the proximal OM1 branch extending proximally into the proximal circumflex. RCA: serial high grade stenoses in the proximal to mid RCA, high grade ostial disease of the RPDA, moderate disease in the RPAV leading into the
RPL branches. There is competitive flow in the RPL branches from L-R collaterals.
TTE 12/26/2024
Left ventricle is mildly dilated. Severely reduced left ventricular systolic
function.
Left ventricular ejection fraction is 30% by volumetric assessment.
Lateral toney are best preserved, LAD distribution most severely hypokinetic.
Stage II diastolic dysfunction suggestive of abnormal relaxation and increased
filling pressures.
No significant valvular disease.
No prior study available for comparison.
Physical Exam
Vital Signs/Labs
Vital Signs
Temp Pulse Resp BP Pulse Ox
36.6 C 69 16 108/54 99
12/31/24 11:51 12/31/24 11:51 12/31/24 11:51 12/31/24 11:51 12/31/24 11:51
12/30/24 12/31/24 01/01/25
06:59 06:59 06:59
Actual Weight 86.2 kg 85.8 kg
12/31/24 04:44
12/31/24 04:44
PT 17.6 Sec (11.4-14.6) H 12/27/24 13:33
INR 1.42 12/27/24 13:33
APTT 29.7 Sec (23.4-35.0) 12/27/24 13:33
Magnesium 2.5 mg/dl (1.6-2.3) H 12/31/24 04:44
Triglycerides 105 mg/dl (10-149) 12/25/24 04:04
LDL Cholesterol, Calc 75 mg/dl 12/25/24 04:04
VLDL Cholesterol, Calc 21 mg/dl (0-30) 12/25/24 04:04
HDL Cholesterol 26 mg/dl 12/25/24 04:04
12/24/24
13:40
Doh-J-Onlsmnbjmes Pept 7400
Physical Exam
Constitutional: No acute distress
Cardiovascular: Rhythm & rate is regular
Respiratory: Respiratory effort normal
Neuro/Psych: AO x 3
Data Reviewed
-
Date of Service: December 31, 2024
Medical Decision Making: Reviewed Test Results
EKG: Tracing Personally Visualized and interpreted and Report Reviewed by me
Echo: Tracing Personally Visualized and interpreted and Report Reviewed by me
Labs: Labs Reviewed by me
[2024-12-31] MEDS: TYLENOL 1000 MG PO (13:29)
--- NOTE | 2024-12-31 14:55 | W.DCSUMMARY ---
Discharge Summary
Discharge Data
Date of Admission: 12/24/24
Date of Discharge: 12/31/24
Total time spent discharging patient (in min): 35
-
Pending Results: No
Hospital Course
Primary care physician:
None
Outpatient bagger meat:
Dr. Jim
Inpatient consultants:
CBC, production reproduction manager, nephrology
Procedures:
1. CABG x 3 (CHARANJIT to LAD, GSV to OM, GSV to RPDA)
Primary Diagnosis:
1. Non- ST elevated myocardial infarction
Secondary Diagnoses:
1. ICM, LVEF 30% preop
2. HTN
3. HLD
4. DM II, HgA1c 7.3
5. ESRD, s/p renal transplant 11/11/21 (living related donor)
6. Acute postop hypovolemia with postop hypervolemia
7. Suspected acute postop pericarditis/+rub
HPI: Corby Ochoa is a 64-year-old male ([id number]) with past medical history significant for coronary disease with prior OM1 stent in 2020, type 2 diabetes, end-stage renal disease status post living donor renal transplant
in 2021 (on tacrolimus, CellCept, and prednisone), hypertension and hyperlipidemia, who presented to [facility] emergency room on 12/24/2024 with an approximate 3-week history of intermittent exertional dyspnea associated with back and bilateral
underarm pain. R/I for NSTEMI. Heart catheterization reported 3VCAD. Nephrology ywas consulted pre-op and no changes made to immunosupression therapy as Tacrolimus level was therapeutic @ 7.4.
Hospital course: Patient was admitted to the hospital on 12/24. Left heart cath revealed multivessel disease and CT surgery was consulted. Patient was taken to the CV OR 12/27 and returned to the CVICU for the remainder of his recovery on
dobutamine, Levophed, insulin, and Precedex. Precedex was weaned off and patient was extubated by 1553. On 12/28 postoperative day 1 patient was weaned slowly from dobutamine to 3.5 and levo was weaned to 1. Dobutamine was later weaned off
throughout the day. Perris-Keena catheter was removed along with Briggs catheter. On 12/29 postoperative day 2 patient's Levophed was weaned off patient was diuresed with 20 mg of IV Lasix. Patient also developed a short episode of atrial fibrillation
lasting 3.5 hours and after an amiodarone bolus and infusion patient converted back into sinus rhythm. On 12/30 postoperative day 3 patient was transitioned off his insulin infusions however later in the day he was found to be hyperglycemic and
subcutaneous insulin was adjusted. He was diuresed with 40 mg of IV Lasix and chest tubes were discontinued. On 12/31 postoperative day 4 patient had a 10 beat run of nonsustained ventricular tachycardia and was asymptomatic. Electrolytes were
repleted. Arrhythmia was reviewed with cardiology and he was deemed stable for discharge home after repeat echo showed that his ejection fraction was unchanged. 2 view chest x-ray showed a trace pleural effusion and he will be discharged with oral
diuretics.
Home medication changes:
See below
Discharge Plan
-
Patient Disposition: Home (Routine Discharge)
Discharge Diagnosis/Procedures: CABG x 3 (CHARANJIT to LAD, GSV to OM, GSV to RPDA)
Condition: Good
Diet: Low Cholesterol and 2 Gram Sodium
Activity: No strenuous activity
Driving Restrictions: No driving for 24 hours
Bathing Restrictions: OK to Shower
Blood Work: BMP and tacrolimus trough level in 1 week
Other Services: Cardiac Rehab
Specialty Instructions: Weigh Daily- Call MD for wt gain/loss 3 lbs overnight/5 lbs in 1 week
Activity Restrictions/Additional Instructions:
ACTIVITY:
-No strenuous activity: no heavy lifting, pushing, pulling anything over 15 pounds for one month
-continue to use stairs as tolerated
DRIVING RESTRICTIONS:
-No driving for one month or until approved by your surgeon
WOUND CARE:
-Shower daily. Use soap & water.
-No lotions, creams or powders on incision area.
DIET:
-continue a low fat/low cholesterol diet.
-IF you are diabetic, continue carb controlled diet.
CARDIAC REHAB:
-Please make appointment to start in 5-6 weeks with your local hospital program. (See Cardiac Rehabilitation Discharge Booklet).
SPECIALTY INSTRUCTIONS:
-Weigh yourself daily. Call your physician for any weight gain/loss of 3 lbs overnight or 5 lbs in one week.
-REPORT any clicking noise or uneven appearance of your sternum to your surgeon immediately.
-If you smoke, you are instructed to quit. The [place] smoking hotline phone number is [phone]
Referrals:
CT Transitional Care Nurse [Outside] - in one to two days
(
The Cardiothoracic Transitional Care Nurse will call you to set up a visit in 1-2 days.)
[facility]. Cardiac Rehab [Outside] - 02/04/25 1:00 pm
(Cardiac Rehab Orientation appointment is on Tuesday February 04, 2025 @ 1:00pm.
The Cardiac Rehab gym is located on the first floor of the [facility].)
Melissa Forman CRNP [Specified Professional Personl] - 02/03/25 10:40 am
Daron Elkins MD [Active] - 01/21/25 3:30 pm
UNKNOWN - PT DOES,NOT KNOW [Family Provider] -
Additional Discharge Medication Instructions: PLease take your amiodarone 200mg twice a day for 14 days and then 200mg daily
you will be on plavix for 1 year total
please note that your dose of coreg has changed
Please check your blood pressure before taking your blood pressure medications.
Prescriptions:
New
carvedilol 3.125 mg Tablet
3.125 mg PO BID Qty: 60 2RF
rosuvastatin 40 mg Tablet
40 mg PO QPM Qty: 30 2RF
acetaminophen 325 mg Tablet
650 mg PO Q4HPRN PRN (Reason: mild pain,headache,temp >101F ) Qty: 0 0RF
pantoprazole 40 mg Tablet,Delayed Release (Dr/Ec)
40 mg PO DAILY Qty: 30 1RF
cyclobenzaprine 10 mg Tablet
5 mg PO Q8HPRN PRN (Reason: muscle spasm) Qty: 30 1RF
amiodarone 200 mg Tablet
200 mg PO TID Qty: 90 0RF
gabapentin 100 mg Capsule
100 mg PO TID Qty: 60 0RF
oxycodone 5 mg Tablet
2.5 mg PO Q4HPRN PRN (Reason: severe pain) Qty: 10 0RF
clopidogrel 75 mg Tablet
75 mg PO DAILY Qty: 90 3RF
insulin aspart U-100 100 unit/mL (3 mL) Insulin Pen
8 unit SC AC Qty: 15 0RF
insulin glargine [Lantus Solostar U-100 Insulin] 100 unit/mL (3 mL) insulin pen
10 unit SC QPM Qty: 15 0RF
furosemide [Lasix] 40 mg tablet
40 mg PO DAILY Qty: 7 0RF
potassium chloride 20 mEq tablet extended release
20 meq PO DAILY Qty: 7 0RF
Continued
mycophenolate mofetil 250 mg Capsule
500 mg PO BID@629,1829
losartan 25 mg Tablet
25 mg PO DAILY
cholecalciferol (vitamin D3) [Vitamin D3] 25 mcg (1,000 unit) Tablet
25 mcg PO NOON
metformin 500 mg Tablet
1,000 mg PO BID Qty: 0 0RF
prednisone 5 mg Tablet
5 mg PO DAILY Qty: 0 0RF
aspirin 81 mg Tablet,Delayed Release (Dr/Ec)
81 mg PO DAILY Qty: 0 0RF
repaglinide 1 mg Tablet
3 mg PO TID Qty: 0 0RF
tacrolimus 1 mg Capsule,Extended Release 24hr
1 mg PO DAILY@0600 Qty: 0 0RF
Rx Instructions:
with 1.5mg for total = 2.5mg daily
Jardiance 10 mg Tablet
10 mg PO DAILY Qty: 0 0RF
tacrolimus 0.75 mg Tablet Extended Release 24 Hr
1.5 mg PO DAILY@0600 Qty: 0 0RF
Rx Instructions:
with 1mg for total = 2.5mg daily
magnesium oxide 400 mg magnesium Tablet
400 mg PO BID Qty: 0 0RF
Discontinued
carvedilol 3.125 mg Tablet
6.25 mg PO Q12H
rosuvastatin 5 mg Tablet
5 mg PO QPM
Discharge Orders:
Discharge Patient (As Directed); Ordered 12/31/24
Ordered By: Ruth Delgado
Care Plan Goals
Care Plan Goals:
Problem: Readiness for enhanced knowledge related to diagnosis and treatment plan
Goal: Understand your diagnosis and treatment plan needs, including medications if applicable.
Instructions: Know your diagnosis, underlying causes and treatment plan options, including medications if applicable. Consult with your health care team to learn about your diagnosis and treatment plan, including medications if applicable.
Discharge Date and Time
Print Language: MAORI
[2024-12-31 15:42] VITALS: BP 101/54
--- NOTE | 2024-12-31 16:27 | PN.CDI ---
CDI
- -
CDI:
Physician Documentation Request
Admit Date: 12/24/24 17:03
Dear Doctor Severo/DAX,
Please review the following and provide your response in the progress notes.
Clinical Indicators:
Pt admitted with NSTEMI /CAD/Acute Systolic CHF s/p CABG
Renal functions are as below
Nephrology progress note 12/31, ' creatinine up to 1.2, nonoliguric likely due to low MAP over past 24hr..'
12/26/24 12/28/24 12/30/24
02:12 04:14 04:05
Creatinine 0.7 0.8 0.9
12/31/24
04:44
Creatinine 1.2
Clarify which of the following accurately represents the patient's renal status:
ALFREDO
Insignificant lab value only
Other ( please specify)
Criteria for ALFREDO*
1 Increase in serum creatinine by > or = to 0.3 mg/dL (> or = to 26.5 micromol/L) within 48 hours, OR
2 Increase in serum creatinine to > or = to 1.5 times baseline, which is known or presumed to have occurred within 7 days, OR
3 Urine volume < 0.5 nL/kg/hour for six hours
Use of terms such as suspected, likely, concern for, or probable (associated with a specific diagnosis that is being evaluated, monitored, or treated as if it exists) are acceptable and can be coded in the inpatient setting, when documented at the
time of discharge.
Thank you,
Nori Underwood RN
CDI Specialist
[place] Text
Please use your independent medical judgment in providing your response.
*Source: Kidney Disease: Improving Global Outcomes (KDIGO) 2012
--- NOTE | 2024-12-31 16:38 | W.PN.UPDATE ---
Update Note
Progress Note Update
Response to CDI Query:
Insignificant lab value only
--- NOTE | 2024-12-31 17:01 | PTCARENOTE ---
Pt showered self with CHG; door repairman removed and IV removed; discharge paperwork gone over with pt and ; all questions answered; pt discharge in wheel chair to car.
== END 2024-12-31 16:58 | disposition home or self-care (01) | DRG 233 ==
LOC: CVICU 17:03
PROVIDERS: Emergency Medicine; Nurse Practitioner; Nurse Practitioner Family; Physician Assistant Medical; Physician Assistant Surgical; Specialist; Student in an Organized Health Care Education/Training Program; ADMITTING PHYSICIAN Internal Medicine; ATTENDING PHYSICIAN Thoracic Surgery (Cardiothoracic Vascular Surgery); CONSULT PHYSICIAN Internal Medicine; CONSULT PHYSICIAN Internal Medicine Cardiovascular Disease; CONSULT PHYSICIAN Internal Medicine Nephrology; CONSULT PHYSICIAN Thoracic Surgery (Cardiothoracic Vascular Surgery); EMERGENCY PHYSICIAN Student in an Organized Health Care Education/Training Program
PROC: 4A023N7 Measurement of Cardiac Sampling and Pressure, Left Heart, Percutaneous Approach (ICD-10-PCS; 2024-12-24)
PROC: B2111ZZ Fluoroscopy of Multiple Coronary Arteries using Low Osmolar Contrast (ICD-10-PCS; 2024-12-24)
PROC: B24BZZ4 Ultrasonography of Heart with Aorta, Transesophageal (ICD-10-PCS; 2024-12-27)
PROC: 06BP4ZZ Excision of Right Saphenous Vein, Percutaneous Endoscopic Approach (ICD-10-PCS; 2024-12-27)
PROC: 02100ZC Bypass Coronary Artery, One Artery from Thoracic Artery, Open Approach (ICD-10-PCS; 2024-12-27)
PROC: 5A1221Z Performance of Cardiac Output, Continuous (ICD-10-PCS; 2024-12-27)
PROC: 0211093 Bypass Coronary Artery, Two Arteries from Coronary Artery with Autologous Venous Tissue, Open Approach (ICD-10-PCS; 2024-12-27)
PROC: 03JY0ZZ Inspection of Upper Artery, Open Approach (ICD-10-PCS; 2024-12-27)
DX: I21.4 Non-ST elevation (NSTEMI) myocardial infarction (principal); I50.23 Acute on chronic systolic (congestive) heart failure; D84.821 Immunodeficiency due to drugs; Z94.0 Kidney transplant status; D62 Acute posthemorrhagic anemia; J98.11 Atelectasis; I31.9 Disease of pericardium, unspecified; I97.190 Other postprocedural cardiac functional disturbances following cardiac surgery; I47.20 Ventricular tachycardia, unspecified; I25.10 Atherosclerotic heart disease of native coronary artery without angina pectoris; E78.00 Pure hypercholesterolemia, unspecified; I11.0 Hypertensive heart disease with heart failure; E11.65 Type 2 diabetes mellitus with hyperglycemia; E86.1 Hypovolemia; I48.91 Unspecified atrial fibrillation; Y83.2 Surgical operation with anastomosis, bypass or graft as the cause of abnormal reaction of the patient, or of later complication, without mention of misadventure at the time of the procedure; Y92.239 Unspecified place in hospital as the place of occurrence of the external cause; Z79.624 Long term (current) use of inhibitors of nucleotide synthesis; Z79.84 Long term (current) use of oral hypoglycemic drugs; Z79.82 Long term (current) use of aspirin; Z79.621 Long term (current) use of calcineurin inhibitor; Z11.52 Encounter for screening for COVID-19; Z95.5 Presence of coronary angioplasty implant and graft; I25.2 Old myocardial infarction; Z90.49 Acquired absence of other specified parts of digestive tract; Z87.442 Personal history of urinary calculi; Z82.5 Family history of asthma and other chronic lower respiratory diseases; Z82.49 Family history of ischemic heart disease and other diseases of the circulatory system; Z83.3 Family history of diabetes mellitus
CPT/HCPCS: 93308; 71045; 71046; 71250; 76937; 80048; 80053; 80061; 80197; 81003; 81015; 82330; 82565; 82805; 82947; 82962; 83036; 83735; 83880; 84132; 84302; 84484; 84520; 85014; 85018; 85025; 85027; 85049; 85379; 85610; 85730; 86850; 86900; 86901; 86920; 87502; 87811; 93005; 93306; 93312; 93320; 93325; 93458; 93880; 93923; 93931; 94002; 96374; 99152; 99153; 99291; C1713; C1894; P9045; Q9967

== ENCOUNTER 2025-01-20 16:24 | Emergency (ER) | payer OTHER, SELFPAY ==
[2025-01-20 16:26] VITALS: BP 133/84
[2025-01-20 16:44] VITALS: BP 152/112
[2025-01-20 17:00] VITALS: BP 127/77
--- NOTE | 2025-01-20 17:07 | ED.GENMED ---
History of Present Illness
General
Chief Complaint: Heart Rate Problem
Source: patient and spouse
Exam Limitations: none
Time Seen by Provider: 01/20/25 16:52
Nursing documentation reviewed up to this point in time: agreed with
History of Present Illness
History of Present Illness:
Patient status post CABG 3 weeks ago, who developed transient episode of atrial fibrillation on postop day #3, currently on amiodarone 200 mg daily, as well as aspirin/Plavix, presents to ED secondary to recurrent palpitations, along with
dizziness/shortness of breath, when he woke up from taking a nap this afternoon, around 2:15 PM. Patient states that cell phone ringing woke him up. Denies chest pain. Denies nausea or vomiting. Denies diaphoresis. Patient states that he has
been feeling well, with normal diet and enough water during the day. Patient's medical history of significant CAD, as well as kidney transplant.
Past History
Past History
ED Past Medical History: CAD, HTN, NIDDM, Renal failure and Other (Kidney transplant)
ED Past Surgical History: Other (Kidney transplant)
Social History
Tobacco: Non-smoker
Alcohol: None
Review of Systems
Review of Systems
Allergies reviewed?: Yes
All Other Systems: ROS reviewed and negative except as documented in HPI and ROS
Constitutional: Reports no symptoms
Respiratory: Reports trouble breathing
Cardiac: Reports palpitations; Denies chest pain, diaphoresis or syncope
ABD/GI: Reports no symptoms
Musculoskeletal: Reports no symptoms
Skin: Reports no symptoms
Neurological: Reports dizzy
Phy Exam
Physical Exam
Physical Exam:
Physical Exam
General: no apparent distress, not acutely ill. afebrile
Head: nc/at. eomi
Neck: supple. normal range of motion.
Heart: irregularly irregular, tachycardic, no murmur.
Lungs: no acute respiratory distress. clear bilaterally
Abdomen: normal bowel sounds. not tender.
Neuro: alert and oriented x 3. no focal neurological deficits
Skin: no rash
Psychiatric: well kept. interactive and cooperative
Extremities: no edema. no calf tenderness.
Course
Orders/Labs/Results
Orders:
Orders
01/20/25 16:29
Electrocardiogram (*1) Urgent
Reason for Study: Tachycardia
01/20/25 16:30
EKG- Treatment ONCE
01/20/25 16:53
CMP [Comprehensive Metabolic Panel] Urgent
Complete Blood Count/With Diff Urgent
Free T4 Urgent
Magnesium Urgent
TSH Reflex To Free T4 Urgent
Comment: ADD ON
01/20/25 17:04
Diltiazem HCl [Cardizem] 20 mg IV NOW STA
01/20/25 17:15
Diltiazem 125 mg/125 ml Nss [Cardizem] 125 mg in 125 ml IV PER PROTOCOL
Initial dose in mg/hr, then titrate:: 5
Titrate to keep:: Heart rate 80-100 bpm
Titrate by mg/hr:: 5 mg/hr
Frequency of titrations (minutes):: 15
Maximum dose in mg/hr:: 15
01/20/25 17:31
Add On- LAB Urgent
Tests Added?: magnesium, TSH to reflex free T4
01/20/25 18:06
0.9% Sodium Chloride 250 ml [Nss] 250 ml IV BOLUS
Diltiazem HCl [Cardizem] 20 mg IV NOW STA
01/20/25 18:29
EKG [Electrocardiogram (*1)] Urgent
Reason for Study: Atrial Fibrillation
EKG- Treatment ONCE
01/20/25 19:06
EKG [Electrocardiogram (*1)] Urgent
Reason for Study: Abnormal EKG
EKG- Treatment ONCE
01/20/25 19:27
Apixaban [Eliquis] 5 mg PO NOW STA
Abnormal Lab Results
01/20/25
16:53
RBC 4.45 L 10^6/uL
(4.70-6.10)
Hgb 11.6 L g/dL
(13.0-18.0)
Hct 36.6 L %
(39.0-52.0)
MCH 26.1 L pg
(27.0-31.0)
MCHC 31.7 L g/dL
(33.0-37.0)
RDW 14.8 H %
(11.5-14.5)
Absolute Lymphs (auto) 0.6 L 10^3/uL
(1.2-3.4)
Neutrophils % 80.8 H %
(42.2-75.2)
Lymphocytes % 7.8 L %
(20.5-51.1)
Sodium 134 L mmol/L
(135-145)
Glucose 174 H mg/dl
(70-99)
TSH (Reflex) 10.70 H uIU/ml
(0.47-4.68)
01/20/25 16:53
01/20/25 16:53
Vital Signs
Initial and Last Documented VS:
Initial Vital Signs
Temp Pulse Resp BP Pulse Ox
97.8 F 129 18 133/84 100
01/20/25 16:26 01/20/25 16:26 01/20/25 16:26 01/20/25 16:26 01/20/25 16:26
Last Documented Vital Signs
Temp Pulse Resp BP Pulse Ox
97.8 F 56 19 115/55 99
01/20/25 16:26 01/20/25 19:30 01/20/25 19:30 01/20/25 19:03 01/20/25 19:15
MDM/Problems Addressed
MDM/Problems Addressed:
History, exam, and EKG consistent with rapid a flutter. Patient after initial evaluation, started on IV fluids, Cardizem bolus followed by Cardizem infusion.
During treatment with Cardizem infusion, patient noted to convert spontaneously to sinus rhythm, confirmed by repeat EKG. Patient also states that he no longer has any sensation of fluttering nor dizziness.
Discussed with on-call cardiology, Dr. Parker. Agrees with plan to discharge patient home, with follow recommendations: increase carvedilol to 6.25 mg twice daily, discontinue Plavix, Eliquis 5 mg twice daily. Advised cardiology follow-up with
his primary special weapons unit officer, Dr. Solo.
Patient and spouse expressed understanding at time of discharge.
Critical care statement: A total of 40 minutes of critical care time was provided for this patient. This includes management of unstable vital signs, evaluation of the patient at bedside, reviewing the patient's pertinent medical records, discussion
with consultants, review of old EKGs and review of pertinent medical records. This time with separate from time utilized to perform the aforementioned documented procedures
*Critical Care Note
Total Time (30-74mins, 75-104mins- exclusive of procedures): 40 min
ED Attending Note
-
Portions of this chart may have been created with voice recognition software.� Occasional wrong word or��sound alike� substitutions may have occurred due to the inherent limitations of voice recognition software.
Discharge Plan
Departure
Patient Disposition: Home (Routine Discharge)
Date of Disposition: 01/20/25
Time of Disposition: 19:37
Patient with high blood pressure during this ER visit?: Yes
Condition: Fair
Discharge Problem:
Atrial flutter
Instructions: Atrial flutter - Discharge instructions
Prescriptions:
New
Eliquis 5 mg tablet
5 mg PO BID Qty: 60 0RF
No Action
mycophenolate mofetil 250 mg Capsule
500 mg PO BID@0630,1830
losartan 25 mg Tablet
25 mg PO DAILY
cholecalciferol (vitamin D3) [Vitamin D3] 25 mcg (1,000 unit) Tablet
25 mcg PO DAILY
carvedilol 3.125 mg Tablet
3.125 mg PO BID Qty: 60 2RF
pantoprazole 40 mg Tablet,Delayed Release (Dr/Ec)
40 mg PO DAILY Qty: 30 1RF
metformin 500 mg Tablet
1,000 mg PO BID Qty: 0 0RF
prednisone 5 mg Tablet
5 mg PO DAILY Qty: 0 0RF
aspirin 81 mg Tablet,Delayed Release (Dr/Ec)
81 mg PO DAILY Qty: 0 0RF
Jardiance 10 mg Tablet
10 mg PO DAILY Qty: 0 0RF
magnesium oxide 400 mg magnesium Tablet
400 mg PO BID Qty: 0 0RF
clopidogrel 75 mg Tablet
75 mg PO DAILY Qty: 90 3RF
rosuvastatin 5 mg Tablet
5 mg PO QPM
tacrolimus 1 mg Tablet Extended Release 24 Hr
1 mg PO DAILY
Rx Instructions:
with 1.5mg for total = 2.5mg daily
amiodarone 200 mg tablet
200 mg PO DAILY
gabapentin 100 mg capsule
100 mg PO DAILY
repaglinide 1 mg tablet
3 mg PO AC
tacrolimus 0.75 mg tablet extended release 24 hr
1.5 mg PO DAILY
Rx Instructions:
with 1mg for total = 2.5mg daily
Referrals:
Beck Solo MD [Active] -
UNKNOWN - PT DOES,NOT KNOW [Family Provider] -
Activity Restrictions/Additional Instructions:
As discussed, please follow-up with your special weapons unit officer for reevaluation. Your prescription has been sent electronically to [facility] pharmacy in [place].
Interventions
Interventions:
*Risk Screen - Suicide Last Done: 01/20/25 16:26
*General Assessment Last Done: 01/20/25 16:26
*Neglect/Abuse Screening Last Done: 01/20/25 16:26
*ED- Fall Risk Assessment Last Done: 01/20/25 16:58
*ED COVID-19 Vaccine History Last Done: 01/20/25 16:43
*Nursing Disposition Last Done: 01/20/25 19:45
ED- Cardiac Assessment Last Done: 01/20/25 16:57
ED- Pulmonary Assessment Last Done: 01/20/25 16:57
Discharge Date and Time
Discharge Date/Time: 01/20/25 19:46
Print Language: BHUTANESE
[2025-01-20] MEDS: CARDIZEM 125 IV (17:09)
[2025-01-20] MEDS: CARDIZEM 20 MG IV ×2 (17:09→18:15)
[2025-01-20 17:11] LABS: % Basophils 0.5 % (0-2); % Eosinophils 3.2 % (0-6); % Immature Granulocytes 0.5 % (0-0.5); % Lymphocytes 7.8 % (20.5-51.1); % Monocytes 7.2 % (1.7-9.3); % Neutrophils 80.8 % (42.2-75.2); Absolute Eosinophils 0.3 10^3/uL (0-0.7); Absolute Lymphocytes 0.6 10^3/uL (1.2-3.4); Absolute Monocytes 0.6 10^3/uL (0.1-0.6); Absolute Neutrophils 6.3 10^3/uL (1.4-6.5); Hematocrit 36.6 % (39.0-52.0); Hemoglobin 11.6 g/dL (13.0-18.0); Mean Corp Hgb Conc. 31.7 g/dL (33.0-37.0); Mean Corpuscular Hgb 26.1 pg (27.0-31.0); Mean Corpuscular Volume 82.2 fL (80.0-94.0); Mean Platelet Volume 9.1 fL (7.4-10.4); Nucleated Red Blood Cells % 0 % (-); Platelet Count 377 10^3/uL (130-400); Red Blood Cell Count 4.45 10^6/uL (4.70-6.10); Red Cell Dist. Width 14.8 % (11.5-14.5); White Blood Cell Count 7.7 10^3/uL (4.8-10.8)
[2025-01-20 17:24] LABS: ALT (SGPT) 12 U/L (0-50); AST (SGOT) 18 U/L (17-59); Albumin 4.6 g/dl (3.5-5.0); Alkaline Phosphatase 79 U/L (38-126); Blood Urea Nitrogen 18 mg/dl (9-20); Calcium 9.6 mg/dl (8.4-10.2); Carbon Dioxide 25 mmol/L (22-30); Chloride 98 mmol/L (98-107); Glucose 174 mg/dl (70-99); Potassium 5.1 mmol/L (3.5-5.1); Sodium 134 mmol/L (135-145); Total Bilirubin 1.1 mg/dl (0.2-1.3); Total Protein 6.7 g/dl (6.3-8.2); eGFR > 60.00
[2025-01-20 17:54] LABS: Magnesium 1.7 mg/dl (1.6-2.3)
[2025-01-20 18:00] VITALS: BP 132/84
[2025-01-20] MEDS: NSS 250 IV (18:15)
[2025-01-20 19:00] VITALS: BP 128/53
[2025-01-20 19:03] VITALS: BP 115/55
[2025-01-20] MEDS: ELIQUIS 5 MG PO (19:29)
[2025-01-20 19:32] LABS: Free T4 1.52 ng/dl (0.78-2.19)
== END 2025-01-20 19:46 | disposition home or self-care (01) ==
LOC: EMR 16:24
PROVIDERS: EMERGENCY PHYSICIAN Emergency Medicine
DX: I48.92 Unspecified atrial flutter (principal); I48.91 Unspecified atrial fibrillation; E11.9 Type 2 diabetes mellitus without complications; I25.10 Atherosclerotic heart disease of native coronary artery without angina pectoris; I10 Essential (primary) hypertension; Z94.0 Kidney transplant status; Z79.02 Long term (current) use of antithrombotics/antiplatelets; Z95.1 Presence of aortocoronary bypass graft; Z79.899 Other long term (current) drug therapy; Z79.82 Long term (current) use of aspirin
CPT/HCPCS: 96374; 96376; 99291; 80053; 83735; 84439; 84443; 85025; 93005

== ENCOUNTER 2025-02-04 11:15 | Outpatient (RCR) | payer OTHER, SELFPAY ==
[2025-02-04 12:27] LABS: Glucose - Point of Care 143 mg/dl (70-99)
[2025-02-04 12:57] LABS: Glucose - Point of Care 136 mg/dl (70-99)
== END 2025-02-04 23:59 | disposition home or self-care (01) ==
LOC: CRHB 11:15
PROVIDERS: ATTENDING PHYSICIAN Student in an Organized Health Care Education/Training Program; FAMILY PHYSICIAN Nurse Practitioner Adult Health
DX: I21.4 Non-ST elevation (NSTEMI) myocardial infarction (principal); Z95.1 Presence of aortocoronary bypass graft
CPT/HCPCS: 82962; 93798

== ENCOUNTER → 2025-03-26 08:01 | Outpatient (REF) | payer OTHER, SELFPAY | LOC: HWRCS 08:01 | PROVIDERS: ATTENDING PHYSICIAN Student in an Organized Health Care Education/Training Program; FAMILY PHYSICIAN Nurse Practitioner Family | DX: I48.0 Paroxysmal atrial fibrillation (principal) | CPT/HCPCS: 93308 ==

== ENCOUNTER 2025-04-02 08:58 | Emergency (ER) | payer OTHER, SELFPAY ==
[2025-04-02 09:09] VITALS: BP 167/79
[2025-04-02 09:52] VITALS: BP 144/49
[2025-04-02 10:00] VITALS: BP 128/61
--- NOTE | 2025-04-02 10:32 | ED.GENMED ---
History of Present Illness
General
Chief Complaint: Throat Problem
Source: patient
Exam Limitations: none
Time Seen by Provider: 04/02/25 09:54
History of Present Illness
History of Present Illness:
64-year-old male presents complaining of increasing swelling and pain to the right side of the throat for the past 2 to 3 days. No fever. No shortness of breath. He states his giving him difficulty swallowing and affecting his voice. No chills
or sweats. He is a kidney transplant patient followed at [facility]. He is on Eliquis. Couple months ago he had a three-vessel bypass surgery in his heart.
Past History
Past History
ED Past Medical History: CAD, HTN, NIDDM, Renal failure and Other (Kidney transplant)
ED Past Surgical History: Other (Kidney transplant)
Social History
Tobacco: Non-smoker
Alcohol: None
Phy Exam
Physical Exam
Physical Exam:
General: Well-appearing nontoxic male no acute respiratory distress HEENT: Normocephalic atraumatic
Posterior pharynx is asymmetric there is worse on the right. The swelling on the right peritonsillar area is abutting the uvula. Neck is supple no adenopathy no trismus or drooling
Heart: Regular rate and rhythm
Lungs: Clear no wheeze
Extremities: No cyanosis or edema
Course
Orders/Labs/Results
Orders:
Orders
04/02/25 10:45
Complete Blood Count/With Diff Urgent
Comprehensive Metabolic Panel Urgent
04/02/25 10:46
CefTRIAXone [Rocephin] 1,000 mg IV NOW STA
04/02/25 10:57
Rapid Strep Group A Urgent
TOSHA Source: Throat/Pharynx
Specimen Description:
Date Specimen was Collected: 04/02/25
Time Specimen was Collected: 10:56
Abnormal Lab Results
04/02/25
10:45
Hgb 12.8 L g/dL
(13.0-18.0)
MCV 78.7 L fL
(80.0-94.0)
MCH 25.2 L pg
(27.0-31.0)
MCHC 32.1 L g/dL
(33.0-37.0)
RDW 14.7 H %
(11.5-14.5)
Abs Immat Gran (auto) 0.1 H 10^3/uL
(0-0.05)
Absolute Neuts (auto) 8.2 H 10^3/uL
(1.4-6.5)
Absolute Lymphs (auto) 0.5 L 10^3/uL
(1.2-3.4)
Absolute Monos (auto) 1.0 H 10^3/uL
(0.1-0.6)
Neutrophils % 82.2 H %
(42.2-75.2)
Lymphocytes % 5.2 L %
(20.5-51.1)
Monocytes % 10.3 H %
(1.7-9.3)
Carbon Dioxide 31 H mmol/L
(22-30)
BUN 24 H mg/dl
(9-20)
Glucose 145 H mg/dl
(70-99)
AST 16 L U/L
(17-59)
04/02/25 10:45
04/02/25 10:45
Vital Signs
Initial and Last Documented VS:
Initial Vital Signs
Temp Pulse Resp BP Pulse Ox
97.8 F 75 16 167/79 100
04/02/25 09:09 04/02/25 09:09 04/02/25 09:09 04/02/25 09:09 04/02/25 09:09
Last Documented Vital Signs
Temp Pulse Resp BP Pulse Ox
97.8 F 71 16 162/67 98
04/02/25 09:09 04/02/25 12:00 04/02/25 09:09 04/02/25 12:00 04/02/25 12:30
MDM/Problems Addressed
Differential Diagnosis Includes:
Patient with sore throat and asymmetry on the exam. Concern for possible peritonsillar abscess. No respiratory distress. He is anticoagulated on Eliquis. He is a kidney transplant patient.
Discussed with ENT. Decadron ordered. Will start Rocephin. ENT to see the patient here. Hold off on imaging as he was told to avoid any imaging studies with IV contrast. He is in no respiratory distress currently
*Critical Care Note
Total Time (30-74mins, 75-104mins- exclusive of procedures): Not Applicable
Update Note
Update Note:
Patient seen and evaluated by ENT. He feels there is no abscess to drain we will treat for tonsillitis. He received Rocephin IV here and will be discharged on Augmentin. Explained these findings verbally however there is no ability to written
paperwork upon discharge as the [employer] system was down unexpectedly.
ED Attending Note
-
Portions of this chart may have been created with voice recognition software.� Occasional wrong word or��sound alike� substitutions may have occurred due to the inherent limitations of voice recognition software.
Discharge Plan
Departure
Patient Disposition: Home (Routine Discharge)
Patient with high blood pressure during this ER visit?: No
Discharge Problem:
Acute bacterial tonsillitis
Prescriptions:
No Action
mycophenolate mofetil 250 mg Capsule
500 mg PO BID@0630,1830
losartan 25 mg Tablet
25 mg PO DAILY
cholecalciferol (vitamin D3) [Vitamin D3] 25 mcg (1,000 unit) Tablet
25 mcg PO DAILY
metformin 500 mg Tablet
1,000 mg PO BID Qty: 0 0RF
prednisone 5 mg Tablet
5 mg PO DAILY Qty: 0 0RF
aspirin 81 mg Tablet,Delayed Release (Dr/Ec)
81 mg PO DAILY Qty: 0 0RF
Jardiance 10 mg Tablet
10 mg PO DAILY Qty: 0 0RF
magnesium oxide 400 mg magnesium Tablet
400 mg PO BID Qty: 0 0RF
repaglinide 1 mg tablet
3 mg PO AC
Eliquis 5 mg tablet
5 mg PO BID Qty: 60 0RF
carvedilol [Coreg] 6.25 mg Tablet
6.25 mg PO BID
acetaminophen [Tylenol Ex Str Arthritis Pain] 500 mg Tablet
1,000 mg PO Q6HPRN PRN (Reason: mild pain)
rosuvastatin [Crestor] 10 mg Tablet
10 mg PO QPM
Envarsus XR 0.75 mg Tablet Extended Release 24 Hr
1.5 mg PO DAILY@0630
Envarsus XR 1 mg Tablet Extended Release 24 Hr
1 mg PO DAILY@0630
Referrals:
Beronica Rodriguez CRNP [Family Provider]
Activity Restrictions/Additional Instructions:
Please return here for increasing sore throat fever trouble swallowing or breathing. Follow-up your doctor otherwise
Interventions
Interventions:
*Risk Screen - Suicide Last Done: 04/02/25 09:11
*General Assessment Last Done: 04/02/25 12:00
*Neglect/Abuse Screening Last Done: 04/02/25 09:11
*ED- Fall Risk Assessment Last Done: 04/02/25 10:48
*ED COVID-19 Vaccine History Last Done: 04/02/25 10:48
*Nursing Disposition Last Done: 04/02/25 16:18
ED-EENT Assessment Last Done: 04/02/25 12:00
ED- Pulmonary Assessment Last Done: 04/02/25 12:00
Discharge Date and Time
Discharge Date/Time: 04/02/25 12:45
Print Language: SINGAPOREAN
[2025-04-02 10:47] VITALS: BMI 24.8
[2025-04-02] MEDS: ROCEPHIN 1000 MG IV (10:51)
[2025-04-02 10:55] LABS: % Basophils 0.2 % (0-2); % Eosinophils 1.6 % (0-6); % Immature Granulocytes 0.5 % (0-0.5); % Lymphocytes 5.2 % (20.5-51.1); % Monocytes 10.3 % (1.7-9.3); % Neutrophils 82.2 % (42.2-75.2); Absolute Eosinophils 0.2 10^3/uL (0-0.7); Absolute Immature Granulocytes 0.1 10^3/uL (0-0.05); Absolute Lymphocytes 0.5 10^3/uL (1.2-3.4); Absolute Neutrophils 8.2 10^3/uL (1.4-6.5); Hematocrit 39.9 % (39.0-52.0); Hemoglobin 12.8 g/dL (13.0-18.0); Mean Corp Hgb Conc. 32.1 g/dL (33.0-37.0); Mean Corpuscular Hgb 25.2 pg (27.0-31.0); Mean Corpuscular Volume 78.7 fL (80.0-94.0); Mean Platelet Volume 9.1 fL (7.4-10.4); Nucleated Red Blood Cells % 0 % (-); Platelet Count 217 10^3/uL (130-400); Red Blood Cell Count 5.07 10^6/uL (4.70-6.10); Red Cell Dist. Width 14.7 % (11.5-14.5); White Blood Cell Count 9.9 10^3/uL (4.8-10.8)
[2025-04-02 11:00] VITALS: BP 147/64
[2025-04-02 11:15] LABS: ALT (SGPT) 12 U/L (0-50); AST (SGOT) 16 U/L (17-59); Albumin 4.1 g/dl (3.5-5.0); Alkaline Phosphatase 52 U/L (38-126); Blood Urea Nitrogen 24 mg/dl (9-20); Calcium 9.5 mg/dl (8.4-10.2); Carbon Dioxide 31 mmol/L (22-30); Chloride 104 mmol/L (98-107); Estimated Creatinine Clearance 98 ml/min; Glucose 145 mg/dl (70-99); Potassium 4.2 mmol/L (3.5-5.1); Sodium 140 mmol/L (135-145); Total Bilirubin 1.1 mg/dl (0.2-1.3); Total Protein 6.4 g/dl (6.3-8.2); eGFR > 60.00
[2025-04-02 12:00] VITALS: BP 162/67
--- NOTE | 2025-04-02 12:22 | CON.MD ---
Consultation - Medical
-
dictated
acute R tonsillitis, does not appear to have an abscess but pt is immunocompromised.
OK to dc to home on po abx (augmentin a good choice). gargle frequently. call or return to ER if sx worsen.
--- NOTE | 2025-04-02 16:10 | DOWNTIME ---
There was a [employer] Sample Downtime on 04/02/2025 from 1230 to 04/02/2025 at 1550. Downtime documentation of patient's care, including medication administrations, has been reconciled in the electronic record per guidelines. Refer to the
patient's paper chart under the miscellaneous tab to see printed paper medication records and downtime forms.
== END 2025-04-02 12:45 | disposition home or self-care (01) ==
LOC: EMR 08:58
PROVIDERS: Physician Assistant; EMERGENCY PHYSICIAN Student in an Organized Health Care Education/Training Program; FAMILY PHYSICIAN Nurse Practitioner Family; OTHER PHYSICIAN Otolaryngology
DX: J03.90 Acute tonsillitis, unspecified (principal); Z79.01 Long term (current) use of anticoagulants; I25.10 Atherosclerotic heart disease of native coronary artery without angina pectoris; Z94.0 Kidney transplant status; I10 Essential (primary) hypertension; E11.9 Type 2 diabetes mellitus without complications; D84.9 Immunodeficiency, unspecified
CPT/HCPCS: 99284; 96374; 80053; 85025; 87070; 87880